=== PATIENT | male | born 1950 | race Caucasian/White ===

== ENCOUNTER 2018-02-21 05:51 | Inpatient (IN) | payer OTHER ==
[2018-02-21] MEDS ORDERED: ASPIRIN 81 MG CHEWABLE TABLET ONE (06:17)
[2018-02-21] MEDS ORDERED: DEXAMETHASONE 10 MG/ML VIAL ONE (06:18)
[2018-02-21] MEDS ORDERED: Magnesium Sulfate 2gm IVPB 2 G/50 ML BAG IV ONE (06:18)
[2018-02-21] MEDS ORDERED: LEVALBUTEROL 1.25 MG/3 ML NEB ONE (06:18)
[2018-02-21 06:53] LABS: Arterial Blood Carboxyhemoglob 0.7 % (0-1.5); Blood Gas Oxyhemoglobin 97.6 % (94-97)
[2018-02-21 07:36] LABS: Protime INR 1.02
[2018-02-21 07:38] LABS: Absolute Lymphocytes (CBC) 0.3 K/uL (0.7-4.9); Absolute Monocytes 0.3 K/uL (0.1-1.3); Absolute Neutrophil 3.8 K/uL (1.8-8.0); Basophils % 0.3 % (0-1.3); Hematocrit 47.7 % (39.6-49.0); Lymphocytes % 6.8 % (15.3-44.8); MCH 32.3 pg (27.0-35.0); MPV 7.6 fL (7.6-11.3); Monocytes % 6.6 % (3.3-12.3); RBC Red Blood Cell Count 4.97 M/uL (4.33-5.43)
[2018-02-21 07:49] LABS: Potassium 4.6 mEq/L (3.6-5.0)
[2018-02-21 07:55] LABS: Albumin 5.2 g/dL (3.2-5.5); Bilirubin Direct 0.1 mg/dL (0-0.2); Bilirubin Total 1.1 mg/dL (0.3-1.2); Magnesium 2.1 mg/dL (1.8-2.5); Protein, Total 8.6 g/dL (6.0-8.3)
--- NOTE | 2018-02-21 08:04 | ER ---
Nurse's Notes [facility] Department Name: Zane Dave Age: 67 yrs Sex: Male : 1950 Arrival Date: 02/21/2018 Time: 05:52 Bed 4 Private MD: Diagnosis: Chronic obstructive pulmonary disease with (acute) exacerbation Presentation: 02/21 05:53 Presenting complaint: EMS states: Shortness of breath x3 days; Hx of COPD; Albuterol lp1 nebs at home with no relief; On arrival of EMS, Patient 88% on RA; Wears home O2 when needed. Transition of care: patient was not received from another setting of care. Onset of symptoms was February 18, 2018. Care prior to arrival: Medication(s) given: Albuterol Neb x 2, Atrovent Neb x 2. 05:53 Method Of Arrival: EMS: [facility] lp1 05:53 Acuity: TABBY 2 lp1 Triage Assessment: 05:57 General: Appears distressed, Behavior is cooperative. Respiratory: Airway is patent lp1 Trachea midline Respiratory effort is labored, with retractions, using tripod position, Respiratory pattern is tachypnea Onset: The symptoms/episode began/occurred gradually, the patient has severe shortness of breath. Historical: - Allergies: 05:56 No Known Allergies; lp1 - Home Meds: 05:56 albuterol sulfate 2.5 mg /3 mL (0.083 %) Inhl nebu 3 mL 3 times per day [Active]; lp1 amlodipine 10 mg tab 1 tab once daily [Active]; prednisone 5 mg Oral tab once daily [Active]; ProAir HFA inhalation [Active]; - PMHx: 05:56 Asthma; COPD; Hypertension; lp1 - PSHx: 05:56 None; lp1 - Immunization history:: Adult Immunizations up to date. - Social history:: Smoking status: Patient/guardian denies using tobacco, the patient reports quitting approximately 20 years ago. Screenin:58 Abuse screen: Denies threats or abuse. Denies injuries from another. Nutritional lp1 screening: No deficits noted. Tuberculosis screening: No symptoms or risk factors identified. Fall Risk Total Santana Fall Scale indicates High Risk Score (45 or more points). Fall prevention measures have been instituted. Side Rails Up X 2 As available patient and family educated on Fall Prevention Program and Strategies. Assessment: 06:00 General: Appears distressed, uncomfortable, Behavior is cooperative, appropriate for bs1 age, anxious. Pain: Denies pain. Neuro: Level of Consciousness is awake, alert, obeys commands, Oriented to person, place, time, situation, Appropriate for age [employer] Reset are equal bilaterally Moves all extremities. Gait is steady, Speech is normal, Facial symmetry appears normal. Cardiovascular: Reports diaphoresis, shortness of breath, Denies chest pain, Heart tones S1 S2 present Capillary refill < 3 seconds Patient's skin is warm and dry. Rhythm is regular. Respiratory: Reports shortness of breath at rest on exertion cough that is productive, Airway is patent Trachea midline Respiratory effort is using tripod position, Respiratory pattern is tachypnea Breath sounds with wheezes bilaterally. GI: No deficits noted. No signs and/or symptoms were reported involving the gastrointestinal system. Abdomen is round Bowel sounds present X 4 quads. : No deficits noted. No signs and/or symptoms were reported regarding the genitourinary system. EENT: No deficits noted. No signs and/or symptoms were reported regarding the EENT system. Derm: No deficits noted. No signs and/or symptoms reported regarding the dermatologic system. Skin is intact, Skin is pink, warm \T\ dry. Skin temperature is warm. Musculoskeletal: No deficits noted. No signs and/or symptoms reported regarding the musculoskeletal system. Circulation, motion, and sensation intact. Capillary refill < 3 seconds, Range of motion: intact in all extremities. 06:10 Reassessment: BiPAP placed on patient at this time; 10/14, Rate 12, 30% O2. lp1 06:35 Reassessment: Patient and/or family updated on plan of care and expected duration. Pain bs1 level reassessed. Patient is alert, oriented x 3, equal unlabored respirations, skin warm/dry/pink. Symptoms improving. Patient on bipap. Respiratory at bedside drawing ABG. 07:30 Reassessment: Patient appears in no apparent distress at this time. Patient and/or sv family updated on plan of care and expected duration. Pain level reassessed. Patient is alert, oriented x 3, equal unlabored respirations, skin warm/dry/pink. Patient states feeling better. Patient states symptoms have improved. 09:17 Reassessment: Patient appears in no apparent distress at this time. Patient and/or sv family updated on plan of care and expected duration. Pain level reassessed. Patient is alert, oriented x 3, equal unlabored respirations, skin warm/dry/pink. Patient states feeling better. Patient states symptoms have improved. Vital Signs: 05:56 BP 150 / 111; Pulse 103; Resp 26; Temp 98.5(O); Pulse Ox 97% on Nebulizer Mask; Weight lp1 102.06 kg; Height 6 ft. 1 in. (185.42 cm); Pain 5/10; 06:09 BP 145 / 83; Pulse 88; Resp 16; Pulse Ox 99% on BiPAP; mt 07:30 BP 130 / 66; Pulse 70; Resp 16; Pulse Ox 97% on 30% BiPAP; sv 08:20 BP 125 / 63; Pulse 59; Resp 19; Pulse Ox 95% on 30% BiPAP; sv 09:17 BP 127 / 73; Pulse 59; Resp 12; Pulse Ox 96% on 30% BiPAP; sv 05:56 Body Mass Index 29.68 (102.06 kg, 185.42 cm) lp1 Andres Coma Score: 05:58 Eye Response: spontaneous(4). Verbal Response: oriented(5). Motor Response: obeys lp1 commands(6). Total: 15. ED Course: 05:52 Patient arrived in ED. lp1 05:52 Warren Greenberg MD is Attending Physician. nj 05:55 Triage completed. lp1 05:55 Arm band placed on right wrist. lp1 05:58 Inserted saline lock: 20 gauge in left antecubital area, using aseptic technique. Blood lp1 collected. By Bess Chavarria RN. 05:59 Patient has correct armband on for positive identification. Bed in low position. Call lp1 light in reach. gambling monitor on. Pulse ox on. NIBP on. 06:01 EKG done, by ED staff, reviewed by Warren Greenberg MD. mt 06:07 Levi Montgomery PA is PHCP. cp 06:30 Bess Chavarria, RN is Primary Nurse. bs1 07:01 Report given to GERARDO Jamil. bs1 08:03 Catina Isaac MD is Hospitalizing Provider. cp 09:14 Blood Culture Sent. sv 09:14 Influenza Screen (A Sent. sv 09:19 No provider procedures requiring assistance completed. Patient admitted, IV remains in sv place. intact. Administered Medications: 06:09 Drug: Aspirin Chewable Tablet 324 mg Route: PO; tl2 06:34 Follow up: Response: No adverse reaction bs1 06:09 Drug: Xopenex 1.25 mg Route: Inhalation; tl2 06:09 Drug: Decadron - Dexamethasone 10 mg Route: IVP; Site: left antecubital; tl2 06:34 Follow up: Response: No adverse reaction bs1 06:09 Drug: Magnesium Sulfate 2 grams Route: IVPB; Infused Over: 2 hrs; Site: left tl2 antecubital; 06:09 Drug: Xopenex (3) 1.25 mg Route: Inhalation; tl2 Outcome: 08:03 Decision to Hospitalize by Provider. cp 09:21 Admitted to Tele accompanied by tech, via stretcher, room 228, with oxygen, with chart, sv Report called to Araceli CARRILLO 09:21 Condition: stable 09:21 Instructed on the need for admit. 09:43 Patient left the ED. sv Signatures: Loulou Florez, RN RN sv Alvina Cardenas, RN RN lp1 Levi Montgomery PA PA cp Katarzyna Ureña, RN RN tl2 Aminata Feldman mt, William, MD MD wa Salazar, Brittany, RN RN bs1
--- NOTE | 2018-02-21 08:04 | EDPHYS ---
Physician Documentation [facility] Name: Zane Dave Age: 67 yrs Sex: Male : 1950 Arrival Date: 02/21/2018 Time: 05:52 Bed 4 Private MD: ED Physician Warren Gerenberg HPI: 02/21 06:09 This 67 yrs old Male presents to ER via EMS with complaints of Shortness Of cp Breath. 06:09 The patient has shortness of breath at rest. Onset: The symptoms/episode began/occurred cp 3 day(s) ago. Duration: The symptoms are continuous, and are steadily getting worse. Associated signs and symptoms: Pertinent negatives: chest pain, fever, hemoptysis. Historical: - Allergies: 05:56 No Known Allergies; lp1 - Home Meds: 05:56 albuterol sulfate 2.5 mg /3 mL (0.083 %) Inhl nebu 3 mL 3 times per day [Active]; lp1 amlodipine 10 mg tab 1 tab once daily [Active]; prednisone 5 mg Oral tab once daily [Active]; ProAir HFA inhalation [Active]; - PMHx: 05:56 Asthma; COPD; Hypertension; lp1 - PSHx: 05:56 None; lp1 - Immunization history:: Adult Immunizations up to date. - Social history:: Smoking status: Patient/guardian denies using tobacco, the patient reports quitting approximately 20 years ago. ROS: 06:10 Eyes: Negative for injury, pain, redness, and discharge. cp 06:10 Constitutional: Negative for body aches, chills, fever, poor PO intake. 06:10 ENT: Negative for drainage from ear(s), ear pain, sore throat, difficulty swallowing, difficulty handling secretions. 06:10 Cardiovascular: Negative for chest pain, edema, palpitations. 06:10 Respiratory: Positive for shortness of breath, at rest. wheezing. 06:10 Abdomen/GI: Negative for abdominal pain, nausea, vomiting, and diarrhea, black/tarry stool, rectal bleeding. 06:10 Neuro: Negative for altered mental status, dizziness, headache, weakness. 06:10 All other systems are negative. Exam: 06:07 ECG was reviewed by the Attending Physician. cp 06:12 Head/Face: Normocephalic, atraumatic. cp 06:12 Constitutional: The patient appears in no acute distress, alert, awake, non-diaphoretic, non-toxic, well developed, well nourished. 06:12 Eyes: Periorbital structures: appear normal, Pupils: equal, round, and reactive to light and accomodation, Extraocular movements: intact throughout, Conjunctiva: normal, no exudate, no injection, Sclera: no appreciated abnormality, Lids and lashes: appear normal, bilaterally. 06:12 ENT: External ear(s): are unremarkable, Nose: is normal, Mouth: is normal. 06:12 Neck: ROM/movement: is normal, is supple, without pain, no range of motions limitations, no meningismus, no nuchal rigidity. 06:12 Chest/axilla: Inspection: normal, Palpation: is normal, no crepitus, no tenderness. 06:12 Cardiovascular: Rate: normal, Rhythm: regular, Edema: is not appreciated, JVD: is not appreciated. 06:12 Respiratory: Respirations: labored breathing, Breath sounds: decreased breath sounds, that are moderate, throughout, stridor, is not appreciated, wheezing: that is mild, is heard diffusely. 06:12 Abdomen/GI: Inspection: abdomen appears normal, Bowel sounds: active, all quadrants, Palpation: abdomen is soft and non-tender, in all quadrants. 06:12 Skin: cellulitis, is not appreciated, no rash present. 06:12 Neuro: Orientation: to person, place \T\ time. Mentation: lucid, able to follow commands, Cerebellar function: is grossly normal, Motor: moves all fours, strength is normal. Vital Signs: 05:56 BP 150 / 111; Pulse 103; Resp 26; Temp 98.5(O); Pulse Ox 97% on Nebulizer Mask; Weight lp1 102.06 kg; Height 6 ft. 1 in. (185.42 cm); Pain 5/10; 06:09 BP 145 / 83; Pulse 88; Resp 16; Pulse Ox 99% on BiPAP; mt 07:30 BP 130 / 66; Pulse 70; Resp 16; Pulse Ox 97% on 30% BiPAP; sv 08:20 BP 125 / 63; Pulse 59; Resp 19; Pulse Ox 95% on 30% BiPAP; sv 09:17 BP 127 / 73; Pulse 59; Resp 12; Pulse Ox 96% on 30% BiPAP; sv 05:56 Body Mass Index 29.68 (102.06 kg, 185.42 cm) lp1 Andres Coma Score: 05:58 Eye Response: spontaneous(4). Verbal Response: oriented(5). Motor Response: obeys lp1 commands(6). Total: 15. MDM: 05:52 Patient medically screened. pa 06:15 Differential diagnosis: asthma, Bronchitis CHF exacerbation, Chronic Obstructive cp Pulmonary Disease Myocardial Infarction pneumonia, Pneumothorax reactive airway disease, Unstable Angina. 08:00 Data reviewed: vital signs, nurses notes, lab test result(s), EKG, radiologic studies, cp plain films. Test interpretation: by ED physician or midlevel provider: ECG, plain radiologic studies. 08:00 Counseling: I had a detailed discussion with the patient and/or guardian regarding: the cp historical points, exam findings, and any diagnostic results supporting the discharge/admit diagnosis, lab results, radiology results, the need for further work-up and treatment in the hospital. 08:00 Physician consultation: Catina Isaac MD was called at 08:00, was contacted at 08:00, regarding admission, to the telemetry unit. patient's condition. 02/21 05:54 Order name: Blood Culture Adult (2) 02/21 05:54 Order name: BMP 02/21 05:54 Order name: BNP 02/21 05:54 Order name: CBC with Diff 02/21 05:54 Order name: CPK 02/21 05:54 Order name: Hepatic Function 02/21 05:54 Order name: Magnesium 02/21 05:54 Order name: PT-INR 02/21 05:54 Order name: Troponin (emerg Dept Use Only) 02/21 05:56 Order name: Flu 02/21 05:58 Order name: ABG 02/21 06:54 Order name: ABG Arterial Blood Gas; Complete Time: 07:42 EDMS 02/21 07:05 Interpretation: Normal except: ABGPCO2 45.7; ABGPO2 149.0; ABGSO2 99.0; DGDF1OE 97.6. cp 02/21 07:41 Order name: CBC with Automated Diff; Complete Time: 07:42 EDMS 02/21 07:42 Interpretation: Normal except: EDITH% 86.3; LYM% 6.8; LYMA 0.3. 02/21 07:42 Order name: Protime (+INR); Complete Time: 07:52 EDMS 02/21 05:54 Order name: BIPAP pa 02/21 05:55 Order name: Chest Single View XRAY pa 02/21 07:48 Order name: Influenza Screen (A ; Complete Time: 07:52 EDMS 02/21 07:53 Interpretation: Reviewed. 02/21 07:49 Order name: Basic Metabolic Panel; Complete Time: 07:59 EDMS 02/21 07:59 Interpretation: Normal except: GLUC 185; GFR 76. 02/21 07:55 Order name: Liver (Hepatic) Function; Complete Time: 07:59 EDMS 02/21 08:00 Interpretation: Normal except: TP 8.6. 02/21 07:55 Order name: Creatine Phosphokinase; Complete Time: 07:59 EDMS 02/21 07:55 Order name: Magnesium; Complete Time: 07:59 EDMS 02/21 08:00 Interpretation: Reviewed. 02/21 07:56 Order name: Troponin (Emerg Dept Use Only); Complete Time: 07:59 EDMS 02/21 08:00 Interpretation: TROPED < 0.03; Reviewed. 02/21 07:59 Order name: BNP B-Type Natriuretic Peptide; Complete Time: 07:59 EDMS 02/21 08:00 Interpretation: Report reviewed. 02/21 08:35 Order name: RAD [facility] 02/21 08:37 Order name: CBC with Automated Diff [facility] 02/21 08:37 Order name: CBC Smear Scan [facility] 02/21 08:53 Order name: Influenza Screen (A [facility] 02/21 08:54 Order name: Blood Culture [facility] 02/21 05:54 Order name: EKG; Complete Time: 05:55 pa 02/21 05:54 Order name: Cardiac monitoring; Complete Time: 05:59 pa 02/21 05:54 Order name: EKG - Nurse/Tech; Complete Time: 06:00 pa 02/21 05:54 Order name: IV Saline Lock; Complete Time: 05:59 pa 02/21 05:54 Order name: Labs collected and sent; Complete Time: 06:00 pa 02/21 05:54 Order name: O2 Per Protocol; Complete Time: 05:59 pa 02/21 05:54 Order name: O2 Sat Monitoring; Complete Time: EC:07 Rate is 95 beats/min. Rhythm is regular. KS interval is normal. QRS interval is cp prolonged at 136 msec. QT interval is normal. No ST changes noted. Interpreted by me. Reviewed by me. Administered Medications: 06:09 Drug: Aspirin Chewable Tablet 324 mg Route: PO; tl2 06:34 Follow up: Response: No adverse reaction bs1 06:09 Drug: Xopenex 1.25 mg Route: Inhalation; tl2 06:09 Drug: Decadron - Dexamethasone 10 mg Route: IVP; Site: left antecubital; tl2 06:34 Follow up: Response: No adverse reaction bs1 06:09 Drug: Magnesium Sulfate 2 grams Route: IVPB; Infused Over: 2 hrs; Site: left tl2 antecubital; 06:09 Drug: Xopenex (3) 1.25 mg Route: Inhalation; tl2 Disposition: 02/21/18 08:03 Hospitalization ordered by Catina Isaac for Inpatient Admission. Preliminary diagnosis is Chronic obstructive pulmonary disease with (acute) exacerbation. - Bed requested for Telemetry/MedSurg (Inpatient). - Status is Inpatient Admission. sv - Condition is Stable. - Problem is an acute exacerbation. - Symptoms have improved. UTI on Admission? No Addendum: 02/23/2018 07:00 Co-signature as Attending Physician, Warren Greenberg MD I agree with the assessment and w a plan of care. Signatures: Dispatcher [employer] EDMS Aline Almanzar Stephanie, RN RN Alvina Cardenas RN RN lp1 Levi Montgomery PA PA cp Katarzyna Ureña RN RN tl2 Warren Greenberg MD MD wa Salazar, Brittany RN bs1 Corrections: (The following items were deleted from the chart) 02/21 07:42 07:42 Normal except: EDITH% 86.3; LYM% 6.8. cp cp 08:00 07:53 Normal except: GLUC 185. cp cp
--- NOTE | 2018-02-21 08:34 | RAD REPORT ---
EXAM DESCRIPTION: RAD - Chest Single View - 02/21/2018 8:10 am CLINICAL HISTORY: Shortness of breath COMPARISON: October 2017 TECHNIQUE: AP portable chest image was obtained 0601 hours . FINDINGS: No focal mass, consolidation or failure. Interstitial markings are prominent but not clear ly different. Slight eventration of the diaphragm noted. Trachea is midline. Heart and vasculature ar e normal. No measurable pleural effusion and no pneumothorax. No gross bony abnormality seen. No acut e aortic findings suspected. IMPRESSION: Mild chronic interstitial lung disease with no acute cardiopulmonary process. Chest findings are stable from October 2017.
[2018-02-21 08:36] LABS: Platelet Estimate ADEQ; Urine White Blood Cell Casts OK
[2018-02-21 08:37] LABS: Blood Morphology Comment NOT SEEN (NOT SEEN)
[2018-02-21] MEDS ORDERED: ONDANSETRON 4 MG/2 ML VIAL IV PRN (09:16)
--- NOTE | 2018-02-21 10:47 | EKG ---
Test Date: 2018-02-21 Test Time: 05:55:36 Grievance And Appeals Coordinator: WILLIAM MEASUREMENT RESULTS: Intervals: Rate: 95 UT: 152 QRSD: 136 QT: 376 QTc: 472 [place]: P: 77 UT: 152 QRS: 94 T: 74 INTERPRETIVE STATEMENTS: Normal sinus rhythm Right atrial enlargement Right bundle branch block Abnormal ECG Compared to ECG 10/29/2017 04:22:01 Atrial abnormality now present Electronically Signed On 02-21-18 10:47:04 CDT by Aryan Isidro
[2018-02-21] MEDS: ALBUTEROL 2.5 MG/3 ML NEB SOL NEB SCH ×4 (11:22→23:11)
[2018-02-21] MEDS: IPRATROPIUM BROM 0.5MG/2.5ML NEB SCH ×4 (11:23→23:11)
[2018-02-21] MEDS ORDERED: IPRATROPIUM BROM 0.5MG/2.5ML ONE (11:34)
[2018-02-21] MEDS ORDERED: ALBUTEROL 2.5 MG/3 ML NEB SOL ONE (11:34)
[2018-02-21] MEDS: predniSONE 20 MG TAB PO SCH ×2 (13:53→21:22)
[2018-02-21] MEDS ORDERED: IPRATROPIUM BROM 0.5MG/2.5ML NEB SCH (14:00)
[2018-02-21] MEDS ORDERED: ALBUTEROL 2.5 MG/3 ML NEB SOL NEB SCH (14:00)
--- NOTE | 2018-02-21 15:06 | P.HP ---
Certification for Inpatient Patient admitted to: Observation With expected LOS: >2 Midnights Patient will require the following post-hospital care: None Practitioner: I am a practitioner with admitting privileges, knowledge of patient current condition, hospital course, and medical plan of care. Services: Services provided to patient in accordance with Admission requirements found in Title 42 Section 412.3 of the Code of Federal Regulations Patient History Date of Service: 02/21/18 Primary Care Provider: Dr Lovelace Reason for admission: SOB History of Present Illness: This is a 67-year-old male with significant past medical history of COPD and high blood pressure presented to the ED complaining of having some shortness of breath. Pt states his difficulty breathing is going on for a week. He said he has been having cough and exertional dyspnea. He has not been improving. He came to the emergency room for further evaluation. Patient stated that he woke up this morning with a lot of sweating and his bed was wet. He had been having low-grade fevers at home as well. Patient stated that he has had similar episodes in the past and has probably used his albuterol and got better however this time around albuterol had not helped him and thus he decided to come to the ER. In the ER patient was placed on BiPAP initially and was weaned off to nasal cannula. Clinically patient is stable at this time does appear to be in mild distress due to dyspnea. Allergies No Known Drug Allergies Allergy (Verified 02/05/16 01:06) Unknown No Known Allergies Allergy (Uncoded 02/08/16 05:25) Unknown Home Medications: Albuterol Neb [Proventil 0.083% Neb Soln] 2.5 mg IH QID 02/04/12 Albuterol Inhaler [Ventolin Inhaler*] 90 mg IN BID PRN 05/19/15 Umeclidinium Brm/Vilanterol Tr [Anoro Ellipta 62.5-25 Mcg INH] 1 inh IH DAILY Ipratropium Neb [Atrovent Neb] 0.5 mg IH Q4HP PRN 04/16/16 Prednisone [Deltasone] 20 mg PO DAILY 04/16/16 Amlodipine Besylate [Amlodipine Besylate] 1 tab PO DAILY 02/21/18 Lisinopril [Prinivil] 10 mg PO DAILY 02/21/18 - Past Medical/Surgical History Diabetic: No -: copd -: Asthma -: HTN -: bilateral hand sx -: tonsilectomy - Family History Mother -: Heart disease, Hypertension, Lung disease, Diabetes Notes: hx dementia 92 years old Father -: Heart disease, Hypertension, Lung disease, Diabetes Notes: , passed 1994 80 years old COPD Brother -: Heart disease, Hypertension, Lung disease, Cancer Notes: brother , 71 years old lung ca brain ca Sister -: Heart disease, Cancer Notes: ca: leg, varicose veins, brain ca - Social History Alcohol use: Yes CD- Drugs: No Caffeine use: Yes Review of Systems General: As per HPI Physical Examination - Vital Signs Temperature: 97.7 F Blood Pressure: 198/93 Pulse: 77 Respirations: 20 Pulse Ox (%): 95 - Physical Exam General: Alert, Oriented x3, Mild distress HEENT: Atraumatic Neck: Supple Respiratory: Normal air movement, Crackles/rales, Expiratory wheezes, Inspiratory wheezes Cardiovascular: Regular rate/rhythm, Normal S1 S2 Gastrointestinal: Normal bowel sounds, No tenderness Musculoskeletal: No tenderness Integumentary: No rashes Neurological: Normal speech, Normal strength at 5/5 x4 extr, Normal tone, Normal affect Lymphatics: No axilla or inguinal lymphadenopathy - Studies Laboratory Data (last 24 hrs) 02/21/18 06:00: PT 12.0, INR 1.02 02/21/18 06:00: WBC 4.4, Hgb 16.0, Hct 47.7, Plt Count 235 02/21/18 06:00: B-Natriuretic Peptide 21 02/21/18 06:00: Sodium 141, Potassium 4.6, BUN 13, Creatinine 0.99, Glucose 185 H, Magnesium 2.1, Total Bilirubin 1.1, AST 26, ALT 20, Alkaline Phosphatase 73 02/21/18 05:54: PT Cancelled, INR Cancelled 02/21/18 05:54: WBC Cancelled, Hgb Cancelled, Hct Cancelled, Plt Count Cancelled 02/21/18 05:54: B-Natriuretic Peptide Cancelled 02/21/18 05:54: Sodium Cancelled, Potassium Cancelled, BUN Cancelled, Creatinine Cancelled, Glucose Cancelled, Magnesium Cancelled, Total Bilirubin Cancelled, AST Cancelled, ALT Cancelled, Alkaline Phosphatase Cancelled Microbiology Data (last 24 hrs): 02/21/18 06:00 Nasopharnyx Influenza Type A Antigen Screen - Final 02/21/18 06:00 Nasopharnyx Influenza Type B Antigen Screen - Final Assessment and Plan - Problems (Diagnosis) (1) COPD with acute exacerbation Onset Date: 04/16/16 Current Visit: No Status: Acute Plan: Most likely viral -Duonebs, Steriods and Oxygen -Does have home oxygen that he uses PRN -Pulmonology Consulted (2) Hypertension Onset Date: 04/16/16 Current Visit: No Status: Acute Plan: Will restart home medication Qualifiers: Hypertension type: essential hypertension Qualified Code(s): I10 - Essential (primary) hypertension Discharge Plan: Home Plan to discharge in: 48 Hours - Advance Directives Does patient have a Living Will: No Does patient have a Durable POA for Healthcare: No - Code Status/Comfort Care Code Status Assessed: Yes Critical Care: No
[2018-02-21 15:52] VITALS: BMI 29.7
[2018-02-21] MEDS ORDERED: INFLUENZA VACCINE (for 3y+) 0.5 ML DOSE IMVAC ONE (18:00)
[2018-02-21] MEDS ORDERED: PNEUMOCOCCAL VACCINE 0.5 ML IMVAC ONE (18:00)
[2018-02-21] MEDS: ACETAMINOPHEN 500 MG TAB PO PRN (21:26)
[2018-02-22] MEDS: IPRATROPIUM BROM 0.5MG/2.5ML NEB SCH ×4 (03:32→19:27)
[2018-02-22] MEDS: ALBUTEROL 2.5 MG/3 ML NEB SOL NEB SCH ×2 (03:32→07:42)
[2018-02-22] MEDS: ACETAMINOPHEN 500 MG TAB PO PRN (03:52)
[2018-02-22] MEDS ORDERED: AMLODIPINE 5 MG TAB PO ONE (04:03)
[2018-02-22 06:10] LABS: Absolute Lymphocytes (CBC) 0.5 K/uL (0.7-4.9); Absolute Monocytes 0.8 K/uL (0.1-1.3); Absolute Neutrophil 6.8 K/uL (1.8-8.0); Basophils % 0.2 % (0-1.3); Hematocrit 42.8 % (39.6-49.0); MCH 32.8 pg (27.0-35.0); MCV 94.2 fL (80-100); MPV 7.5 fL (7.6-11.3); Monocytes % 10.2 % (3.3-12.3); RBC Red Blood Cell Count 4.54 M/uL (4.33-5.43)
[2018-02-22 06:32] LABS: Albumin 4.3 g/dL (3.2-5.5); Bilirubin Total 1.1 mg/dL (0.3-1.2); Magnesium 2.2 mg/dL (1.8-2.5); Potassium 5.1 mEq/L (3.6-5.0); Protein, Total 6.9 g/dL (6.0-8.3)
--- NOTE | 2018-02-22 07:36 | RAD REPORT ---
EXAM DESCRIPTION: RAD - Chest Pa And Lat (2 Views) - 02/22/2018 6:50 am CLINICAL HISTORY: Shortness of breath COMPARISON: February 21, November 29, 2017 TECHNIQUE: PA and lateral views of the chest were obtained. FINDINGS: The lungs are clear of a focal mass, infiltrate or acute failure finding. Trachea is midli ne. There is slight flattening of the diaphragm. Retrosternal space is increased slightly. Heart siz e is normal and central vasculature is within normal limits. No pleural effusion or pneumothorax see n. No acute bony finding. Thoracic spine degenerative changes are present without an acute component . Focal nodularity lateral right midlung field has the appearance of a subacute or old rib injury. A this is difficult to confirm on the October comparison study. Correlation is needed with any history of anterior right rib injury. Pathologic rib process is unlikely. No aortic abnormality. IMPRESSION: Patient has an underlying fibrotic an obstructive lung pattern. No acute findings seen. Patient appears to have subacute to chronic anterior right rib fracture changes. These cannot be conf irmed on the October study. Correlation is needed with any history of anterior right rib injury.
--- NOTE | 2018-02-22 08:31 | P.CNS ---
Date of Consult: 02/22/18 Reason for Consult: Shortness of breath Primary Care Provider: Dr Lovelace Chief Complaint: SOB History of Present Illness: Patient is 67 years of age well known to me with a history of severe COPD recurrent exacerbation got worse for the past 4-5 days worsening dyspnea nocturnal sleep distal arm and cough congestion was admitted to the hospital patient takes prednisone 10 mg a day in addition to nebulizer albuterol and ipratropium he cannot afford any long-acting bronchodilators denies any fever chills no edema Allergies No Known Drug Allergies Allergy (Verified 02/05/16 01:06) Unknown No Known Allergies Allergy (Uncoded 02/08/16 05:25) Unknown Home Medications: Albuterol Neb [Proventil 0.083% Neb Soln] 2.5 mg IH QID 02/04/12 Albuterol Inhaler [Ventolin Inhaler*] 90 mg IN BID PRN 05/19/15 Umeclidinium Brm/Vilanterol Tr [Anoro Ellipta 62.5-25 Mcg INH] 1 inh IH DAILY Ipratropium Neb [Atrovent Neb] 0.5 mg IH Q4HP PRN 04/16/16 Prednisone [Deltasone] 20 mg PO DAILY 04/16/16 Amlodipine Besylate [Amlodipine Besylate] 1 tab PO DAILY 02/21/18 Lisinopril [Prinivil] 10 mg PO DAILY 02/21/18 - Past Medical/Surgical History Diabetic: No -: copd -: HTN -: bilateral hand sx -: tonsilectomy - Family History Mother Medical History: Heart disease, Hypertension, Lung disease, Diabetes Notes: hx dementia 92 years old Father Medical History: Heart disease, Hypertension, Lung disease, Diabetes Notes: , 1994 80 years old COPD Brother Medical History: Heart disease, Hypertension, Lung disease, Cancer Notes: brother , 71 years old lung ca brain ca Sister Medical History: Heart disease, Cancer Notes: ca: leg, varicose veins, brain ca - Social History Smoking Status: Former smoker Alcohol use: Yes CD- Drugs: No Caffeine use: Yes Review of Systems 10-point ROS is otherwise unremarkable General: Weakness Respiratory: Cough, Shortness of Breath Physical Examination Temp Pulse Resp BP Pulse Ox 97.6 F 76 20 184/88 H 96 02/22/18 04:00 02/22/18 04:52 02/22/18 04:00 02/22/18 04:52 02/22/18 04:00 General: Alert, Moderate distress Respiratory: Expiratory wheezes Cardiovascular: No edema, Regular rate/rhythm Gastrointestinal: Normal bowel sounds, Soft and benign Musculoskeletal: No clubbing, No swelling Integumentary: No rashes, No breakdown Laboratory Data (last 24 hrs) 02/21/18 05:54: PT Cancelled, INR Cancelled 02/21/18 05:54: WBC Cancelled, Hgb Cancelled, Hct Cancelled, Plt Count Cancelled 02/21/18 05:54: B-Natriuretic Peptide Cancelled 02/21/18 05:54: Sodium Cancelled, Potassium Cancelled, BUN Cancelled, Creatinine Cancelled, Glucose Cancelled, Magnesium Cancelled, Total Bilirubin Cancelled, AST Cancelled, ALT Cancelled, Alkaline Phosphatase Cancelled - Problems (1) COPD with acute exacerbation Onset Date: 04/16/16 Current Visit: No Status: Acute Plan: Patient is 67 years of age admitted 4-5 day history of increasing shortness of breath chest congestion he has an exacerbation of underlying COPD continue with bronchodilator steroid labs reviewed and a p.o. 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
[2018-02-22] MEDS ORDERED: FUROSEMIDE 20 MG/ 2ML VIAL IV ONE (08:32)
[2018-02-22] MEDS ORDERED: [UNRECOGNIZED DRUG - OTHER] IH SCH (09:00)
[2018-02-22] MEDS: predniSONE 20 MG TAB PO SCH ×2 (09:30→21:01)
[2018-02-22] MEDS: hydroCHLOROthiazide 12.5 MG CAP PO SCH (09:30)
[2018-02-22] MEDS: AMLODIPINE 10 MG TAB PO SCH (09:31)
[2018-02-22] MEDS: LISINOPRIL 10 MG TAB PO SCH (09:31)
[2018-02-22] MEDS: levoFLOXacin 500 MG TAB PO SCH (09:31)
[2018-02-22] MEDS: BENZONATATE 100 MG CAP PO PRN ×2 (10:43→21:03)
[2018-02-22] MEDS: ALBUTEROL 2.5 MG/3 ML NEB SOL NEB PRN ×2 (11:36→19:27)
[2018-02-22] MEDS: ARFORMOTEROL TARTRATE 15 MCG/2 ML VIAL.NEB NEB SCH ×2 (11:36→19:27)
--- NOTE | 2018-02-22 18:46 | PN ---
Date of Progress Note: 02/22/2018 The patient seen and examined. Chart reviewed and case discussed with RN. Subjective: The patient states that he is still having some shortness of breath, worse with exertion also reports some cough. Review of Systems: Negative except as above. Medications: Reviewed. Physical Examination: Vital Signs: Temperature 97.6, heart rate 79, blood pressure 158/76, respirations 16, O2 95% on 3 L via nasal cannula. General: Awake, alert, oriented x3, in some mild respiratory distress. Elderly male, ill appearing. CV: S1, S2. No murmurs. Regular rate and rhythm. Peripheral pulses present. Respiratory: Diminished breath sounds bilaterally. Some mild wheezing. Gastrointestinal: Abdomen is soft, nontender, nondistended. Positive bowel sounds. Extremities: No clubbing, cyanosis, or edema. Neurologic: Nonfocal. Laboratory Data: Sodium 138, potassium 5.1, chloride 102, CO2 27, BUN 21, creatinine 0.98, glucose 1 53, calcium 9.2. WBC 8.1, H and H 14.9, 42.8, platelets 219, neutrophils 83%. Chest x-ray, personal ly reviewed, shows underlying fibrotic and obstructive lung pattern. No acute finding. The patient appears to have a subacute to chronic anterior right rib fracture changes. This cannot be confirmed with the Pasha study. Assessment And Plan: A 67-year-old male with: 1.Acute chronic obstructive pulmonary disease exacerbation. We will continue with DuoNeb, supplemen swapnil oxygen. The patient does require oxygen at home. However, only as needed. Continue steroids an d taper. Appreciate Dr. Frank's input. 2.Essential hypertension. Resume home medications as appropriate. 3.Overweight, BMI 29.7. 4.Chronic respiratory failure. The patient is on home oxygen for chronic obstructive pulmonary dise ase. Has underlying fibrotic lung disease and severe chronic obstructive pulmonary disease. Plan: Continue current treatment. Appreciate Dr. Frank's input. SA/SHE Voice ID: [id number] Report ID: [id number]
[2018-02-23] MEDS: IPRATROPIUM BROM 0.5MG/2.5ML NEB SCH ×4 (01:23→19:49)
[2018-02-23] MEDS: ALBUTEROL 2.5 MG/3 ML NEB SOL NEB PRN ×3 (01:23→18:00)
[2018-02-23 06:04] LABS: Absolute Lymphocytes (CBC) 0.7 K/uL (0.7-4.9); Absolute Monocytes 1.3 K/uL (0.1-1.3); Absolute Neutrophil 10.1 K/uL (1.8-8.0); Basophils % 0.1 % (0-1.3); Hematocrit 45.3 % (39.6-49.0); Lymphocytes % 6.2 % (15.3-44.8); MCH 32.6 pg (27.0-35.0); MCV 94.1 fL (80-100); MPV 7.3 fL (7.6-11.3); Monocytes % 10.7 % (3.3-12.3); RBC Red Blood Cell Count 4.81 M/uL (4.33-5.43)
[2018-02-23 06:16] LABS: Albumin 4.6 g/dL (3.2-5.5); Bilirubin Total 1.2 mg/dL (0.3-1.2); Magnesium 2.3 mg/dL (1.8-2.5); Phosphorus 4.5 mg/dL (2.5-4.3); Protein, Total 7.2 g/dL (6.0-8.3)
[2018-02-23] MEDS: ARFORMOTEROL TARTRATE 15 MCG/2 ML VIAL.NEB NEB SCH ×2 (07:40→19:49)
[2018-02-23] MEDS: LISINOPRIL 10 MG TAB PO SCH (09:00)
[2018-02-23] MEDS: hydroCHLOROthiazide 12.5 MG CAP PO SCH (09:24)
[2018-02-23] MEDS: levoFLOXacin 500 MG TAB PO SCH (09:24)
[2018-02-23] MEDS: predniSONE 20 MG TAB PO SCH ×2 (09:24→21:01)
[2018-02-23] MEDS: AMLODIPINE 10 MG TAB PO SCH (09:24)
--- NOTE | 2018-02-23 16:54 | PN ---
Date of Progress Note: 02/23/2018 Subjective: The patient is seen and examined, chart reviewed, and case discussed with RN and Dr. Frank. The patient still complains of dyspnea upon exertion. States he is not feeling back to his usual self. Treatment plan explained. All questions answered. I explained to him in detail that he has pulmonary fibrosis and lung function. Will likely not return back to baseline. Review of Systems: Negative except as above. Medications: Reviewed. Physical Examination: Vital Signs: Temperature 97.8, heart rate 72, blood pressure 162/80, respirations 20, O2 96% on 3 L via nasal cannula. General: Awake, alert, oriented x3, elderly male, overweight, BMI 29.7, in some mild respiratory distress. CV: S1, S2. No murmurs. Peripheral pulses present. Respiratory: Diminished breath sounds. Some expiratory wheezes. The patient is tachypneic. No stridor. Gastrointestinal: Abdomen is soft, nontender, and nondistended. Positive bowel sounds. Extremities: No clubbing, cyanosis, or edema. Neurologic: Nonfocal. Laboratory Data: Sodium 136, potassium 5, chloride 98, CO2 28, BUN 34, creatinine 1.18, glucose 141, calcium 9.8, phosphorus 4.5, magnesium 2.3. WBC 12.1, H and H 15.7 and 45.3, platelets 225, neutrophils 83. Blood cultures, no growth to date. Assessment And Plan: A 67-year-old male with; 1. Acute chronic obstructive pulmonary disease exacerbation. Continue DuoNebs , steroids, supplemental O2. The patient has oxygen at home, uses it p.r.n. Dr. Frank on the case. 2. Essential hypertension, stable on home medications. 3. Overweight, BMI 29.7. 4. Chronic respiratory failure secondary to chronic obstructive pulmonary disease and fibrotic lung disease. Plan: Ambulate. Discharge planning. Likely discharge in the next 24-48 hours if continues to improve. /SHE Voice ID: [id number] Report ID: [id number] KINDRA
[2018-02-24] MEDS: IPRATROPIUM BROM 0.5MG/2.5ML NEB SCH ×4 (01:47→19:37)
[2018-02-24] MEDS: ALBUTEROL 2.5 MG/3 ML NEB SOL NEB PRN ×3 (01:47→19:37)
[2018-02-24 05:35] LABS: Absolute Lymphocytes (CBC) 1.1 K/uL (0.7-4.9); Absolute Monocytes 0.9 K/uL (0.1-1.3); Absolute Neutrophil 7.2 K/uL (1.8-8.0); Basophils % 0.1 % (0-1.3); Hematocrit 46.7 % (39.6-49.0); Lymphocytes % 11.9 % (15.3-44.8); MCV 94.1 fL (80-100); MPV 7.1 fL (7.6-11.3); RBC Red Blood Cell Count 4.96 M/uL (4.33-5.43)
[2018-02-24 05:53] LABS: Albumin 4.4 g/dL (3.2-5.5); Bilirubin Total 1.2 mg/dL (0.3-1.2); Magnesium 2.2 mg/dL (1.8-2.5); Phosphorus 4.4 mg/dL (2.5-4.3); Protein, Total 7.4 g/dL (6.0-8.3)
[2018-02-24] MEDS: ARFORMOTEROL TARTRATE 15 MCG/2 ML VIAL.NEB NEB SCH ×2 (07:46→19:37)
--- NOTE | 2018-02-24 08:46 | P.PN ---
Subjective Date of Service: 02/24/18 Primary Care Provider: Dr Lovelace Chief Complaint: COPD exacerbation No improvement still complains of shortness of breath on mild exertion dyspneic on talking unable to cough up any phlegm Review of Systems General: Weakness Respiratory: Cough, Shortness of Breath Physical Examination - Vital Signs Temperature: 97.4 F Blood Pressure: 142/84 Pulse: 76 Respirations: 20 Pulse Ox (%): 93 - Physical Exam General: Alert, Oriented x3, Moderate distress Respiratory: Diminished, Expiratory wheezes Cardiovascular: No edema, Normal S1 S2 Assessment & Plan - Problems (Diagnosis) (1) COPD with acute exacerbation Onset Date: 04/16/16 Current Visit: No Status: Acute Plan: Patient is 67 years of age with a history of seizures severe COPD admitted with an exacerbation he is not improved I have added dial arrest CT pulmonary angiogram 2D echocardiogram is on maximum bronchodilator therapy anti min trial of IV steroids
[2018-02-24] MEDS: AMLODIPINE 10 MG TAB PO SCH (09:45)
[2018-02-24] MEDS: ROFLUMILAST 500 MCG TABLET PO SCH (09:45)
[2018-02-24] MEDS: hydroCHLOROthiazide 12.5 MG CAP PO SCH (09:45)
[2018-02-24] MEDS: LISINOPRIL 10 MG TAB PO SCH (09:45)
[2018-02-24] MEDS: METHYLPREDNISOLONE 40 MG INJ IV SCH ×2 (09:45→16:42)
[2018-02-24] MEDS: levoFLOXacin 500 MG TAB PO SCH (09:45)
--- NOTE | 2018-02-24 10:27 | RAD REPORT ---
EXAM DESCRIPTION: CT - Chest For Pe Angio - 02/24/2018 10:03 am CLINICAL HISTORY: Shortness of breath COMPARISON: 2016 TECHNIQUE: Dynamically enhanced axial 3 mm thick images of the chest were obtained during administra tion of <100> mL Isovue 370 IV contrast. Coronal and oblique reconstruction images were generated and reviewed. Exam utilizes a protocol for optimal evaluation of pulmonary arterial tree. All CT scans are performed using dose optimization technique as appropriate and may include automated exposure control or mA/KV adjustment according to patient size. FINDINGS: A pulmonary embolus is not seen. A thoracic aortic aneurysm is not noted. A pleural effusion is not seen. A pericardial effusion is not seen. A lung consolidation is not present. A small hepatic cyst is present. IMPRESSION: Negative for a pulmonary embolism.
--- NOTE | 2018-02-24 15:21 | ECHO ---
HEIGHT: 6 ft 1 in WEIGHT: 225 lb 0 oz DATE OF STUDY: 02/24/[address]: Yonatan Frank MD 2-DIMENSIONAL: YES M.MODE: YES DOPPLER: YES COLOR FLOW: YES TDS: YES PORTABLE: NO DEFINITY: NO BUBBLE STUDY: NO DIAGNOSIS: SHORTNESS OF BREATH CARDIAC HISTORY: CATHERIZATION: NO SURGERY: NO PROSTHETIC VALVE: NO PACEMAKER: NO MEASUREMENTS (cm) DIASTOLIC (NORMALS) SYSTOLIC (NORMALS) IVSd 0.8 (0.6-1.2) LA Diam 2.6 (1.9-4.0) LVEF 75% LVIDd 4.9 (3.5-5.7) LVIDs 2.7 (2.0-3.5) %FS 44% LVPWd 0.9 (0.6-1.2) Ao Diam 2.9 (2.0-3.7) 2 DIMENSIONAL ASSESSMENT: RIGHT ATRIUM: NORMAL LEFT ATRIUM: NORMAL RIGHT VENTRICLE: NORMAL LEFT VENTRICLE: NORMAL TRICUSPID VALVE: NORMAL MITRAL VALVE: THICKENED ANNULUS PULMONIC VALVE: NORMAL AORTIC VALVE: NORMAL PERICARDIAL EFFUSION: NONE AORTIC ROOT: NORMAL LEFT VENTRICULAR WALL MOTION: NORMAL. DOPPLER/COLOR FLOW: NORMAL. COMMENTS: NORMAL LEFT VENTRICULAR EJECTION FRACTION. THICKENED MITRAL ANNULUS. NORMAL CARDIAD DOPPLER. TECHNOLOGIST: DAVIDSON ALLEN
[2018-02-24] MEDS: ENOXAPARIN 40 MG/0.4 ML SQ SCH (16:43)
--- NOTE | 2018-02-24 19:22 | PN ---
Date of Progress Note: 02/24/2018 Subjective: The patient is seen and examined, chart reviewed, and case discussed with RN. The patie nt has significant dyspnea on exertion with O2 saturation down in the 80s. Still complaining of some generalized weakness. Review of Systems: Negative except as above. Medications: Reviewed. Physical Examination: Vital Signs: Temperature 97.4, heart rate 76, blood pressure 142/84, respirations 20, O2 93% on 3 L via nasal cannula. General: Awake, alert, oriented, in some mild respiratory distress. CV: S1, S2. No murmurs. Peripheral pulses present bilaterally. Respiratory: Diminished breath sounds at the bases. Some wheezing. Gastrointestinal: Abdomen is soft, nontender, and nondistended. Positive bowel sounds. Extremities: No clubbing, cyanosis, or edema. Neurologic: Nonfocal. Laboratory Data: Sodium 137, potassium 5, chloride 95, CO2 of 31, BUN 38, creatinine 1.06, glucose 1 54, calcium 9.6, phosphorus 4.4, magnesium 2.2. WBC 9.3, H and H 15.9 and 46.7, platelets 234, neutr ophils 78%. Blood cultures, no growth to date. CT angio chest shows negative for PE. No lung conso lidation. Small hepatic cyst. No pleural effusion. No pericardial effusion. No thoracic aortic an eurysm. Assessment And Plan: A 67-year-old male with; 1.Acute chronic obstructive pulmonary disease exacerbation. We will continue DuoNebs. We will swit ch steroids to IV. Appreciate Dr. Frank's input. CT angio chest was negative for pulmonary embol ism. No consolidation or effusion. Continue to ambulate. 2.Essential hypertension, stable. 3.Overweight, BMI 29.7. 4.Chronic respiratory failure secondary to chronic obstructive pulmonary disease. 5.Fibrotic lung disease. The patient uses 3 L of oxygen at home. The patient counseled on the use of and compliance with long-acting bronchodilators. The patient can get samples from Dr. Frank's office. We will continue to monitor. Likely discharge in the next 24 hours if continues to improve. SA/MODL Voice ID: [id number] Report ID: [id number]
[2018-02-25] MEDS: METHYLPREDNISOLONE 40 MG INJ IV SCH ×3 (00:52→18:15)
[2018-02-25] MEDS: IPRATROPIUM BROM 0.5MG/2.5ML NEB SCH ×4 (01:30→19:58)
[2018-02-25] MEDS: ALBUTEROL 2.5 MG/3 ML NEB SOL NEB PRN ×3 (01:30→19:58)
[2018-02-25 05:40] LABS: Absolute Lymphocytes (CBC) 0.6 K/uL (0.7-4.9); Absolute Monocytes 0.3 K/uL (0.1-1.3); Absolute Neutrophil 9.1 K/uL (1.8-8.0); Basophils % 0.1 % (0-1.3); Hematocrit 45.6 % (39.6-49.0); MCH 32.1 pg (27.0-35.0); MCV 93.7 fL (80-100); MPV 7.3 fL (7.6-11.3); Monocytes % 2.5 % (3.3-12.3); RBC Red Blood Cell Count 4.87 M/uL (4.33-5.43)
[2018-02-25 05:52] LABS: Potassium 4.5 mEq/L (3.6-5.0)
[2018-02-25 06:59] LABS: Blood Morphology Comment NOT SEEN (NOT SEEN); Platelet Estimate ADEQ; Urine White Blood Cell Casts OK
[2018-02-25] MEDS: ARFORMOTEROL TARTRATE 15 MCG/2 ML VIAL.NEB NEB SCH ×2 (07:58→19:59)
[2018-02-25] MEDS: LISINOPRIL 10 MG TAB PO SCH ×2 (08:49→08:53)
[2018-02-25] MEDS: ROFLUMILAST 500 MCG TABLET PO SCH (08:49)
[2018-02-25] MEDS: levoFLOXacin 500 MG TAB PO SCH (08:49)
[2018-02-25] MEDS: AMLODIPINE 10 MG TAB PO SCH ×2 (08:50→08:52)
[2018-02-25] MEDS: hydroCHLOROthiazide 12.5 MG CAP PO SCH (08:50)
--- NOTE | 2018-02-25 12:58 | P.PN ---
Subjective Date of Service: 02/25/18 Primary Care Provider: Dr Lovelace Chief Complaint: COPD exacerbation Patient is slightly better today otherwise no other complaints still short of breath Review of Systems General: Weakness Respiratory: Cough, Shortness of Breath Physical Examination - Vital Signs Temperature: 97.8 F Blood Pressure: 181/81 Pulse: 90 Respirations: 20 Pulse Ox (%): 93 - Physical Exam General: Alert, Oriented x3, Mild distress Respiratory: Clear to auscultation bilaterally, Diminished Cardiovascular: No edema, Normal pulses Assessment & Plan - Problems (Diagnosis) (1) COPD with acute exacerbation Onset Date: 04/16/16 Current Visit: No Status: Acute Plan: Patient admitted with COPD exacerbation is now improving patient's room-air sat is 88% he will qualify for home O2 can be discharged home on Dulera prednisone 10 mg twice a day for 10 days to follow with me in 2 weeks continue with antibiotics for another 5 days due to severity of his exacerbation patient is normal echocardiogram no evidence of thromboembolism or pneumonia patient's blood pressure is elevated day he needs to go home O2 with a combination of l lisinopril and hydrochlorothiazide
[2018-02-25] MEDS: ENOXAPARIN 40 MG/0.4 ML SQ SCH (18:15)
--- NOTE | 2018-02-25 18:47 | PN ---
Date of Progress Note: 02/25/2018 The patient seen and examined. Chart reviewed and case discussed with RN and Dr. Frank. History: The patient states he is feeling better. He is able to ambulate, however, still gets very dyspneic. Review of Systems: Negative except as above. Medications: Reviewed. Physical Examination: Vital Signs: Temperature 97.8, heart rate 90, blood pressure 167/76, respirations 20, O2 93% on 3 L via nasal cannula. General: Awake, alert, oriented x3. Elderly male, in some mild distress. CV: S1, S2. No murmurs. Regular rate and rhythm. Peripheral pulses present. Respiratory: Diminished breath sounds. Some mild wheezing. No use of accessory muscles. Gastrointestinal: Abdomen is soft, nontender, nontender, nondistended. Positive bowel sounds. Extremities: No clubbing, cyanosis, or edema. Neurologic: Nonfocal. Laboratory Data: Sodium 135, potassium 4.5, chloride 97, CO2 28, BUN 43, creatinine 1.08, glucose 17 3, calcium 9.7. WBC 10, H and H 15.6 and 45.6, platelets 251, neutrophils 91%. Blood cultures no gr owth to date. Echocardiogram shows EF of 75%, thickened mitral annulus. Assessment And Plan: A 67-year-old male with: 1.Acute chronic obstructive pulmonary disease exacerbation. Continue DuoNebs and IV steroids. The patient is improving. Will continue to ambulate as tolerated. The patient is still having some dysp saima upon exertion. 2.Essential hypertension, stable. 3.Overweight, BMI 29.7. 4.Chronic respiratory failure secondary to chronic obstructive pulmonary disease and fibrotic lung d isease. 5.Fibrotic lung disease. 6.Gastrointestinal and deep venous thrombosis prophylaxis addressed. Plan: Discharge in a.m. /MODFranco Voice ID: [id number] Report ID: [id number]
[2018-02-25] MEDS ORDERED: ARFORMOTEROL TARTRATE 15 MCG/2 ML VIAL.NEB ONE (20:03)
[2018-02-25] MEDS: BENZONATATE 100 MG CAP PO PRN (20:44)
[2018-02-25] MEDS: DULERA 200/5 (MOMETASONE/FORMOTEROL) INHALER IH SCH (20:47)
[2018-02-26] MEDS: METHYLPREDNISOLONE 40 MG INJ IV SCH ×2 (01:00→10:15)
[2018-02-26] MEDS: IPRATROPIUM BROM 0.5MG/2.5ML NEB SCH ×3 (01:33→14:04)
[2018-02-26] MEDS: ALBUTEROL 2.5 MG/3 ML NEB SOL NEB PRN ×3 (01:33→14:04)
[2018-02-26 07:37] VITALS: O2SAT 95
[2018-02-26] MEDS: DULERA 200/5 (MOMETASONE/FORMOTEROL) INHALER IH SCH (09:00)
[2018-02-26] MEDS: AMLODIPINE 10 MG TAB PO SCH (10:13)
[2018-02-26] MEDS: LISINOPRIL 10 MG TAB PO SCH (10:14)
[2018-02-26] MEDS: levoFLOXacin 500 MG TAB PO SCH (10:15)
[2018-02-26] MEDS: ROFLUMILAST 500 MCG TABLET PO SCH (10:15)
[2018-02-26] MEDS: hydroCHLOROthiazide 12.5 MG CAP PO SCH (10:16)
[2018-02-26 10:21] VITALS: BP 167/89
[2018-02-26 10:41] VITALS: TEMP 97.6
--- NOTE | 2018-02-27 01:37 | DS ---
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 Admitting Diagnoses: 1.Chronic obstructive pulmonary disease with acute exacerbation. 2.Hypertension. Discharge Diagnoses: 1.Acute chronic obstructive pulmonary disease exacerbation. 2.Essential hypertension. 3.Overweight, body mass index 29.7. 4.Chronic respiratory failure secondary to chronic obstructive pulmonary disease. 5.Fibrotic lung disease. Hospital Course: The patient is a 67-year-old male with longstanding history of COPD, hypertension, does use oxygen at home as needed approximately 3 L. The patient comes in with shortness of breath. He was found to have acute COPD exacerbation. He was admitted to the hospital and was started on Du oNeb treatment and steroids. The patient's chest x-ray showed interstitial lung disease with no acut e cardiopulmonary process. Dr. Frank with Pulmonology was consulted due to the patient's longstan ding history of COPD, fibrotic lungs, and acute on chronic respiratory failure. The patient is requi ring oxygen throughout and was getting significantly dyspneic on exertion. Repeat chest x-ray was do ne that again did not show any acute findings, did show some fibrotic obstructive lung pattern. The patient does have some chronic rib fractures. However, the patient denied any significant pain. CT angio chest was done to rule out PE and was negative. The patient was started on IV steroids. His l asim-acting inhalers were also added to his regimen. The patient, of note, does not take any maintena nce long-acting inhalers due to financial reasons. Echocardiogram was also done, which showed normal EF 75%, thickened mitral annulus. The patient then improved. His blood cultures and influenza scre en remained negative. He was able to ambulate without significant dyspnea. His O2 saturations 100% on 3 L. The patient did use BiPAP as needed overnight. The patient was then cleared for discharge f rom Pulmonology standpoint. He was instructed to refrain from strenuous activity. Heart healthy t. Return to ER for worsening condition. Follow up with Dr. Frank in 1 to 2 weeks. Follow up [facility] primary care physician in 2 to 3 days. He was also to tow picker samples of Dulera from Dr. Frank 's office. Medications: As per medication reconciliation list. His blood pressure medication was adjusted and HCTZ was added to his lisinopril. He will finish off a short course of antibiotics. The patient is already on daily steroids and maintenance inhalers were also added to his regimen. Condition: Fair. Total time spent discharging the patient was 42 minutes. Physical Examination: General: Awake, alert, oriented, no acute distress. CV: S1, S2. No murmurs. Respiratory: Moving air well bilaterally. Abdomen: Soft, nontender, nondistended. Positive bowel sounds. Extremities: No clubbing, cyanosis, edema. Neuro: Nonfocal. SA/MODL Voice ID: [id number] Report ID: [id number]
== END 2018-02-26 16:04 | disposition home or self-care (01) | DRG 189 ==
LOC: ER 05:51 → ERHOLD 08:16 → 2ND 09:25
PROVIDERS: ADMIT Family Medicine; ATTEND Family Medicine
DX: J96.22 Acute and chronic respiratory failure with hypercapnia (principal); J44.1 Chronic obstructive pulmonary disease with (acute) exacerbation; I10 Essential (primary) hypertension; J84.10 Pulmonary fibrosis, unspecified
CPT/HCPCS: 36415; 71045; 71046; 71275; 80048; 80053; 80076; 81003; 82550; 82805; 83735; 83880; 84100; 84484; 85025; 85610; 87040; 87804; 90670; 93005; 93306; 94640; 94660; 94760; 96374; 96375; 97163; 99285; G0009; J1100; J1650; J1940; J2543; J2920; J2930; J3475; J7512; J7605; J7606; Q2035; Q9967

== ENCOUNTER 2018-02-27 06:30 | Inpatient (IN) | payer OTHER ==
[2018-02-27] MEDS ORDERED: predniSONE 20 MG TAB ONE (07:22)
[2018-02-27] MEDS ORDERED: IPRATROPIUM BROM 0.5MG/2.5ML ONE ×2 (07:22→14:00)
[2018-02-27] MEDS ORDERED: ALBUTEROL 2.5 MG/3 ML NEB SOL ONE ×2 (07:22→14:00)
[2018-02-27 07:32] LABS: Absolute Lymphocytes (CBC) 0.8 K/uL (0.7-4.9); Absolute Monocytes 1.5 K/uL (0.1-1.3); Absolute Neutrophil 13.4 K/uL (1.8-8.0); Basophils % 0.1 % (0-1.3); Hematocrit 47.3 % (39.6-49.0); Lymphocytes % 5.2 % (15.3-44.8); MCH 31.5 pg (27.0-35.0); MCV 93.4 fL (80-100); MPV 7.1 fL (7.6-11.3); Monocytes % 9.2 % (3.3-12.3); RBC Red Blood Cell Count 5.06 M/uL (4.33-5.43)
[2018-02-27 07:42] LABS: Magnesium 2.5 mg/dL (1.8-2.5); Potassium 4.2 mEq/L (3.6-5.0)
[2018-02-27 08:41] LABS: Arterial Blood Carboxyhemoglob 0.5 % (0-1.5); Blood Gas Oxyhemoglobin 97.4 % (94-97); Blood O2 Saturation 98.6 % (92-98.5)
--- NOTE | 2018-02-27 09:43 | ER ---
Nurse's Notes [facility] Name: Zane Dave Age: 67 yrs Sex: Male : 1950 Arrival Date: 02/27/2018 Time: 06:37 Bed 15 Private MD: Diagnosis: Acute and chronic respiratory failure;Lobar pneumonia, unspecified organism Presentation: 02/27 06:37 Presenting complaint: Patient states: he was discharged from the hospital yesterday aa1 with a COPD exacerbation and began having SOB again last night. EMS reports RA O2 sat of 94% and gave 1 A\T\A tx en route. Transition of care: patient was not received from another setting of care. Onset of symptoms was February 27, 2018. Care prior to arrival: Medication(s) given: Albuterol Neb x 1, Atrovent Neb x 1, Med neb given. 06:37 Method Of Arrival: EMS: [facility] aa1 06:37 Acuity: TABBY 3 aa1 Triage Assessment: 06:41 General: Appears in no apparent distress. comfortable, Behavior is calm, cooperative, aa1 appropriate for age. Pain: Denies pain. 07:09 Respiratory: Reports shortness of breath at rest on exertion labored breathing Onset: hj The symptoms/episode began/occurred the patient has mild shortness of breath. Historical: - Allergies: 06:41 No Known Allergies; aa1 - Home Meds: 06:41 albuterol sulfate 2.5 mg /3 mL (0.083 %) Inhl nebu 3 mL 3 times per day [Active]; aa1 prednisone 5 mg Oral tab once daily [Active]; Lisinopril Oral [Active]; 07:10 amlodipine 10 mg tab 1 tab once daily [Active]; ProAir HFA inhalation [Active]; hj - PMHx: 06:41 Asthma; COPD; Hypertension; aa1 - PSHx: 06:41 None; aa1 - Immunization history:: Flu vaccine is not up to date. - Social history:: Smoking status: Patient/guardian denies using tobacco. Screenin:09 Abuse screen: Denies threats or abuse. Denies injuries from another. Nutritional hj screening: No deficits noted. Tuberculosis screening: No symptoms or risk factors identified. Fall Risk None identified. Assessment: 07:08 General: Appears in no apparent distress. uncomfortable, Behavior is calm, cooperative, hj appropriate for age. Pain: Denies pain. Neuro: Level of Consciousness is awake, alert, obeys commands, Oriented to person, place, time, situation, Appropriate for age. Cardiovascular: Capillary refill < 3 seconds Patient's skin is warm and dry. Rhythm is regular. Respiratory: Airway is patent Respiratory effort is labored, Respiratory pattern is regular, tachypnea Breath sounds with wheezes bilaterally. GI: No signs and/or symptoms were reported involving the gastrointestinal system. : No signs and/or symptoms were reported regarding the genitourinary system. EENT: No signs and/or symptoms were reported regarding the EENT system. Derm: No signs and/or symptoms reported regarding the dermatologic system. Musculoskeletal: No signs and/or symptoms reported regarding the musculoskeletal system. 07:26 Reassessment: bipap; rate-12 at 40%;. hj 08:45 Reassessment: Patient and/or family updated on plan of care and expected duration. Pain hj level reassessed. Patient is alert, oriented x 3, equal unlabored respirations, skin warm/dry/pink. bipap setting- 12 at 30%;. 09:45 Reassessment: Patient and/or family updated on plan of care and expected duration. Pain hj level reassessed. Patient is alert, oriented x 3, equal unlabored respirations, skin warm/dry/pink. 10:52 Reassessment: Patient and/or family updated on plan of care and expected duration. Pain hj level reassessed. Patient is alert, oriented x 3, equal unlabored respirations, skin warm/dry/pink. Patient states symptoms have improved. Vital Signs: 06:41 BP 156 / 87; Pulse 89; Resp 22; Temp 98.2; Pulse Ox 95% on R/A; Weight 102.06 kg; aa1 Height 6 ft. 1 in. (185.42 cm); Pain 0/10; 07:25 BP 141 / 71; Pulse 86; Resp 18; Pulse Ox 100% on Nebulizer Mask; hj 08:45 BP 141 / 68; Pulse 77; Resp 18; Pulse Ox 100% on BiPAP; hj 10:52 BP 140 / 70; Pulse 71; Resp 18; Pulse Ox 98% on BiPAP; hj 06:41 Body Mass Index 29.68 (102.06 kg, 185.42 cm) aa1 ED Course: 06:37 Patient arrived in ED. aa1 06:39 Carlitos Hernandez MD is Attending Physician. gs 06:40 Triage completed. aa1 06:41 Arm band placed on right wrist. Patient placed in an exam room, on a stretcher. aa1 07:00 Milo Seals, RN is Primary Nurse. hj 07:04 XRAY Chest (1 view) In Process Unspecified. EDMS 07:10 Patient has correct armband on for positive identification. Placed in gown. Bed in low hj position. Call light in reach. Side rails up X 1. 07:12 Inserted saline lock: 20 gauge in left antecubital area, using aseptic technique. Blood hj collected. 07:12 Initial lab(s) drawn, sent to lab. First set of blood cultures drawn VIVIANE Olsen. hj 08:32 BIPAP Sent. hj 09:41 Papo Guerrero MD is Hospitalizing Provider. gs 11:48 No provider procedures requiring assistance completed. Patient admitted, IV remains in hj place. intact. Administered Medications: 07:00 Drug: predniSONE 40 mg Route: PO; hj 07:11 Follow up: Response: No adverse reaction hj 07:00 Drug: Albuterol - atroVENT (3:1) (2.5 mg - 0.5 mg) 3 ml Route: Nebulizer; hj 07:11 Follow up: Response: No adverse reaction; Wheezing diminished hj 10:30 Drug: Zosyn 3.375 grams Route: IVPB; Infused Over: 60 mins; Site: left antecubital; hj 10:30 Follow up: IV Status: Completed infusion hj Outcome: 09:43 Decision to Hospitalize by Provider. gs 11:48 Admitted to Tele accompanied by nurse, via stretcher, room 405, with oxygen, with hj chart, Report called to GERARDO Orr 11:48 Condition: stable 11:48 Instructed on the need for admit, Demonstrated understanding of instructions. 11:49 Patient left the ED. hj Signatures: Dispatcher [employer] Lisa Barnes RN RN aa1 Milo Seals RN RN Carlitos Hernandez MD MD gs
--- NOTE | 2018-02-27 09:43 | EDPHYS ---
Physician Documentation [facility] Name: Zane Dave Age: 67 yrs Sex: Male : 1950 Arrival Date: 02/27/2018 Time: 06:37 Bed 15 Private MD: ED Physician Carlitos Hernandez HPI: 02/27 09:12 This 67 yrs old Male presents to ER via EMS with complaints of Shortness Of gs Breath. 09:12 The patient has shortness of breath at rest. Onset: The symptoms/episode began/occurred gs 2 day(s) ago. Duration: The symptoms are continuous, and are unchanged since they started. The patient's shortness of breath is aggravated by coughing, exertion. Associated signs and symptoms: Pertinent negatives: fever. Severity of symptoms: At their worst the symptoms were severe in the emergency department the symptoms are unchanged. The patient has experienced similar episodes in the past, chronically. The patient has been recently been admitted at [facility], was discharged last week. Historical: - Allergies: 06:41 No Known Allergies; aa1 - Home Meds: 06:41 albuterol sulfate 2.5 mg /3 mL (0.083 %) Inhl nebu 3 mL 3 times per day [Active]; aa1 prednisone 5 mg Oral tab once daily [Active]; Lisinopril Oral [Active]; 07:10 amlodipine 10 mg tab 1 tab once daily [Active]; ProAir HFA inhalation [Active]; hj - PMHx: 06:41 Asthma; COPD; Hypertension; aa1 - PSHx: 06:41 None; aa1 - Immunization history:: Flu vaccine is not up to date. - Social history:: Smoking status: Patient/guardian denies using tobacco. ROS: 09:34 All other systems are negative. gs Exam: 09:34 Head/Face: Normocephalic, atraumatic. Eyes: Pupils equal round and reactive to light, gs extra-ocular motions intact. Lids and lashes normal. Conjunctiva and sclera are non-icteric and not injected. Cornea within normal limits. Periorbital areas with no swelling, redness, or edema. ENT: Nares patent. No nasal discharge, no septal abnormalities noted. Tympanic membranes are normal and external auditory canals are clear. Oropharynx with no redness, swelling, or masses, exudates, or evidence of obstruction, uvula midline. Mucous membranes moist. Neck: Trachea midline, no thyromegaly or masses palpated, and no cervical lymphadenopathy. Supple, full range of motion without nuchal rigidity, or vertebral point tenderness. No Meningismus. Chest/axilla: Normal chest wall appearance and motion. Nontender with no deformity. No lesions are appreciated. 09:34 Abdomen/GI: Soft, non-tender, with normal bowel sounds. No distension or tympany. No guarding or rebound. No evidence of tenderness throughout. Back: No spinal tenderness. No costovertebral tenderness. Full range of motion. Skin: Warm, dry with normal turgor. Normal color with no rashes, no lesions, and no evidence of cellulitis. MS/ Extremity: Pulses equal, no cyanosis. Neurovascular intact. Full, normal range of motion. Neuro: Awake and alert, GCS 15, oriented to person, place, time, and situation. Cranial nerves II-XII grossly intact. Motor strength 5/5 in all extremities. Sensory grossly intact. Cerebellar exam normal. Normal gait. 09:34 Constitutional: The patient appears alert, awake, in obvious distress, severely distressed. 09:34 Cardiovascular: Rate: normal, Rhythm: regular, Heart sounds: normal. 09:34 ECG was reviewed by the Attending Physician. 09:34 Respiratory: severe repiratory distress is noted, Respirations: labored breathing, accessory muscle usage, Breath sounds: rhonchi, that are severe, are heard diffusely. Vital Signs: 06:41 BP 156 / 87; Pulse 89; Resp 22; Temp 98.2; Pulse Ox 95% on R/A; Weight 102.06 kg; aa1 Height 6 ft. 1 in. (185.42 cm); Pain 0/10; 07:25 BP 141 / 71; Pulse 86; Resp 18; Pulse Ox 100% on Nebulizer Mask; hj 08:45 BP 141 / 68; Pulse 77; Resp 18; Pulse Ox 100% on BiPAP; hj 10:52 BP 140 / 70; Pulse 71; Resp 18; Pulse Ox 98% on BiPAP; hj 06:41 Body Mass Index 29.68 (102.06 kg, 185.42 cm) aa1 MDM: 06:45 Patient medically screened. 09:34 Differential diagnosis: Bronchitis CHF exacerbation, Chronic Obstructive Pulmonary gs Disease Myocardial Infarction pneumonia. Data reviewed: vital signs, nurses notes. 02/27 06:46 Order name: Basic Metabolic Panel; Complete Time: 08:26 02/27 06:46 Order name: BNP; Complete Time: 08:26 02/27 06:46 Order name: CBC with Diff; Complete Time: 11:22 02/27 06:46 Order name: Magnesium; Complete Time: 08:26 02/27 06:46 Order name: Troponin (emerg Dept Use Only); Complete Time: 08:26 02/27 07:35 Order name: CBC Smear Scan; Complete Time: 11:22 EDMS 02/27 06:46 Order name: XRAY Chest (1 view); Complete Time: 11:22 02/27 06:46 Order name: EKG; Complete Time: 06:47 02/27 06:46 Order name: BIPAP 02/27 08:26 Order name: ABG; Complete Time: 09:28 02/27 09:43 Order name: Blood Culture* 02/27 06:46 Order name: Cardiac monitoring; Complete Time: 07:00 02/27 06:46 Order name: EKG - Nurse/Tech; Complete Time: 06:58 02/27 06:46 Order name: IV Saline Lock; Complete Time: 07:12 02/27 06:46 Order name: Labs collected and sent; Complete Time: 07:12 02/27 06:46 Order name: O2 Per Protocol; Complete Time: 07:01 02/27 06:46 Order name: O2 Sat Monitoring; Complete Time: 07:01 02/27 10:58 Order name: Diet Regular; Complete Time: 10:59 EC:34 Rate is 85 beats/min. Rhythm is regular. SC interval is normal. QRS interval is gs prolonged. No Q waves. Clinical impression: Abnormal EKG without significant change. Interpreted by me. Administered Medications: 07:00 Drug: predniSONE 40 mg Route: PO; hj 07:11 Follow up: Response: No adverse reaction 07:00 Drug: Albuterol - atroVENT (3:1) (2.5 mg - 0.5 mg) 3 ml Route: Nebulizer; hj 07:11 Follow up: Response: No adverse reaction; Wheezing diminished hj 10:30 Drug: Zosyn 3.375 grams Route: IVPB; Infused Over: 60 mins; Site: left antecubital; 10:30 Follow up: IV Status: Completed infusion Disposition: :34 Critical Care:. gs Disposition: 02/27/18 09:43 Hospitalization ordered by Papo Guerrero for Inpatient Admission. Preliminary diagnosis are Acute and chronic respiratory failure, Lobar pneumonia, unspecified organism. - Bed requested for Telemetry/MedSurg (Inpatient). - Status is Inpatient Admission. - Condition is Stable. - Problem is new. - Symptoms have improved. UTI on Admission? No Critical care time excluding procedures: Critical care time: Bedside Care: 10 minutes, Consultation: 10 minutes, Family gs Intervention: 10 minutes. Total time: 30 minutes Signatures: Dispatcher [employer] Lisa Barnes, GERARDO RN Sulema Dunlap ms, Henry, RN RN Carlitos Hernandez MD MD
[2018-02-27 10:21] LABS: Blood Morphology Comment NOT SEEN (NOT SEEN); Platelet Estimate ADEQ; Urine White Blood Cell Casts OK
[2018-02-27] MEDS ORDERED: PIPER/TAZO/NS 3.375gm 3.375 GM/100 ML BAG ONE (10:43)
--- NOTE | 2018-02-27 11:04 | RAD REPORT ---
EXAM DESCRIPTION: RAD - Chest Single View - 02/27/2018 7:04 am CLINICAL HISTORY: Shortness of breath, COPD. COMPARISON: 02/22/2018, 02/21/2018 FINDINGS: Portable technique limits examination quality. The lungs are mildly emphysematous but grossly clear. Pleural thickening is suspected both costophren ic angles. The heart is normal in size. No displaced fractures. IMPRESSION: Mild COPD.
[2018-02-27 14:04] VITALS: BMI 29.7
[2018-02-27] MEDS ORDERED: BENZONATATE 100 MG CAP PO PRN (15:15)
[2018-02-27] MEDS: ALBUTEROL 2.5 MG/3 ML NEB SOL IH SCH ×2 (15:30→19:38)
[2018-02-27] MEDS ORDERED: ZOLPIDEM TARTRATE 5 MG TABLET PO PRN (15:33)
[2018-02-27] MEDS ORDERED: ACETAMINOPHEN 500 MG TAB PO PRN (15:33)
[2018-02-27] MEDS ORDERED: ONDANSETRON 4 MG/2 ML VIAL IV PRN (15:33)
[2018-02-27] MEDS: levoFLOXacin 500 MG TAB PO SCH (17:39)
[2018-02-27] MEDS: METHYLPREDNISOLONE 125 MG INJ IV SCH ×2 (17:39→23:45)
[2018-02-27] MEDS: ENOXAPARIN 40 MG/0.4 ML SQ SCH (17:39)
[2018-02-27] MEDS ORDERED: INFLUENZA VACCINE (for 3y+) 0.5 ML DOSE IMVAC ONE (18:00)
[2018-02-27] MEDS ORDERED: PNEUMOCOCCAL VACCINE 0.5 ML IMVAC ONE (18:00)
[2018-02-27] MEDS: IPRATROPIUM BROM 0.5MG/2.5ML IH PRN (18:15)
[2018-02-27] MEDS: DULERA 200/5 (MOMETASONE/FORMOTEROL) INHALER IH SCH (21:00)
--- NOTE | 2018-02-28 02:16 | HP ---
Date of Admission: 02/27/2018 Reason For Admission: Severe shortness of breath. History Of Present Illness: This is a 67-year-old gentleman with history of COPD, hypertension, who presented initially to the emergency room last week on the 21 of February with progressive shortness o f breath and found to have COPD exacerbation, was started on steroid and antibiotic. Dr. Zac arroyo consulted. The patient was discharged home on the on home O2 and antibiotic and low dose of p rednisone, but he came back early this morning stating that he is unable to catch his breath even on 4 L of oxygen, was placed on BiPAP in the emergency room. X-ray done showed mild COPD, but no new si gns of pneumonia. The patient was admitted for further treatment. Currently, he is lying in bed. H e looks comfortable, but he is on 4 L of oxygen. He denies any chest pain. No nausea. No vomiting. Review of Systems: Otherwise as below. Past Medical History: Significant for COPD, asthma, hypertension. Past Surgical History: Significant for bilateral hand surgery and tonsillectomy. Allergies: NONE. Social History: The patient is . His is disabled. He has history of tobacco abuse and alcohol abuse. No drugs. Family History: Significant for mother who had dementia and at age 92. Father passed when he w as 8-year-old from COPD. Brother at age 71-year-old from lung cancer and brain cancer. Sister also with history of brain cancer. Review of Systems: Denies any fever, chills, night sweats, dizziness, lightheaded, headache, blurred vision. He has a c ough. He has shortness of breath. There is also clear sputum. No chest pain, but there is orthopne a and dyspnea on exertion. He has no lower extremity edema. No nausea. No vomiting. No abdominal pain, change in bowel movement, diarrhea, constipation, dysuria, frequency, urgency, or hematuria. T here is no history of depression, anxiety, seizure, or stroke. Physical Examination: Vital Signs: Blood pressure 148/65, respiratory rate 20, pulse 91, temperature 97.1. He is on 4 L. His O2 saturation is 93%. General: He is alert and oriented x3. Does not look in any distress. NECK: Supple. No JVD. No carotid bruits. HEENT: Atraumatic, normocephalic. PERRLA. Oral mucosa is moist. Chest: With expiratory wheezing. Heart: Regular rate and rhythm. S1, S2 normal. No gallop or murmur. Abdomen: Soft, nontender. No masses. No hepatosplenomegaly. Positive bowel sounds. Extremities: No clubbing, cyanosis, or edema. No calf tenderness. Neurologic: Grossly intact. Cranial nerve exam 2 through 12 are intact. Normal sensation. Normal reflexes. Normal muscle strength. Laboratory Data: Labs done in the emergency room today showed CBC was normal, except white blood dionicio ls of 15.7, platelet of 326. ABG showed pH of 7.4, pO2 of 128, pCO2 of 49. BMP was normal, except f or BUN of 45, creatinine 1.29, GFR 46, glucose of 146. Assessment And Plan: A 67-year-old gentleman with the history of tobacco abuse, chronic obstructive pulmonary disease, who presented after discharge 1 day from the hospital with again progressive short ness of breath. 1.Acute on chronic chronic obstructive pulmonary disease. We will admit to the hospital. Continue oxygen. Started on IV Solu-Medrol and continue antibiotic with Levaquin. We will obtain pulmonary c onsult as the patient have severe COPD and his medication needs to be optimized. I will resume all h is home inhalers. 2.Leukocytosis secondary to steroid. 3.Tobacco abuse. Advised to quit. 4.Hypertension. Resume his home medications. 5.DVT prophylaxis with Lovenox. SORIN Voice ID: [id number]
[2018-02-28] MEDS: IPRATROPIUM BROM 0.5MG/2.5ML IH PRN ×2 (05:12→11:53)
[2018-02-28] MEDS: METHYLPREDNISOLONE 125 MG INJ IV SCH ×3 (05:59→17:32)
[2018-02-28 06:23] LABS: Absolute Lymphocytes (CBC) 0.6 K/uL (0.7-4.9); Absolute Monocytes 0.4 K/uL (0.1-1.3); Absolute Neutrophil 10.7 K/uL (1.8-8.0); Basophils % 0.3 % (0-1.3); Hematocrit 45.4 % (39.6-49.0); Lymphocytes % 4.8 % (15.3-44.8); MCH 31.9 pg (27.0-35.0); MCV 93.1 fL (80-100); MPV 7.3 fL (7.6-11.3); RBC Red Blood Cell Count 4.88 M/uL (4.33-5.43)
[2018-02-28 06:36] LABS: Albumin 4.1 g/dL (3.2-5.5); Bilirubin Total 0.8 mg/dL (0.3-1.2); Potassium 4.8 mEq/L (3.6-5.0); Protein, Total 6.8 g/dL (6.0-8.3)
[2018-02-28 07:38] LABS: Urine Appearance CLEAR; Urine Bilirubin NEGATIVE (NEG); Urine Blood NEGATIVE (NEG); Urine Color YELLOW; Urine Glucose TRACE (NEG); Urine Protein NEGATIVE (NEG); Urine Urobilinogen 0.2 mg/dL (0.2-1.0)
[2018-02-28 07:52] LABS: Urine Microscopic Reflex NO UMIC
[2018-02-28] MEDS: ALBUTEROL 2.5 MG/3 ML NEB SOL IH SCH ×2 (07:52→11:53)
[2018-02-28] MEDS: DULERA 200/5 (MOMETASONE/FORMOTEROL) INHALER IH SCH ×2 (09:00→21:00)
[2018-02-28] MEDS ORDERED: LISINOPRIL 10 MG TAB PO SCH (09:00)
[2018-02-28] MEDS ORDERED: hydroCHLOROthiazide 12.5 MG CAP PO SCH (09:00)
[2018-02-28] MEDS ORDERED: HOME MED 1 EA UNK (Lisinopril/Hydrochlorothiazide [Lisinopril-Hctz 10-12.5 Mg Tab] 1 EACH) PO SCH (09:00)
[2018-02-28] MEDS: ROFLUMILAST 500 MCG TABLET PO SCH (10:10)
[2018-02-28] MEDS: AMLODIPINE 10 MG TAB PO SCH (10:11)
[2018-02-28] MEDS: ALBUTEROL 2.5 MG/3 ML NEB SOL NEB SCH ×4 (12:00→23:25)
[2018-02-28] MEDS: IPRATROPIUM BROM 0.5MG/2.5ML NEB SCH ×4 (12:00→23:25)
[2018-02-28] MEDS ORDERED: HYDRALAZINE HCL 20 MG/ML VIAL IV PRN (12:14)
--- NOTE | 2018-02-28 12:49 | EKG ---
Test Date: 2018-02-27 Test Time: 06:56:03 Certified Welding Inspector: FARHAN MEASUREMENT RESULTS: Intervals: Rate: 85 MO: 152 QRSD: 146 QT: 406 QTc: 483 [place]: P: 0 MO: 152 QRS: -23 T: 9 INTERPRETIVE STATEMENTS: Normal sinus rhythm Right bundle branch block Abnormal ECG Compared to ECG 02/21/2018 05:55:36 no significant change from previous ECG Electronically Signed On 02-28-18 12:49:21 CDT by Aryan Isidro
[2018-02-28] MEDS: levoFLOXacin 500 MG TAB PO SCH (17:32)
[2018-02-28] MEDS: ENOXAPARIN 40 MG/0.4 ML SQ SCH (17:32)
[2018-02-28] MEDS: LISINOPRIL 10 MG TAB PO SCH (21:39)
[2018-03-01] MEDS: METHYLPREDNISOLONE 125 MG INJ IV SCH ×4 (01:00→21:30)
[2018-03-01] MEDS: IPRATROPIUM BROM 0.5MG/2.5ML NEB SCH ×5 (01:10→12:10)
[2018-03-01] MEDS: ALBUTEROL 2.5 MG/3 ML NEB SOL NEB SCH ×5 (01:10→12:10)
--- NOTE | 2018-03-01 08:30 | P.PN ---
Subjective Date of Service: 03/01/18 Chief Complaint: COPD exacerbation Patient was recently admitted discharged came back the following day he has started complaining of worsening dyspnea still is very short of breath on mild exertion there was no evidence of pulmonary embolism he had a normal echocardiogram Review of Systems Respiratory: Cough, Shortness of Breath Physical Examination - Vital Signs Temperature: 97.8 F Blood Pressure: 146/64 Pulse: 72 Respirations: 19 Pulse Ox (%): 98 - Physical Exam General: Alert, Moderate distress Neck: Supple Respiratory: Expiratory wheezes Cardiovascular: No edema, Regular rate/rhythm Assessment & Plan - Problems (Diagnosis) (1) COPD with acute exacerbation Onset Date: 04/16/16 Current Visit: No Status: Acute Plan: Patient is 67 years of age 3 hospitalization for COPD exacerbation no evidence of thromboemboli normal left ventricular function continue with bronchodilators steroids he is on maximal therapy patient is on levofloxacin sputum cultures had a trial of Bactrim
[2018-03-01] MEDS: SPIRONOLACTONE 25 MG TABLET PO SCH ×2 (09:05→21:29)
[2018-03-01] MEDS: hydroCHLOROthiazide 25 MG TAB PO SCH (09:05)
[2018-03-01] MEDS: AMLODIPINE 10 MG TAB PO SCH (09:06)
[2018-03-01] MEDS: ROFLUMILAST 500 MCG TABLET PO SCH (09:06)
[2018-03-01] MEDS: LISINOPRIL 10 MG TAB PO SCH ×2 (09:06→21:30)
[2018-03-01] MEDS: SMZ./TMP. 800/160 MG TABLET PO SCH ×2 (09:06→21:29)
--- NOTE | 2018-03-01 10:33 | PN ---
Subjective: Currently, the patient is sitting at the bedside. He did look comfortable, but he state d that he is desaturating with minimal exertion. He continued to have cough. No chest pain or abdom inal pain. No nausea or vomiting. He is getting ready to have a breathing treatment. Objective: Vital Signs: Currently, blood pressure 158/74, respiratory rate 22, pulse 83, and temper ature 97. He is saturating 93 on 4 L at rest, but he desaturates with an exertion. General: He is alert and oriented x3. Does not look in any distress. HEENT: Atraumatic and normocephalic. PERRLA. Oral mucosa is moist. Neck: Supple. No JVP. Chest: Clear to auscultation with expiratory wheezing. Heart: Regular rate and rhythm. S1 and S2 normal. No gallop. Abdomen: Soft, nontender. No masses. Obese. Positive bowel sounds. Extremities: No clubbing, cyanosis, or edema. No calf tenderness. Neurologic: Deferred. Laboratory Data: Today showed CBC within normal, except for white blood cells 11.7, down from 15.7. Chemistry within normal, except for BUN of 33, down from 45 and glucose 163. Assessment And Plan: 1.Severe [id number] chronic obstructive pulmonary disease exacerbation. We will continue the patient on high dose steroid, nebulizer and antibiotic. Pulmonary consult requested, pending Dr. Bouchra andres further recommendations. The patient stated that he does not want to go home unless he is sure he will be able to be functional as his O2 saturation requirement is very high with any exertion. 2.Leukocytosis, improving secondary to steroid. 3.Tobacco abuse. Advised to quit. 4.Hypertension, not well controlled. He is on hydrochlorothiazide and amlodipine. I will add hydra lazine 10 mg every 6 hours. Increase hydrochlorothiazide to 25 instead of 12.5. 5.Deep venous thrombosis prophylaxis. On Lovenox. WILLIAM/SHE Voice ID: [id number] Report ID: [id number]
--- NOTE | 2018-03-01 14:10 | P.PN ---
Subjective Date of Service: 03/01/18 Primary Care Provider: Dr. Blackman; Pulmonary-Dr. Frank Chief Complaint: COPD exacerbation Subjective: Improving Physical Examination - Vital Signs Temperature: 97.8 F Blood Pressure: 146/64 Pulse: 72 Respirations: 19 Pulse Ox (%): 98 - Physical Exam General: Alert, In no apparent distress, Oriented x3, Cooperative HEENT: Atraumatic Neck: Supple Respiratory: Expiratory wheezes (Bilateral) Cardiovascular: Normal pulses, Regular rate/rhythm Gastrointestinal: Normal bowel sounds, Soft and benign, Non-distended, No tenderness, No masses, No rebound, No guarding Musculoskeletal: No erythema, No tenderness, No warmth Integumentary: No tenderness/swelling, No erythema, No warmth, No cyanosis Neurological: Normal speech, Normal strength at 5/5 x4 extr, Normal tone, Normal affect Lymphatics: No axilla or inguinal lymphadenopathy - Studies Medications List Reviewed: Yes Assessment & Plan - Problems (Diagnosis) (1) COPD (chronic obstructive pulmonary disease) Current Visit: Yes Status: Acute Plan: Patient with COPD exacerbation. Will continue with COPD treatment. Will discuss with pulmonology. Patient with home oxygen and chronic steroids. Anticipate discharge within the next 1-2 days. Qualifiers: COPD type: COPD with acute exacerbation Qualified Code(s): J44.1 - Chronic obstructive pulmonary disease with (acute) exacerbation (2) On home oxygen therapy Current Visit: Yes Status: Chronic Plan: Continue as above (3) Chronic use of steroids Current Visit: Yes Status: Chronic Plan: Continue with COPD treatment. (4) GERD (gastroesophageal reflux disease) Current Visit: Yes Status: Chronic Plan: Continue with PPI Qualifiers: Esophagitis presence: esophagitis presence not specified Qualified Code(s) : K21.9 - Gastro-esophageal reflux disease without esophagitis (5) Tobacco abuse Onset Date: 03/01/18 Current Visit: Yes Status: Chronic Plan: Cessation addressed. (6) Hypertension Onset Date: 04/16/16 Current Visit: No Status: Chronic Plan: Continue with medication. Qualifiers: Hypertension type: essential hypertension Qualified Code(s): I10 - Essential (primary) hypertension Discharge Plan: Home Time Spent Managing Pts Care (In Minutes): 55
[2018-03-01] MEDS: ALBUTEROL 2.5 MG/3 ML NEB SOL NEB PRN (15:35)
[2018-03-01] MEDS: IPRATROPIUM BROM 0.5MG/2.5ML NEB PRN (15:35)
[2018-03-01 16:41] LABS: Arterial Blood Carboxyhemoglob 1.2 % (0-1.5); Blood Gas Oxyhemoglobin 90.7 % (94-97); Blood O2 Saturation 93.4 % (92-98.5)
[2018-03-01] MEDS: levoFLOXacin 500 MG TAB PO SCH (18:34)
[2018-03-01] MEDS: ENOXAPARIN 40 MG/0.4 ML SQ SCH (18:34)
[2018-03-01] MEDS: ARFORMOTEROL TARTRATE 15 MCG/2 ML VIAL.NEB NEB SCH (20:15)
[2018-03-02 04:59] LABS: Absolute Lymphocytes (CBC) 0.7 K/uL (0.7-4.9); Absolute Monocytes 0.6 K/uL (0.1-1.3); Absolute Neutrophil 14.9 K/uL (1.8-8.0); Basophils % 0.3 % (0-1.3); Hematocrit 46.1 % (39.6-49.0); MCH 31.5 pg (27.0-35.0); MCV 92.4 fL (80-100); MPV 7.7 fL (7.6-11.3); Magnesium 2.2 mg/dL (1.8-2.5); Monocytes % 3.9 % (3.3-12.3); Potassium 3.9 mEq/L (3.6-5.0); RBC Red Blood Cell Count 4.99 M/uL (4.33-5.43)
[2018-03-02] MEDS ORDERED: POTASSIUM CL SA 10 MEQ TAB PO ONE (05:17)
[2018-03-02 05:22] LABS: Blood Morphology Comment NOT SEEN (NOT SEEN); Platelet Estimate ADEQ; Urine White Blood Cell Casts OK
[2018-03-02] MEDS: ARFORMOTEROL TARTRATE 15 MCG/2 ML VIAL.NEB NEB SCH (09:08)
[2018-03-02] MEDS: IPRATROPIUM BROM 0.5MG/2.5ML NEB PRN (09:08)
[2018-03-02] MEDS: ALBUTEROL 2.5 MG/3 ML NEB SOL NEB PRN (09:08)
--- NOTE | 2018-03-02 09:24 | RAD REPORT ---
EXAM DESCRIPTION: Lola Akhtar And Ella (2 Views)03/02/2018 7:32 am CLINICAL HISTORY: Cough COMPARISON: January 2018 FINDINGS: The lungs are hyperaerated. The lungs appear clear of acute infiltrate. The heart is normal size IMPRESSION: No acute abnormalities displayed
[2018-03-02] MEDS: ROFLUMILAST 500 MCG TABLET PO SCH (10:06)
[2018-03-02] MEDS: hydroCHLOROthiazide 25 MG TAB PO SCH (10:06)
[2018-03-02] MEDS: LISINOPRIL 10 MG TAB PO SCH (10:07)
[2018-03-02] MEDS: AMLODIPINE 10 MG TAB PO SCH (10:07)
[2018-03-02] MEDS: METHYLPREDNISOLONE 125 MG INJ IV SCH ×2 (10:08→13:58)
[2018-03-02 13:06] VITALS: O2SAT 94
[2018-03-02 14:10] VITALS: BP 143/88; TEMP 97.6
--- NOTE | 2018-03-02 17:12 | P.DS ---
Admission Date: 02/27/18 Discharge Date: 03/02/18 Primary Care Provider: Dr. Blackman; Pulmonary-Dr. Frank Disposition: ROUTINE DISCHARGE Discharge Condition: GOOD Reason for Admission: COPD exacerbation - Problems (1) COPD (chronic obstructive pulmonary disease) Status: Acute Qualifiers: COPD type: COPD with acute exacerbation Qualified Code(s): J44.1 - Chronic obstructive pulmonary disease with (acute) exacerbation (2) On home oxygen therapy Status: Chronic (3) Chronic use of steroids Status: Chronic (4) GERD (gastroesophageal reflux disease) Status: Chronic Qualifiers: Esophagitis presence: esophagitis presence not specified Qualified Code(s) : K21.9 - Gastro-esophageal reflux disease without esophagitis (5) Tobacco abuse Onset Date: 03/01/18 Status: Chronic (6) Hypertension Onset Date: 04/16/16 Status: Chronic Qualifiers: Hypertension type: essential hypertension Qualified Code(s): I10 - Essential (primary) hypertension Brief History of Present Illness: 67-year-old male presented emergency room with shortness of breath. Patient with COPD exacerbation. Patient was admitted for further evaluation and treatment. Hospital Course: Patient presented with shortness of breath secondary to COPD exacerbation. Patient was evaluated by pulmonology. Patient has history of COPD requiring home oxygen and chronic steroids. Patient is not been compliant with his regimen. Compliance was addressed in detail. At discharge he will continue with prednisone 20 mg 1 pill twice daily for 5 days then 1 pill once daily for 5 days. Then the patient may go back to his regimen of prednisone 10 mg daily. Patient will maintain oxygen saturations above 90%. Patient will need to limit his activities at home. Compliance with his medications for COPD with will need to be enforced. Patient will continue with Breo 1 puff daily, albuterol nebulized treatments 1 unit dose 3 times a day as needed for shortness of breath. New medication Daliresp 1 pill daily will be added. Patient will also go home on antibiotic therapy-Levaquin 500 mg daily for 7 days. Recommendation is for the patient to follow up with pulmonology in 1 week to follow up this hospitalization. Patient has hypertension. Medications were adjusted during his stay. Patient will continue with Norvasc 10 mg daily. Lisinopril has been increased to 10 mg 1 pill twice daily. Hydrochlorothiazide 25 mg 1 pill daily has been added. Recommendation is to maintain blood pressures less 150/80. Further adjustment can be done by his PCP. Tobacco cessation education will be provided. Patient may have underlying GERD. Patient will continue with Protonix 40 mg 1 pill once daily. Recommendation is to recheck lab-BMP and repeat chest x-ray in 4 weeks to monitor his progress. Vital Signs/Physical Exam: Temp Pulse Resp BP Pulse Ox 97.6 F 88 20 143/88 H 94 03/02/18 12:00 03/02/18 12:00 03/02/18 12:00 03/02/18 12:00 03/02/18 12:00 General: Alert, In no apparent distress, Oriented x3, Cooperative HEENT: Atraumatic Neck: Supple Respiratory: Clear to auscultation bilaterally, Normal air movement Cardiovascular: Normal pulses, Regular rate/rhythm Gastrointestinal: Normal bowel sounds, Soft and benign, Non-distended Musculoskeletal: No erythema, No tenderness, No warmth Integumentary: No tenderness/swelling, No erythema, No warmth, No cyanosis Neurological: Normal speech, Normal strength at 5/5 x4 extr, Normal tone, Normal affect Lymphatics: No axilla or inguinal lymphadenopathy Laboratory Data at Discharge: WBC 16.2 K/uL (4.3-10.9) H D 03/02/18 03:45 Hgb 15.7 g/dL (13.6-17.9) 03/02/18 03:45 Hct 46.1 % (39.6-49.0) 03/02/18 03:45 Plt Count 292 K/uL (152-406) 03/02/18 03:45 Sodium 133 mEq/L (135-145) L 03/02/18 03:45 Potassium 3.9 mEq/L (3.6-5.0) 03/02/18 03:45 BUN 37 mg/dL (6-20) H 03/02/18 03:45 Creatinine 1.26 mg/dL (0.61-1.24) H 03/02/18 03:45 Glucose 174 mg/dL (65-120) H 03/02/18 03:45 Magnesium 2.2 mg/dL (1.8-2.5) 03/02/18 03:45 Total Bilirubin 0.8 mg/dL (0.3-1.2) 02/28/18 05:38 AST 29 IU/L (10-42) 02/28/18 05:38 ALT 39 IU/L (10-60) 02/28/18 05:38 Alkaline Phosphatase 62 IU/L (42-121) 02/28/18 05:38 B-Natriuretic Peptide 28 pg/ml (<=100) 02/27/18 07:10 Home Medications: Albuterol Neb [Proventil 0.083% Neb Soln] 2.5 mg IH Q4H PRN 02/27/18 Amlodipine Besylate 10 mg PO DAILY 02/27/18 Prednisone 20 mg PO DAILY 02/27/18 Fluticasone/Vilanterol [Breo Ellipta 200-25 Mcg INH] 1 each IH DAILY #1 blst.w.dev 03/02/18 Hydrochlorothiazide [Hydrodiuril*] 25 mg PO DAILY #30 tab 03/02/18 Levofloxacin [Levaquin*] 500 mg PO DAILY 5 PM #7 tab 03/02/18 Lisinopril [Prinivil*] 10 mg PO BID #60 tab 03/02/18 Pantoprazole [Protonix Tab] 40 mg PO DAILY #30 tab 03/02/18 Prednisone [Deltasone] 20 mg PO SEECOM #15 tab 03/02/18 Roflumilast [Daliresp*] 500 mcg PO DAILY #30 tablet 03/02/18 New Medications: Fluticasone/Vilanterol [Breo Ellipta 200-25 Mcg INH] 1 each IH DAILY #1 blst.w.dev Hydrochlorothiazide [Hydrodiuril*] 25 mg PO DAILY #30 tab Levofloxacin [Levaquin*] 500 mg PO DAILY 5 PM #7 tab Lisinopril [Prinivil*] 10 mg PO BID #60 tab Pantoprazole [Protonix Tab] 40 mg PO DAILY #30 tab Prednisone [Deltasone] 20 mg PO SEECOM #15 tab Roflumilast [Daliresp*] 500 mcg PO DAILY #30 tablet Patient Discharge Instructions: 1. Patient will need a follow up with his PCP in 1 week to follow up this hospitalization. 2. Patient presented with shortness of breath secondary to COPD exacerbation. Patient evaluated by pulmonology. Patient has moderate to severe COPD requiring home oxygen. He is on chronic steroids as well. At discharge he will continue with prednisone 20 mg 1 pill twice daily for 5 days then 1 pill once daily for 5 days. Then the patient may go back to his regimen of prednisone 10 mg daily. Patient will maintain oxygen saturations above 90%. Patient will need to limit his activities at home. Compliance with his medications for COPD with will need to be enforced. Patient will continue with Breo 1 puff daily, albuterol nebulized treatments 1 unit dose 3 times a day as needed for shortness of breath. New medication Daliresp 1 pill daily will be added. Patient will also go home on antibiotic therapy-Levaquin 500 mg daily for 7 days. Recommendation is for the patient to follow up with pulmonology in 1 week to follow up this hospitalization. 3. Patient has hypertension. Medications have been adjusted. Patient will continue with Norvasc 10 mg daily. Lisinopril has been increased to 10 mg 1 pill twice daily. Hydrochlorothiazide 25 mg 1 pill daily has been added. Recommendation is to maintain blood pressures less 150/80. Further adjustment can be done by his PCP. 4. Tobacco cessation education will be provided. 5. Patient may have underlying GERD. Patient will continue with Protonix 40 mg 1 pill once daily. 6. Recommendation is to recheck lab- BMP and repeat chest x-ray in 4 weeks to monitor his progress. Diet: AHA Activity: Ad simran Followup: Yonatan Frank MD [ACTIVE - CAN ADMIT] - 1 Week (call to schedule appoinment ) Time spent managing pt's care (in minutes): 55
== END 2018-03-02 14:20 | disposition home or self-care (01) | DRG 192 ==
LOC: ER 06:30 → ERHOLD 09:46 → 4TH 11:32
PROVIDERS: ADMIT Internal Medicine; ATTEND Family Medicine
PROC: 5A09457 Assistance with Respiratory Ventilation, 24-96 Consecutive Hours, Continuous Positive Airway Pressure (ICD-10-PCS; principal; 2018-02-27)
DX: J44.1 Chronic obstructive pulmonary disease with (acute) exacerbation (principal); I10 Essential (primary) hypertension; K21.9 Gastro-esophageal reflux disease without esophagitis; D72.829 Elevated white blood cell count, unspecified; Z99.81 Dependence on supplemental oxygen; Z79.52 Long term (current) use of systemic steroids; Z72.0 Tobacco use; Z23 Encounter for immunization
CPT/HCPCS: 36415; 71045; 71046; 80048; 80053; 81003; 82805; 83735; 83880; 84484; 85025; 87040; 90670; 93005; 94640; 94660; 94760; 96374; 97163; 99285; G0009; J1650; J2543; J2930; J7512; J7605; Q2035

== ENCOUNTER 2019-01-06 12:40 | Emergency (ER) | payer OTHER ==
--- NOTE | 2019-01-06 14:06 | RAD REPORT ---
EXAM DESCRIPTION: RAD - Chest Pa And Lat (2 Views) - 01/06/2019 1:56 pm CLINICAL HISTORY: Cough, dyspnea, shortness of breath, COPD COMPARISON: February 2018 TECHNIQUE: PA and lateral views of the chest were obtained. FINDINGS: The lungs are fibrotic with flattened diaphragm and a mild increase in retrosternal space. Fibrotic pattern is not clearly different from comparison. A superimposed infiltrate, mass or failur e finding not seen. Heart size is normal and central vasculature is within normal limits. No pleur al effusion or pneumothorax seen. No acute bony finding noted. No aortic abnormality. IMPRESSION: Fibrotic and obstructive lung changes matching prior imaging. No acute findings seen.
[2019-01-06] MEDS ORDERED: ASPIRIN 81 MG CHEWABLE TABLET ONE (14:38)
[2019-01-06] MEDS ORDERED: IPRATROPIUM BROM 0.5MG/2.5ML ONE (14:38)
[2019-01-06] MEDS ORDERED: ALBUTEROL 2.5 MG/3 ML NEB SOL ONE (14:38)
[2019-01-06] MEDS ORDERED: METHYLPREDNISOLONE 125 MG INJ ONE (14:38)
[2019-01-06 14:59] LABS: Absolute Lymphocytes (CBC) 0.5 K/uL (0.7-4.9); Absolute Monocytes 0.2 K/uL (0.1-1.3); Absolute Neutrophil 6.8 K/uL (1.8-8.0); Basophils % 0.5 % (0-1.3); Eosinophils % 0.2 % (0-4.4); Hematocrit 45.4 % (39.6-49.0); Lymphocytes % 6.5 % (15.3-44.8); MPV 6.8 fL (7.6-11.3); Monocytes % 2.5 % (3.3-12.3); RBC Red Blood Cell Count 4.83 M/uL (4.33-5.43)
[2019-01-06 15:00] LABS: Protime INR 1.02
[2019-01-06 15:16] LABS: ALT/SGPT 25 U/L (12-78); AST/SGOT 16 U/L (15-37); Albumin 4.2 g/dL (3.4-5.0); Alkaline Phosphatase 85 U/L (45-117); BUN Blood Urea Nitrogen 11 mg/dL (7-18); Bicarbonate 27 mmol/L (21-32); Bilirubin Direct 0.1 mg/dL (0-0.2); Bilirubin Total 0.5 mg/dL (0.2-1.0); Glucose Level 132 mg/dL (74-106); Magnesium 2.3 mg/dL (1.8-2.4); NT PRO-BNP 21 pg/mL (<125); Potassium 4.2 mmol/L (3.5-5.1); Protein, Total 7.7 g/dL (6.4-8.2); Sodium Level 140 mmol/L (136-145); Troponin (Emerg Dept Use Only) < 0.02 ng/mL (0.0-0.045)
--- NOTE | 2019-01-06 16:03 | ER ---
Nurse's Notes [facility] Name: Zane Dave Age: 68 yrs Sex: Male : 1950 Arrival Date: 01/06/2019 Time: 12:42 Bed 19 Private MD: Warren Blackman E Diagnosis: Chronic obstructive pulmonary disease with (acute) exacerbation Presentation: 01/06 12:44 Presenting complaint: Patient states: hx of COPD, this episode of SOB started a week hj ago, been taking albuterol and prednisone this AM; not helping; denies fever and chills; reports chest tightness;. Transition of care: patient was not received from another setting of care. Onset of symptoms was January 06, 2019. Risk Assessment: Do you want to hurt yourself or someone else? Patient reports no desire to harm self or others. Initial Sepsis Screen: Does the patient meet any 2 criteria? No. Patient's initial sepsis screen is negative. Does the patient have a suspected source of infection? No. Patient's initial sepsis screen is negative. Care prior to arrival: None. 12:44 Method Of Arrival: Ambulatory 12:44 Acuity: TABBY 3 hj Triage Assessment: 12:46 General: Appears in no apparent distress. uncomfortable, Behavior is calm, cooperative, hj appropriate for age. Pain: Complains of pain in chest. Respiratory: Reports shortness of breath Onset: The symptoms/episode began/occurred suddenly, the patient has mild shortness of breath. Historical: - Allergies: 12:46 No Known Drug Allergies; hj - Home Meds: 12:46 prednisone 5 mg Oral tab once daily [Active]; amlodipine 10 mg tab 1 tab once daily [Active]; lisinopril Oral [Active]; albuterol sulfate 2.5 mg /3 mL (0.083 %) Inhl nebu 3 mL 3 times per day [Active]; - PMHx: 12:46 Asthma; COPD; Hypertension; hj - PSHx: 12:46 None; hj - Immunization history:: Adult Immunizations up to date. - Social history:: Smoking status: Patient/guardian denies using tobacco, Patient/guardian denies using alcohol. - Ebola Screening: : Patient negative for fever greater than or equal to 101.5 degrees Fahrenheit, and additional compatible Ebola Virus Disease symptoms Patient denies exposure to infectious person Patient denies travel to an Ebola-affected area in the 21 days before illness onset. Screenin:47 Abuse screen: Denies threats or abuse. Denies injuries from another. Nutritional hj screening: No deficits noted. Tuberculosis screening: No symptoms or risk factors identified. Fall Risk None identified. Assessment: 12:47 Cardiovascular: Rhythm is. Respiratory: Airway is patent Respiratory effort is labored, hj Respiratory pattern is regular, symmetrical, 14:05 General: Appears in no apparent distress. comfortable, Behavior is calm, cooperative, bp appropriate for age. Pain: Denies pain. Neuro: Level of Consciousness is awake, alert, obeys commands, Oriented to person, place, time, situation, Appropriate for age. Cardiovascular: No deficits noted. Respiratory: Airway is patent Respiratory effort is even, labored, Respiratory pattern is regular, symmetrical, Breath sounds with wheezes. GI: No signs and/or symptoms were reported involving the gastrointestinal system. : No signs and/or symptoms were reported regarding the genitourinary system. EENT: No deficits noted. Derm: No deficits noted. Musculoskeletal: Circulation, motion, and sensation intact. Range of motion: intact in all extremities. 16:18 Reassessment: PT D/C HOME AMBULATORY, DX WITH COPD EXACERBATION. bp Vital Signs: 12:47 BP 134 / 79; Pulse 84; Resp 20; Temp 97.8(TE); Pulse Ox 97% on R/A; Weight 108.86 kg; hj Height 6 ft. 1 in. (185.42 cm); Pain 5/10; 14:13 BP 138 / 72; Pulse 75; Resp 18; Temp 97.2(O); Pulse Ox 97% on R/A; mh5 15:07 BP 142 / 68; Pulse 73; Resp 20; Temp 98.0(O); Pulse Ox 96% on R/A; mh5 15:51 BP 144 / 62; Pulse 67; Resp 14; Pulse Ox 95% ; bp 12:47 Body Mass Index 31.66 (108.86 kg, 185.42 cm) ED Course: 12:42 Patient arrived in ED. mr 12:43 Warren Blackman MD is Private Physician. mr 12:45 Triage completed. 12:47 Arm band placed on left wrist. 12:47 Patient has correct armband on for positive identification. Placed in gown. Bed in low hj position. Call light in reach. Side rails up X 1. 13:27 EKG done, by mathematical engineering technician. reviewed by Warren Greenberg MD. 3 13:48 Chest Pa And Lat (2 Views) XRAY In Process Unspecified. EDMA 14:03 Levi Montgomery PA is PHCP. cp 14:03 Warren Greenberg MD is Attending Physician. cp 14:03 Sander Puente, RN is Primary Nurse. bp 14:50 Inserted saline lock: 22 gauge in left hand, using aseptic technique. Blood collected. bp 16:18 No provider procedures requiring assistance completed. IV discontinued, intact, bp bleeding controlled, No redness/swelling at site. Pressure dressing applied. Administered Medications: 14:40 Drug: Aspirin Chewable Tablet 324 mg Route: PO; bp 14:45 Drug: SOLU-Medrol 125 mg Route: IVP; Site: left hand; bp 14:50 Drug: Albuterol - atroVENT (3:1) (2.5 mg - 0.5 mg) 3 ml Route: Nebulizer; bp Outcome: 16:02 Discharge ordered by MD. cp 16:18 Discharged to home ambulatory. bp 16:18 Condition: stable 16:18 Discharge instructions given to patient, Instructed on discharge instructions, follow up and referral plans. medication usage, Demonstrated understanding of instructions, follow-up care, medications, Prescriptions given X 2. 16:19 Patient left the ED. bp Signatures: Dispatcher [employer] EDMA Hiral JeffreyMilo RN RN hj Page, Corey, PA PA Sulema Mcqueen [facility] Sander Puente, GERARDO RN bp Ayana Thompson 3 Corrections: (The following items were deleted from the chart) 12:49 12:44 Presenting complaint: Patient states: hx of COPD, this episode of SOB started a hj week ago, been taking albuterol and prednisone this AM; not helping; denies fever and chills; hj 12:49 12:47 Pulse 84bpm; Resp 20bpm; Pulse Ox 97% RA; Temp 97.8F Temporal; 108.86 kg; Height hj 6 ft. 1 in.; BMI: 31.6; Pain 5/10; hj
--- NOTE | 2019-01-06 16:04 | EDPHYS ---
Physician Documentation [facility] Name: Zane Dave Age: 68 yrs Sex: Male : 1950 Arrival Date: 01/06/2019 Time: 12:42 Bed 19 Private MD: Warren Blackman E ED Physician Warren Greenberg HPI: 01/06 14:29 This 68 yrs old Male presents to ER via Ambulatory with complaints of cp Breathing Difficulty. 14:29 The patient has shortness of breath with light activity. Onset: The symptoms/episode cp began/occurred 1 week(s) ago. Duration: The symptoms are continuous, and are steadily getting worse. Associated signs and symptoms: Pertinent positives: chest pain, Pertinent negatives: productive cough, diaphoresis, dizziness, fever, vomiting. Severity of symptoms: in the emergency department the symptoms are unchanged despite home interventions. Historical: - Allergies: 12:46 No Known Drug Allergies; hj - Home Meds: 12:46 prednisone 5 mg Oral tab once daily [Active]; amlodipine 10 mg tab 1 tab once daily hj [Active]; lisinopril Oral [Active]; albuterol sulfate 2.5 mg /3 mL (0.083 %) Inhl nebu 3 mL 3 times per day [Active]; - PMHx: 12:46 Asthma; COPD; Hypertension; hj - PSHx: 12:46 None; hj - Immunization history:: Adult Immunizations up to date. - Social history:: Smoking status: Patient/guardian denies using tobacco, Patient/guardian denies using alcohol. - Ebola Screening: : Patient negative for fever greater than or equal to 101.5 degrees Fahrenheit, and additional compatible Ebola Virus Disease symptoms Patient denies exposure to infectious person Patient denies travel to an Ebola-affected area in the 21 days before illness onset. ROS: 14:35 Constitutional: Negative for body aches, chills, fever, poor PO intake. cp 14:35 Eyes: Negative for injury, pain, redness, and discharge. cp 14:35 ENT: Negative for drainage from ear(s), ear pain, sore throat, difficulty swallowing, difficulty handling secretions. 14:35 Cardiovascular: Positive for chest pain, with cough, Negative for edema, palpitations. 14:35 Respiratory: Positive for cough, with no reported sputum, shortness of breath, wheezing. 14:35 Abdomen/GI: Negative for abdominal pain, nausea, vomiting, and diarrhea, constipation, black/tarry stool, rectal bleeding. 14:35 Back: Negative for pain at rest, pain with movement, radiated pain. 14:35 : Negative for urinary symptoms. 14:35 Skin: Negative for cellulitis, rash. 14:35 Neuro: Negative for altered mental status, headache, syncope, near syncope, weakness. 14:35 All other systems are negative. Exam: 14:24 ECG was reviewed by the Attending Physician. cp 14:40 Constitutional: The patient appears in no acute distress, alert, non-diaphoretic, cp non-toxic, well developed, well nourished. 14:40 Head/Face: Normocephalic, atraumatic. Eyes: Pupils equal round and reactive to light, cp extra-ocular motions intact. Lids and lashes normal. Conjunctiva and sclera are non-icteric and not injected. Cornea within normal limits. Periorbital areas with no swelling, redness, or edema. ENT: Nares patent. No nasal discharge, no septal abnormalities noted. Tympanic membranes are normal and external auditory canals are clear. Oropharynx with no redness, swelling, or masses, exudates, or evidence of obstruction, uvula midline. Mucous membranes moist. Neck: Trachea midline, no thyromegaly or masses palpated, and no cervical lymphadenopathy. Supple, full range of motion without nuchal rigidity, or vertebral point tenderness. No Meningismus. Chest/axilla: Normal chest wall appearance and motion. Nontender with no deformity. No lesions are appreciated. 14:40 Cardiovascular: Rate: normal, Rhythm: regular, Edema: is not appreciated, JVD: is not appreciated. 14:40 Respiratory: the patient does not display signs of respiratory distress, Respirations: normal, no use of accessory muscles, no retractions, no splinting, no tachypnea, labored breathing, that is mild, Breath sounds: bronchial sounds, are not appreciated, decreased breath sounds, that are mild, diffuse, stridor, is not appreciated, wheezing: that is mild, is heard diffusely. 14:40 Abdomen/GI: Inspection: abdomen appears normal, Bowel sounds: active, all quadrants, Palpation: abdomen is soft and non-tender, in all quadrants, rebound tenderness, is not appreciated, voluntary guarding, is not appreciated, involuntary guarding, is not appreciated. 14:40 Back: pain, is absent, ROM is normal. 14:40 Skin: cellulitis, is not appreciated, no rash present. 14:40 Neuro: Orientation: to person, place \T\ time. Mentation: is normal, Cerebellar function: is grossly normal, Motor: moves all fours, strength is normal, Sensation: is normal. Vital Signs: 12:47 BP 134 / 79; Pulse 84; Resp 20; Temp 97.8(TE); Pulse Ox 97% on R/A; Weight 108.86 kg; hj Height 6 ft. 1 in. (185.42 cm); Pain 5/10; 14:13 BP 138 / 72; Pulse 75; Resp 18; Temp 97.2(O); Pulse Ox 97% on R/A; mh5 15:07 BP 142 / 68; Pulse 73; Resp 20; Temp 98.0(O); Pulse Ox 96% on R/A; mh5 15:51 BP 144 / 62; Pulse 67; Resp 14; Pulse Ox 95% ; bp 12:47 Body Mass Index 31.66 (108.86 kg, 185.42 cm) hj MDM: 14:05 Patient medically screened. cp 14:30 Differential diagnosis: asthma, Bronchitis CHF exacerbation, Chronic Obstructive cp Pulmonary Disease Myocardial Infarction pneumonia, Pneumothorax Pulmonary Embolism reactive airway disease, Unstable Angina. 16:00 Data reviewed: vital signs, nurses notes, lab test result(s), EKG, radiologic studies, cp plain films. 16:00 Test interpretation: by ED physician or midlevel provider: ECG, plain radiologic cp studies. Counseling: I had a detailed discussion with the patient and/or guardian regarding: the historical points, exam findings, and any diagnostic results supporting the discharge/admit diagnosis, lab results, radiology results, the need for outpatient follow up, a family practitioner, to return to the emergency department if symptoms worsen or persist or if there are any questions or concerns that arise at home. Response to treatment: the patient's symptoms have markedly improved after treatment, VSS. Wheezing resolved and patient reports shortness of breath improved. Will discharge to home for continued monitoring. 01/06 14:21 Order name: Basic Metabolic Panel; Complete Time: 15:28 cp 01/06 14:21 Order name: CBC with Diff cp 01/06 14:21 Order name: LFT's; Complete Time: 15:28 cp 01/06 14:21 Order name: Magnesium; Complete Time: 15:28 cp 01/06 14:21 Order name: NT PRO-BNP; Complete Time: 15:28 cp 01/06 14:21 Order name: PT-INR; Complete Time: 15:28 cp 01/06 12:48 Order name: EKG; Complete Time: 12:49 hj 01/06 13:14 Order name: Chest Pa And Lat (2 Views) XRAY; Complete Time: 14:21 snw 01/06 14:21 Interpretation: Report reviewed. cp 01/06 14:05 Order name: EKG - Nurse/Tech; Complete Time: 14:05 bp 01/06 14:21 Order name: Troponin (emerg Dept Use Only); Complete Time: 15:28 cp 01/06 14:21 Order name: Cardiac monitoring; Complete Time: 14:23 cp 01/06 14:21 Order name: IV Saline Lock; Complete Time: 14:52 cp 01/06 14:21 Order name: Labs collected and sent; Complete Time: 14:53 cp 01/06 14:21 Order name: O2 Per Protocol; Complete Time: 14:23 cp 01/06 14:21 Order name: O2 Sat Monitoring; Complete Time: 14:23 cp EC:24 Rate is 76 beats/min. Rhythm is regular. ID interval is normal. QRS interval is cp prolonged at 142 msec. QT interval is normal. T waves are Inverted in leads aVL, V2, V3. Interpreted by me. Reviewed by me. Administered Medications: 14:40 Drug: Aspirin Chewable Tablet 324 mg Route: PO; bp 14:45 Drug: SOLU-Medrol 125 mg Route: IVP; Site: left hand; bp 14:50 Drug: Albuterol - atroVENT (3:1) (2.5 mg - 0.5 mg) 3 ml Route: Nebulizer; bp Disposition: 01/07 12:55 Co-signature as Attending Physician, Warren Greenberg MD I agree with the assessment and wa plan of care. Disposition: 01/06/19 16:02 Discharged to Home. Impression: Chronic obstructive pulmonary disease with (acute) exacerbation. - Condition is Stable. - Discharge Instructions: Asthma, Adult, Chronic Obstructive Pulmonary Disease Exacerbation. - Prescriptions for prednisone 50 mg Oral tablet - take 1 tablet by ORAL route once daily for 5 days start morning of 01-07-2019; 5 tablet. Albuterol Sulfate 2.5 mg /3 mL (0.083 %) Inhalation Solution for Nebulization - inhale 1 unit by NEBULIZATION route every 8 hours As needed; 1 box. - Medication Reconciliation Form, Thank You Letter, Antibiotic Education, Prescription Opioid Use form. - Follow up: Private Physician; When: 2 - 3 days; Reason: Recheck today's complaints. - Problem is an acute exacerbation. - Symptoms have improved. Signatures: Dispatcher [employer] EDMS Milo Seals RN RN Levi Springer PA PA cp Warren Greenberg MD MD wa Peltier, Brian RN RN bp Corrections: (The following items were deleted from the chart) 01/06 16:19 16:02 01/06/2019 16:02 Discharged to Home. Impression: Chronic obstructive pulmonary bp disease with (acute) exacerbation. Condition is Stable. Forms are Medication Reconciliation Form, Thank You Letter, Antibiotic Education, Prescription Opioid Use. Follow up: Private Physician; When: 2 - 3 days; Reason: Recheck today's complaints. Problem is an acute exacerbation. Symptoms have improved. cp
[2019-01-06 16:33] VITALS: TEMP 98
[2019-01-06 16:34] VITALS: BP 144/62; O2SAT 95
--- NOTE | 2019-01-06 17:04 | EKG ---
Test Date: 2019-01-06 Test Time: 13:19:44 Personnel Supervisor: SARKIS MEASUREMENT RESULTS: Intervals: Rate: 76 IL: 156 QRSD: 142 QT: 404 QTc: 454 Norco: P: 70 IL: 156 QRS: 89 T: 77 INTERPRETIVE STATEMENTS: Normal sinus rhythm Right bundle branch block Abnormal ECG Compared to ECG 02/27/2018 06:56:03 No significant changes Electronically Signed On 01-06-19 17:03:36 [employer] by Aryan Isidro
[2019-01-06 17:36] LABS: Blood Morphology Comment NOT SEEN (NOT SEEN); Platelet Estimate ADEQ; Urine White Blood Cell Casts OK
== END 2019-01-06 16:19 | disposition home or self-care (01) ==
LOC: ER 12:40
DX: J44.1 Chronic obstructive pulmonary disease with (acute) exacerbation (principal); I10 Essential (primary) hypertension; J45.909 Unspecified asthma, uncomplicated
CPT/HCPCS: 36415; 71046; 80048; 80076; 83735; 83880; 84484; 85025; 85610; 93005; 94640; 96374; 99284; J2930

== ENCOUNTER 2019-02-03 11:07 | Emergency (ER) | payer OTHER ==
[2019-02-03] MEDS ORDERED: HYDROCODONE/APAP 10/325 TAB ONE (11:52)
--- NOTE | 2019-02-03 13:43 | RAD REPORT ---
EXAM DESCRIPTION: RAD - Hand Left 3 View - 02/03/2019 1:21 pm CLINICAL HISTORY: Laceration distal fourth digit COMPARISON: None. FINDINGS: No fracture, dislocation or periosteal reaction noted. No metallic foreign body seen. Band aging surrounds the distal fourth digit creating artifact. IMPRESSION: No acute bone findings seen. No retained foreign body.
--- NOTE | 2019-02-03 13:57 | EDPHYS ---
Physician Documentation [facility] Name: Zane Dave Age: 68 yrs Sex: Male : 1950 Arrival Date: 02/03/2019 Time: 11:08 Bed 9 Private MD: Warren Blackman E ED Physician Sanchez Rosen HPI: 02/03 11:20 This 68 yrs old Male presents to ER via Ambulatory with complaints of kav Laceration To Hand. 11:27 The patient has a laceration related to: working, Skill Saw, occurred at home, and The kav injury was accidental. The laceration(s) is(are) located on the dorsal aspect of middle phalanx of left ring finger and palmar aspect of middle phalanx of left ring finger. Onset: The symptoms/episode began/occurred acutely, just prior to arrival. 11:27 Associated signs and symptoms: The patient has no apparent associated signs or kav symptoms. The patient has not experienced similar symptoms in the past. 11:41 of patient reports that "...he received a tetanus shot approximately 4 years ago". kav Patient rates pain at 10/10. Historical: - Allergies: 11:14 No Known Allergies; hb - Home Meds: 11:14 albuterol sulfate 2.5 mg /3 mL (0.083 %) Inhl nebu 3 mL 3 times per day [Active]; hb amlodipine 10 mg tab 1 tab once daily [Active]; lisinopril Oral [Active]; prednisone 5 mg Oral tab once daily [Active]; - PMHx: 11:14 Asthma; COPD; Hypertension; hb - PSHx: 11:14 None; hb - Immunization history:: Adult Immunizations. - Social history:: Smoking status: Patient/guardian denies using tobacco. - Ebola Screening: : No symptoms or risks identified at this time. - Family history:: not pertinent. - Hospitalizations: : No recent hospitalization is reported. ROS: 11:27 Constitutional: Negative for fever, chills, and weight loss, Eyes: Negative for injury, kav pain, redness, and discharge, ENT: Negative for injury, pain, and discharge, Neck: Negative for injury, pain, and swelling, Cardiovascular: Negative for chest pain, palpitations, and edema, Respiratory: Negative for shortness of breath, cough, wheezing, and pleuritic chest pain, Abdomen/GI: Negative for abdominal pain, nausea, vomiting, diarrhea, and constipation, Back: Negative for injury and pain, : Negative for injury, bleeding, discharge, and swelling, MS/Extremity: Negative for injury and deformity, Neuro: Negative for headache, weakness, numbness, tingling, and seizure, Psych: Negative for depression, anxiety, suicide ideation, homicidal ideation, and hallucinations, Allergy/Immunology: Negative for hives, rash, and allergies, Endocrine: Negative for neck swelling, polydipsia, polyuria, polyphagia, and marked weight changes, Hematologic/Lymphatic: Negative for swollen nodes, abnormal bleeding, and unusual bruising. 11:27 Skin: Positive for laceration(s), of the palmar aspect of middle phalanx of left ring finger and dorsal aspect of middle phalanx of left ring finger. Exam: 11:27 Constitutional: This is a well developed, well nourished patient who is awake, alert, kav and in no acute distress. Head/Face: Normocephalic, atraumatic. Eyes: Pupils equal round and reactive to light, extra-ocular motions intact. Lids and lashes normal. Conjunctiva and sclera are non-icteric and not injected. Cornea within normal limits. Periorbital areas with no swelling, redness, or edema. ENT: Nares patent. No nasal discharge, no septal abnormalities noted. Tympanic membranes are normal and external auditory canals are clear. Oropharynx with no redness, swelling, or masses, exudates, or evidence of obstruction, uvula midline. Mucous membranes moist. Neck: Trachea midline, no thyromegaly or masses palpated, and no cervical lymphadenopathy. Supple, full range of motion without nuchal rigidity, or vertebral point tenderness. No Meningismus. Chest/axilla: Normal chest wall appearance and motion. Nontender with no deformity. No lesions are appreciated. Cardiovascular: Regular rate and rhythm with a normal S1 and S2. No gallops, murmurs, or rubs. Normal PMI, no JVD. No pulse deficits. Respiratory: Lungs have equal breath sounds bilaterally, clear to auscultation and percussion. No rales, rhonchi or wheezes noted. No increased work of breathing, no retractions or nasal flaring. Abdomen/GI: Soft, non-tender, with normal bowel sounds. No distension or tympany. No guarding or rebound. No evidence of tenderness throughout. Back: No spinal tenderness. No costovertebral tenderness. Full range of motion. Male : Normal genitalia with no discharge or lesions. MS/ Extremity: Pulses equal, no cyanosis. Neurovascular intact. Full, normal range of motion. Neuro: Awake and alert, GCS 15, oriented to person, place, time, and situation. Cranial nerves II-XII grossly intact. Motor strength 5/5 in all extremities. Sensory grossly intact. Cerebellar exam normal. Normal gait. Psych: Awake, alert, with orientation to person, place and time. Behavior, mood, and affect are within normal limits. 11:27 Skin: injury, laceration(s), the wound is approximately 3 cm(s), with a depth of 1 cm(s), of the palmar aspect of middle phalanx of left ring finger. Vital Signs: 11:14 BP 178 / 76; Pulse 78; Resp 16; Temp 98.3; Pulse Ox 98% ; Pain 7/10; hb MDM: 11:18 Medical screening is not applicable. kav 13:54 Differential diagnosis: superficial laceration, tendon injury, vascular injury. Data kav reviewed: vital signs, nurses notes, radiologic studies, plain films. 13:54 Counseling: I had a detailed discussion with the patient and/or guardian regarding: the kav historical points, exam findings, and any diagnostic results supporting the discharge/admit diagnosis, radiology results, the need for outpatient follow up. 02/03 11:27 Order name: Hand Left 3 View XRAY; Complete Time: 13:45 kav 02/03 13:45 Interpretation: No acute disease. kav Administered Medications: 11:42 Drug: HYDROcodone-acetaminophen 10 mg-325 mg 1 tabs Route: PO; iw Disposition: 14:59 Co-signature as Attending Physician, Sanchez Rosen MD I agree with the assessment and kdr plan of care. Disposition: 02/03/19 13:56 Discharged to Home. Impression: superficial laceration left hand lateral aspect 4th digit, Essential (primary) hypertension. - Condition is Stable. - Discharge Instructions: Nonsutured Laceration Care, Hypertension, [id number], Laceration Care, Adult, [id number], How to Take Your Blood Pressure, [id number], DASH Eating Plan, Managing Your Hypertension. - Prescriptions for Clindamycin HCl 300 mg Oral Capsule - take 1 capsule by ORAL route every 6 hours for 10 days; 40 capsule. Tramadol 50 mg Oral Tablet - take 1 tablet by ORAL route every 8 hours as needed; 12 tablet. - Thank You Letter, Antibiotic Education, Prescription Opioid Use form. - Follow up: Warren Blackman MD; When: 2 - 3 days; Reason: Recheck today's complaints, Continuance of care, Re-evaluation by your physician. - Problem is new. - Symptoms have improved. - Notes: keep wound clean and dry follow-up with pcp in 2-3 days for post-ED evaluation and treatment return to ED if uncontrolled bleeding or fever \\T\\gt; 101.5 orally Signatures: Dispatcher [employer] EDMS Sanchez Rosen MD MD kdr Vern, Katherine, CVIR TECH CVIR TECH Carly Jeronimo RN RN iw Kerline Hassan RN RN Corrections: (The following items were deleted from the chart) 14:06 13:56 02/03/2019 13:56 Discharged to Home. Impression: superficial laceration left hand iw lateral aspect 4th digit; Essential (primary) hypertension. Condition is Stable. Forms are Medication Reconciliation Form, Thank You Letter, Antibiotic Education, Prescription Opioid Use. Follow up: Warren Blackman; When: 2 - 3 days; Reason: Recheck today's complaints, Continuance of care, Re-evaluation by your physician. Problem is new. Symptoms have improved. sonam
--- NOTE | 2019-02-03 13:57 | ER ---
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 Transition of care: patient was not received from another setting of care. Complicating Factors: There are no complicating factors for this patient. Onset of symptoms was February 03, 2019. Risk Assessment: Do you want to hurt yourself or someone else? Patient reports no desire to harm self or others. Care prior to arrival: None. 11:13 Method Of Arrival: Ambulatory hb 11:13 Acuity: TABBY 4 hb 11:15 Initial Sepsis Screen: Does the patient meet any 2 criteria? No. Patient's initial iw sepsis screen is negative. Does the patient have a suspected source of infection? No. Patient's initial sepsis screen is negative. Triage Assessment: 13:00 General: Appears in no apparent distress. Behavior is calm. Injury Description: iw Laceration sustained to dorsal aspect of middle phalanx of left ring finger and palmar aspect of middle phalanx of left ring finger is jagged, was sustained 30-60 minutes ago. is bleeding a small amount. Historical: - Allergies: 11:14 No Known Allergies; hb - Home Meds: 11:14 albuterol sulfate 2.5 mg /3 mL (0.083 %) Inhl nebu 3 mL 3 times per day [Active]; hb amlodipine 10 mg tab 1 tab once daily [Active]; lisinopril Oral [Active]; prednisone 5 mg Oral tab once daily [Active]; - PMHx: 11:14 Asthma; COPD; Hypertension; hb - PSHx: 11:14 None; hb - Immunization history:: Adult Immunizations. - Social history:: Smoking status: Patient/guardian denies using tobacco. - Ebola Screening: : No symptoms or risks identified at this time. - Family history:: not pertinent. - Hospitalizations: : No recent hospitalization is reported. Screenin:00 Abuse screen: Denies threats or abuse. Denies injuries from another. Nutritional iw screening: No deficits noted. Tuberculosis screening: No symptoms or risk factors identified. Fall Risk None identified. Assessment: 12:00 General: Appears in no apparent distress. Behavior is calm, cooperative. Pain: iw Complains of pain in palmar aspect of middle phalanx of left ring finger and dorsal aspect of middle phalanx of left ring finger. Neuro: Level of Consciousness is awake, alert, obeys commands, Moves all extremities. Cardiovascular: Patient's skin is warm and dry. Musculoskeletal: Range of motion: intact in all extremities. Injury Description: Laceration is jagged, superficial, 0.5 to 2.5 cm long. Vital Signs: 11:14 BP 178 / 76; Pulse 78; Resp 16; Temp 98.3; Pulse Ox 98% ; Pain 7/10; hb ED Course: 11:08 Patient arrived in ED. rg4 11:08 Warren Blackman MD is Private Physician. rg4 11:14 Triage completed. hb 11:14 Arm band placed on. hb 11:15 Patient has correct armband on for positive identification. iw 11:17 Richa Grimaldo FNP is PHCP. kav 11:18 Sanchez Rosen MD is Attending Physician. kav 11:23 Carly Asencio RN is Primary Nurse. iw 13:22 Hand Left 3 View XRAY In Process Unspecified. EDMS 13:54 Warren Blackman MD is Referral Physician. kav 14:00 No provider procedures requiring assistance completed. Patient did not have IV access iw during this emergency room visit. Administered Medications: 11:42 Drug: HYDROcodone-acetaminophen 10 mg-325 mg 1 tabs Route: PO; iw Outcome: 13:56 Discharge ordered by . kav 14:05 Discharged to home ambulatory, with family. iw 14:05 Condition: good 14:05 Discharge instructions given to patient, Instructed on discharge instructions, follow up and referral plans. medication usage, Demonstrated understanding of instructions, follow-up care, medications, Prescriptions given X 2. 14:06 Patient left the ED. iw Signatures: Dispatcher [employer] EDMS Richa Grimaldo FNP FNP kaCarly López RN RN Kerline Hassan RN RN Jessa Elliott rg4 Corrections: (The following items were deleted from the chart) 17:56 12:00 Injury Description: Laceration sustained to palmar aspect of middle phalanx of iw left ring finger and dorsal aspect of middle phalanx of left ring finger is jagged, 0.5 to 2.5 cm long, iw
[2019-02-03 14:10] VITALS: BP 178/76; TEMP 98.3; O2SAT 98
== END 2019-02-03 14:06 | disposition home or self-care (01) ==
LOC: ER 11:07
DX: S61.215A Laceration without foreign body of left ring finger without damage to nail, initial encounter (principal); W29.8XXA Contact with other powered hand tools and household machinery, initial encounter; Y93.9 Activity, unspecified; Y92.009 Unspecified place in unspecified non-institutional (private) residence as the place of occurrence of the external cause; I10 Essential (primary) hypertension; J44.9 Chronic obstructive pulmonary disease, unspecified
CPT/HCPCS: 99283

== ENCOUNTER 2019-06-08 16:23 | Emergency (ER) | payer OTHER ==
[2019-06-08] MEDS ORDERED: LIDOCAINE 1% MPF 30 ML VIAL ONE (17:36)
[2019-06-08] MEDS ORDERED: TETANUS & DIPHTHERIA TOX,ADULT 0.5 ML VIAL ONE (17:38)
--- NOTE | 2019-06-08 18:16 | RAD REPORT ---
EXAM DESCRIPTION: RAD - Tib Fib Right - 06/08/2019 6:06 pm CLINICAL HISTORY: Right leg pain status post injury FINDINGS: No fracture is seen
--- NOTE | 2019-06-08 19:29 | EDPHYS ---
Physician Documentation [facility] Name: Zane Dave Age: 68 yrs Sex: Male : 1950 Arrival Date: 06/08/2019 Time: 16:25 Bed 19 Private MD: Warren Blackman E ED Physician Sanchez Rosen HPI: 06/08 19:28 This 68 yrs old Male presents to ER via Ambulatory with complaints of Fall kb Injury, Laceration To Leg. 20:16 Details of fall: The patient fell from an upright position, while walking. Onset: The kb symptoms/episode began/occurred just prior to arrival. Associated injuries: The patient sustained right dempsey, laceration, 6 cm(s). Severity of symptoms: At their worst the symptoms were moderate, in the emergency department the symptoms are unchanged. The patient has not experienced similar symptoms in the past. The patient has not recently seen a physician. 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 Historical: - Allergies: 16:27 No Known Drug Allergies; hj - PMHx: 16:27 Asthma; COPD; Hypertension; hj - PSHx: 16:27 None; hj - Immunization history:: Adult Immunizations. - Ebola Screening: : No symptoms or risks identified at this time. - Social history:: Smoking status: Patient uses tobacco products. ROS: 20:16 Constitutional: Negative for fever, chills, and weight loss, Neck: Negative for injury, kb pain, and swelling, Cardiovascular: Negative for chest pain, palpitations, and edema, Respiratory: Negative for shortness of breath, cough, wheezing, and pleuritic chest pain, Abdomen/GI: Negative for abdominal pain, nausea, vomiting, diarrhea, and constipation, MS/Extremity: Negative for injury and deformity, Neuro: Negative for headache, weakness, numbness, tingling, and seizure. 20:16 Skin: Positive for laceration(s), of the right dempsey. Exam: 20:16 Constitutional: This is a well developed, well nourished patient who is awake, alert, kb and in no acute distress. Head/Face: Normocephalic, atraumatic. Chest/axilla: Normal chest wall appearance and motion. Nontender with no deformity. No lesions are appreciated. Cardiovascular: Regular rate and rhythm with a normal S1 and S2. No gallops, murmurs, or rubs. Normal PMI, no JVD. No pulse deficits. Respiratory: Lungs have equal breath sounds bilaterally, clear to auscultation and percussion. No rales, rhonchi or wheezes noted. No increased work of breathing, no retractions or nasal flaring. Abdomen/GI: Soft, non-tender, with normal bowel sounds. No distension or tympany. No guarding or rebound. No evidence of tenderness throughout. MS/ Extremity: Pulses equal, no cyanosis. Neurovascular intact. Full, normal range of motion. Neuro: Awake and alert, GCS 15, oriented to person, place, time, and situation. Cranial nerves II-XII grossly intact. Motor strength 5/5 in all extremities. Sensory grossly intact. Cerebellar exam normal. Normal gait. 20:16 Skin: injury, laceration(s), the wound is approximately 6 cm(s), of the right dempsey, that can be described as clean, no foreign body, irregular, without bleeding. Vital Signs: 16:27 BP 173 / 72; Pulse 79; Resp 18; Temp 98.1(TE); Pulse Ox 97% on R/A; Weight 104.33 kg; hj Height 6 ft. 1 in. (185.42 cm); Pain 8/10; 19:47 BP 152 / 102; Pulse 64; Resp 18; Temp 98.1(O); Pulse Ox 97% on R/A; tl2 16:27 Body Mass Index 30.35 (104.33 kg, 185.42 cm) hj Laceration: 19:29 Wound Repair of 6cm ( 2.4in ) subcutaneous laceration to right dempsey. Irregularly kb shaped.. Skin/tissue flap noted.. Distal neuro/vascular/tendon intact. Anesthesia: Wound infiltrated with 8 mls of 1% lidocaine. Wound prep: Extensive cleansing with hibiclenz by me, Wound irrigation with saline by me. Skin closed with 11 5-0 Prolene using interrupted sutures and sterile technique. Dressed with Neosporin, non-adherent dressing. Patient tolerated well. MDM: 17:12 Patient medically screened. kb 19:29 Data reviewed: vital signs, nurses notes. Data interpreted: Pulse oximetry: on room air kb is 97 %. Interpretation: normal. Counseling: I had a detailed discussion with the patient and/or guardian regarding: the historical points, exam findings, and any diagnostic results supporting the discharge/admit diagnosis, radiology results, the need for outpatient follow up, a family practitioner, to return to the emergency department if symptoms worsen or persist or if there are any questions or concerns that arise at home. 06/08 17:17 Order name: Tib Fib Right XRAY; Complete Time: 18:23 kb 06/08 17:18 Order name: Prolene, Sutures; Complete Time: 17:25 kb 06/08 17:18 Order name: Dressing - Wound; Complete Time: 19:36 kb 06/08 17:18 Order name: Gloves, Sterile; Complete Time: 17:25 kb 06/08 17:18 Order name: Setup Suture Tray; Complete Time: 17:25 kb Administered Medications: 17:25 Drug: Tetanus-Diphtheria Toxoid Adult 0.5 ml {Chief Librarian Circulation Department: [employer]. Exp: aa5 02/19/2021. Lot #: [id number]. } Route: IM; Site: right deltoid; 17:45 Follow up: Response: No adverse reaction aa5 18:56 Drug: Lidocaine (1 %) 1 vials {Note: administered by NONDESTRUCTIVE TESTER for laceration repair .} aa5 Volume: 20 ml; Route: Infiltration; 19:43 Drug: [place] 10 mg-325 mg 1 tabs Route: PO; tl2 19:48 Follow up: Response: No adverse reaction; Medication administered at discharge. tl2 Disposition: 06/09 07:32 Co-signature as Attending Physician, Sanchez Rosen MD I agree with the assessment and kdr plan of care. Disposition: 06/08/19 19:29 Discharged to Home. Impression: Laceration without foreign body of lower leg - right. - Condition is Stable. - Discharge Instructions: Laceration Care, Adult, [id number], Skin Tear Care, [id number]. - Prescriptions for Keflex 500 mg Oral Capsule - take 1 capsule by ORAL route every 12 hours for 7 days; 14 capsule. - Medication Reconciliation Form, Thank You Letter, Antibiotic Education, Prescription Opioid Use form. - Follow up: Emergency Department; When: As needed; Reason: Worsening of condition. Follow up: Warren Blackman MD; When: 2 - 3 days; Reason: Recheck today's complaints, Continuance of care, Re-evaluation by your physician. Signatures: Dispatcher [employer] EDMS Reina Meyers, CAFETERIA CLERK-C CAFETERIA CLERK-Ckb Sanchez Rosen MD MD [facility] Hanane Eddy RN RN aa5 Milo Seals RN RN Katarzyna Ureña, GERARDO RN tl2 Corrections: (The following items were deleted from the chart) 06/08 19:49 19:29 06/08/2019 19:29 Discharged to Home. Impression: Laceration without foreign body tl2 of lower leg - right. Condition is Stable. Forms are Medication Reconciliation Form, Thank You Letter, Antibiotic Education, Prescription Opioid Use. Follow up: Emergency Department; When: As needed; Reason: Worsening of condition. Follow up: Warren Blackman; When: 2 - 3 days; Reason: Recheck today's complaints, Continuance of care, Re-evaluation by your physician. kb
--- NOTE | 2019-06-08 19:29 | ER ---
Nurse's Notes 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 Transition of care: patient was not received from another setting of care. Onset of symptoms was June 08, 2019. Risk Assessment: Do you want to hurt yourself or someone else? Patient reports no desire to harm self or others. Initial Sepsis Screen: Does the patient meet any 2 criteria? No. Patient's initial sepsis screen is negative. Does the patient have a suspected source of infection? No. Patient's initial sepsis screen is negative. Care prior to arrival: None. 16:26 Method Of Arrival: Ambulatory 16:26 Acuity: TABBY 4 hj Historical: - Allergies: 16:27 No Known Drug Allergies; hj - PMHx: 16:27 Asthma; COPD; Hypertension; hj - PSHx: 16:27 None; hj - Immunization history:: Adult Immunizations. - Ebola Screening: : No symptoms or risks identified at this time. - Social history:: Smoking status: Patient uses tobacco products. Screenin:15 Abuse screen: Denies threats or abuse. Nutritional screening: No deficits noted. aa5 Tuberculosis screening: No symptoms or risk factors identified. Fall Risk None identified. Assessment: 17:15 General: Appears comfortable, Behavior is calm, cooperative. Pain: Complains of pain in aa5 right dempsey Pain currently is 8 out of 10 on a pain scale. Neuro: Level of Consciousness is awake, alert, obeys commands, Oriented to person, place, time, situation. Cardiovascular: Patient's skin is warm and dry. Respiratory: Airway is patent Respiratory effort is even, unlabored, Respiratory pattern is regular, symmetrical. GI: No signs and/or symptoms were reported involving the gastrointestinal system. : No signs and/or symptoms were reported regarding the genitourinary system. EENT: No signs and/or symptoms were reported regarding the EENT system. Derm: Skin is pink, warm \T\ dry. Partial skin avulsion noted to right dempsey approximately 3-4in long, no active bleeding noted. Musculoskeletal: Range of motion: intact in all extremities. 18:43 Reassessment: Patient is alert, oriented x 3, equal unlabored respirations, skin aa5 warm/dry/pink. Awaiting laceration repair, pt notified of wait time . 19:49 Reassessment: Patient appears in no apparent distress at this time. Patient and/or tl2 family updated on plan of care and expected duration. Pain level reassessed. Patient is alert, oriented x 3, equal unlabored respirations, skin warm/dry/pink. pt verbalized understanding of discharge instructions, need for follow up and prescription usage and wound care. Vital Signs: 16:27 BP 173 / 72; Pulse 79; Resp 18; Temp 98.1(TE); Pulse Ox 97% on R/A; Weight 104.33 kg; hj Height 6 ft. 1 in. (185.42 cm); Pain 8/10; 19:47 BP 152 / 102; Pulse 64; Resp 18; Temp 98.1(O); Pulse Ox 97% on R/A; tl2 16:27 Body Mass Index 30.35 (104.33 kg, 185.42 cm) ED Course: 16:25 Patient arrived in ED. mr 16:25 Warren Blackman MD is Private Physician. mr 16:26 Triage completed. hj 16:27 Arm band placed on left wrist. hj 17:02 Reina Meyers FNP-Luigi [facility] kb 17:02 Sanchez Rosen MD is Attending Physician. kb 17:15 Patient has correct armband on for positive identification. Bed in low position. Call aa5 light in reach. Side rails up X 1. 17:17 Hanane Eddy, GERARDO is Primary Nurse. aa5 18:06 Tib Fib Right XRAY In Process Unspecified. EDMS 19:11 Report given to GERARDO Colón. aa5 19:29 Warren Blackman MD is Referral Physician. kb 19:46 Patient did not have IV access during this emergency room visit. Dressings: Kerlix tl2 non-adherent dressing Steri strips. 19:46 No provider procedures requiring assistance completed. 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 Exp: aa5 02/19/2021. Lot #: [id number]. } Route: IM; Site: right deltoid; 17:45 Follow up: Response: No adverse reaction aa5 18:56 Drug: Lidocaine (1 %) 1 vials {Note: administered by SEALING MACHINE OPERATOR for laceration repair .} aa5 Volume: 20 ml; Route: Infiltration; 19:43 Drug: [place] 10 mg-325 mg 1 tabs Route: PO; tl2 19:48 Follow up: Response: No adverse reaction; Medication administered at discharge. tl2 Outcome: 19:29 Discharge ordered by . kb 19:47 Discharged to home ambulatory, with family. tl2 19:47 Condition: stable 19:47 Discharge instructions given to patient, family, Instructed on discharge instructions, follow up and referral plans. medication usage, Demonstrated understanding of instructions, follow-up care, medications, Prescriptions given X 1. 19:49 Patient left the ED. tl2 Signatures: Dispatcher [employer] EDMS Reina Meyers, TONY-Luigi JIMENEZ-Hiral Blanco Audri, RN RN aa5 Milo Seals, Katarzyna Garcia RN, GERARDO RN tl2
[2019-06-08] MEDS ORDERED: HYDROCODONE/APAP 10/325 TAB ONE (19:54)
[2019-06-08 20:08] VITALS: TEMP 98.1; O2SAT 97
[2019-06-08 20:09] VITALS: BP 152/102
== END 2019-06-08 19:49 | disposition home or self-care (01) ==
LOC: ER 16:23
PROC: 0JQN0ZZ Repair Right Lower Leg Subcutaneous Tissue and Fascia, Open Approach (ICD-10-PCS; principal; 2019-06-08)
DX: S81.811A Laceration without foreign body, right lower leg, initial encounter (principal); W19.XXXA Unspecified fall, initial encounter; Y93.01 Activity, walking, marching and hiking; Y92.89 Other specified places as the place of occurrence of the external cause; Z23 Encounter for immunization; Z72.0 Tobacco use; I10 Essential (primary) hypertension
CPT/HCPCS: 90471; 90714; 99283

== ENCOUNTER 2019-09-07 09:21 | Observation (INO) | payer OTHER ==
[2019-09-07] MEDS ORDERED: ALBUTEROL 2.5 MG/3 ML NEB SOL ONE ×2 (09:41→12:41)
[2019-09-07] MEDS ORDERED: METHYLPREDNISOLONE 125 MG INJ ONE (09:41)
[2019-09-07] MEDS ORDERED: IPRATROPIUM BROM 0.5MG/2.5ML ONE (09:41)
[2019-09-07] MEDS ORDERED: Levofloxacin500mg IV 500 MG/100 ML BAG IV ONE (09:42)
[2019-09-07] MEDS ORDERED: NA CHLORIDE 0.9% 1,000 ML ONE (09:42)
[2019-09-07 10:02] LABS: Basophils % 0.7 % (0-1.3); Lymphocytes % 15.7 % (15.3-44.8); MPV 6.8 fL (7.6-11.3); RBC Red Blood Cell Count 4.78 M/uL (4.33-5.43)
[2019-09-07 10:03] LABS: Protime INR 1.07
[2019-09-07] MEDS ORDERED: predniSONE 20 MG TAB ONE (10:10)
[2019-09-07 10:38] LABS: ALT/SGPT 34 U/L (12-78); AST/SGOT 25 U/L (15-37); Albumin 4.4 g/dL (3.4-5.0); Alkaline Phosphatase 70 U/L (45-117); BUN Blood Urea Nitrogen 12 mg/dL (7-18); Bicarbonate 28 mmol/L (21-32); Bilirubin Direct 0.2 mg/dL (0-0.2); Bilirubin Total 0.7 mg/dL (0.2-1.0); Glucose Level 122 mg/dL (74-106); Magnesium 2.4 mg/dL (1.8-2.4); NT PRO-BNP 16 pg/mL (<125); Potassium 4.1 mmol/L (3.5-5.1); Protein, Total 7.7 g/dL (6.4-8.2); Sodium Level 143 mmol/L (136-145); Troponin (Emerg Dept Use Only) < 0.02 ng/mL (0.0-0.045)
--- NOTE | 2019-09-07 10:52 | EDPHYS ---
Physician Documentation [facility] Name: Zane Dave Age: 68 yrs Sex: Male : 1950 Arrival Date: 09/07/2019 Time: 09:22 Bed 5 Private MD: Warren Blackman E ED Physician Levi Galindo HPI: 09/07 10:13 This 68 yrs old Male presents to ER via Ambulatory with complaints of COPD rica Exacerbation. 10:13 The patient has shortness of breath at rest, with light activity. Onset: The rica symptoms/episode began/occurred 3 day(s) ago. Duration: The symptoms are continuous, and are steadily getting worse. The patient's shortness of breath has no apparent modifying factors. The patient or guardian reports airway noise, cough, difficulty breathing. Associated signs and symptoms: The patient has no apparent associated signs or symptoms. Severity of symptoms: At their worst the symptoms were mild moderate in the emergency department the symptoms are unchanged. Historical: - Allergies: 09:25 No Known Drug Allergies; tw2 - Home Meds: 09:25 prednisone 5 mg Oral tab once daily [Active]; amlodipine 10 mg tab 1 tab once daily tw2 [Active]; albuterol sulfate 2.5 mg /3 mL (0.083 %) Inhl nebu 3 mL 3 times per day [Active]; lisinopril Oral [Active]; - PMHx: 09:25 Asthma; COPD; Hypertension; tw2 - PSHx: 09:25 None; tw2 - Immunization history:: Adult Immunizations. - Social history:: Smoking status: . - Ebola Screening: : Patient denies travel to an Ebola-affected area in the 21 days before illness onset. - Family history:: not pertinent. ROS: 10:13 Constitutional: Negative for fever, chills, and weight loss, Eyes: Negative for injury, rica pain, redness, and discharge, ENT: Negative for injury, pain, and discharge, Neck: Negative for injury, pain, and swelling, Cardiovascular: Negative for chest pain, palpitations, and edema, Abdomen/GI: Negative for abdominal pain, nausea, vomiting, diarrhea, and constipation, Back: Negative for injury and pain, : Negative for injury, bleeding, discharge, and swelling, MS/Extremity: Negative for injury and deformity, Skin: Negative for injury, rash, and discoloration, Neuro: Negative for headache, weakness, numbness, tingling, and seizure, Psych: Negative for depression, anxiety, suicide ideation, homicidal ideation, and hallucinations, Allergy/Immunology: Negative for hives, rash, and allergies, Endocrine: Negative for neck swelling, polydipsia, polyuria, polyphagia, and marked weight changes, Hematologic/Lymphatic: Negative for swollen nodes, abnormal bleeding, and unusual bruising. 10:13 Respiratory: Positive for cough, shortness of breath, wheezing, inspiratory, expiratory. Exam: 10:13 Constitutional: This is a well developed, well nourished patient who is awake, alert, rica and in no acute distress. Head/Face: Normocephalic, atraumatic. Eyes: Pupils equal round and reactive to light, extra-ocular motions intact. Lids and lashes normal. Conjunctiva and sclera are non-icteric and not injected. Cornea within normal limits. Periorbital areas with no swelling, redness, or edema. ENT: Nares patent. No nasal discharge, no septal abnormalities noted. Tympanic membranes are normal and external auditory canals are clear. Oropharynx with no redness, swelling, or masses, exudates, or evidence of obstruction, uvula midline. Mucous membranes moist. Neck: Trachea midline, no thyromegaly or masses palpated, and no cervical lymphadenopathy. Supple, full range of motion without nuchal rigidity, or vertebral point tenderness. No Meningismus. Chest/axilla: Normal chest wall appearance and motion. Nontender with no deformity. No lesions are appreciated. Cardiovascular: Regular rate and rhythm with a normal S1 and S2. No gallops, murmurs, or rubs. Normal PMI, no JVD. No pulse deficits. Abdomen/GI: Soft, non-tender, with normal bowel sounds. No distension or tympany. No guarding or rebound. No evidence of tenderness throughout. Back: No spinal tenderness. No costovertebral tenderness. Full range of motion. Male : Normal genitalia with no discharge or lesions. Skin: Warm, dry with normal turgor. Normal color with no rashes, no lesions, and no evidence of cellulitis. MS/ Extremity: Pulses equal, no cyanosis. Neurovascular intact. Full, normal range of motion. Neuro: Awake and alert, GCS 15, oriented to person, place, time, and situation. Cranial nerves II-XII grossly intact. Motor strength 5/5 in all extremities. Sensory grossly intact. Cerebellar exam normal. Normal gait. Psych: Awake, alert, with orientation to person, place and time. Behavior, mood, and affect are within normal limits. 10:13 Respiratory: mild respiratory distress is noted, moderate respiratory distress is noted, Respirations: normal, Breath sounds: bronchial sounds, decreased breath sounds, rhonchi, wheezing: inspiratory expiratory 10:46 Musculoskeletal/extremity: DVT Exam: No signs of deep vein thrombosis. no pain, no rica swelling, no tenderness, negative Homans' sign noted on exam, no appreciated bluish discoloration, no erythema, no increased warmth. Vital Signs: 09:29 BP 170 / 90; Pulse 87; Resp 24; Temp 97.7(TE); Pulse Ox 95% on R/A; Weight 102.06 kg; ss Height 6 ft. 1 in. (185.42 cm); Pain 0/10; 10:30 BP 157 / 68; Pulse 73; Resp 20; Pulse Ox 95% on R/A; tw2 11:31 BP 154 / 65; Pulse 71; Resp 17; Pulse Ox 95% on R/A; tw2 12:53 BP 157 / 71; Pulse 72; Resp 18; Pulse Ox 100% on Nebulizer Mask; tw2 13:32 BP 138 / 59; Pulse 75; Resp 24; Pulse Ox 95% on R/A; tw2 14:07 BP 124 / 72; Pulse 71; Resp 19; Pulse Ox 100% on R/A; tw2 09:29 Body Mass Index 29.68 (102.06 kg, 185.42 cm) MDM: 09:32 Patient medically screened. [facility] 10:16 Data reviewed: vital signs, nurses notes, lab test result(s), EKG, radiologic studies, [facility] plain films. 09/07 09:35 Order name: Basic Metabolic Panel; Complete Time: 10:46 [facility] 09/07 09:35 Order name: CBC with Diff; Complete Time: 10:46 [facility] 09/07 09:35 Order name: LFT's; Complete Time: 10:46 [facility] 09/07 09:35 Order name: Magnesium; Complete Time: 10:46 [facility] 09/07 09:35 Order name: NT PRO-BNP; Complete Time: 10:46 [facility] 09/07 09:35 Order name: PT-INR; Complete Time: 10:46 [facility] 09/07 09:35 Order name: Troponin (emerg Dept Use Only); Complete Time: 10:46 [facility] 09/07 09:35 Order name: XRAY Chest (1 view) [facility] 09/07 09:35 Order name: Blood Culture Adult (2) [facility] 09/07 09:35 Order name: EKG; Complete Time: 09:36 [facility] 09/07 09:35 Order name: Cardiac monitoring; Complete Time: 09:40 [facility] 09/07 09:35 Order name: EKG - Nurse/Tech; Complete Time: 09:40 [facility] 09/07 09:35 Order name: IV Saline Lock; Complete Time: 10:01 [facility] 09/07 09:35 Order name: Labs collected and sent; Complete Time: 10: [facility] 09/07 09:35 Order name: O2 Per Protocol; Complete Time: 09:40 [facility] 09/07 09:35 Order name: O2 Sat Monitoring; Complete Time: 10:01 [facility] Administered Medications: 10:00 Drug: levofloxacin 500 mg Volume: 100 ml; Route: IVPB; Infused Over: 60 mins; Site: left antecubital; 11:00 Follow up: Response: No adverse reaction; IV Status: Completed infusion tw2 10:00 Drug: Albuterol - atroVENT (3:1) (2.5 mg - 0.5 mg) 3 ml Route: Nebulizer; 10:07 Follow up: Response: No adverse reaction; Marked relief of symptoms ch 10:00 Drug: NS 0.9% 1000 ml Route: IV; Rate: 75 ml/hr; Site: left antecubital; 14:07 Follow up: IV Status: Infusion continued upon admission tw2 10:01 Drug: SOLU-Medrol 125 mg Route: IVP; Site: left antecubital; 10:07 Follow up: Response: No adverse reaction 10:34 Drug: predniSONE 40 mg Route: PO; aj1 11:31 Follow up: Response: No adverse reaction tw2 12:44 Drug: Albuterol 5 mg Route: Inhalation; tw2 Disposition: 09/07/19 10:50 Hospitalization ordered by Shailesh Boland for Inpatient Admission. Preliminary diagnosis is Chronic obstructive pulmonary disease with (acute) exacerbation. - Bed requested for Telemetry/MedSurg (Inpatient). - Status is Inpatient Admission. tw2 - Condition is Fair. - Problem is new. - Symptoms have improved. UTI on Admission? No Signatures: Dispatcher [employer] EDMS Marybel Sanchez, RN RN Nani Arteaga RN RN aj1 Levi Galindo MD MD cha Wise, Tara RN RN tw2 Smith Quesada RN RN ja1 Corrections: (The following items were deleted from the chart) 13:06 10:50 Hospitalization Ordered by Shailesh Boland MD for Inpatient Admission. Preliminary ja1 diagnosis is Chronic obstructive pulmonary disease with (acute) exacerbation. Bed requested for Telemetry/MedSurg (Inpatient). Status is Inpatient Admission. Condition is Fair. Problem is new. Symptoms have improved. UTI on Admission? No. rica 14:16 13:06 09/07/2019 10:50 Hospitalization Ordered by Shailesh Boland MD for Inpatient tw2 Admission. Preliminary diagnosis is Chronic obstructive pulmonary disease with (acute) exacerbation. Bed requested for Telemetry/MedSurg (Inpatient). Status is Inpatient Admission. Condition is Fair. Problem is new. Symptoms have improved. UTI on Admission? No. ja1
--- NOTE | 2019-09-07 10:57 | RAD REPORT ---
EXAM DESCRIPTION: RAD - Chest Single View - 09/07/2019 10:24 am CLINICAL HISTORY: COPD;Cough Chest pain. COMPARISON: Chest Pa And Lat (2 Views) dated 01/06/2019; Chest Pa And Lat (2 Views) dated 03/02/2018; Ch est Single View dated 02/27/2018; Chest Pa And Lat (2 Views) dated 02/22/2018 FINDINGS: Portable technique limits examination quality. The lungs are emphysematous but grossly clear. The heart is normal in size. No displaced fractures. IMPRESSION: No acute intrathoracic process suspected.
--- NOTE | 2019-09-07 12:11 | EKG ---
Test Date: 2019-09-07 Test Time: 09:32:10 Capacity Management Specialist: OREN MEASUREMENT RESULTS: Intervals: Rate: 77 IN: 158 QRSD: 148 QT: 406 QTc: 459 [place]: P: 56 IN: 158 QRS: 86 T: 53 INTERPRETIVE STATEMENTS: Normal sinus rhythm Right bundle branch block Abnormal ECG Compared to ECG 01/06/2019 13:19:44 No significant changes Electronically Signed On 09-07-19 12:10:33 CDT by Aryan Isidro
[2019-09-07] MEDS ORDERED: ONDANSETRON 4 MG/2 ML VIAL IV PRN (14:16)
[2019-09-07] MEDS: IPRATROPIUM BROM 0.5MG/2.5ML NEB SCH ×4 (14:16→23:25)
[2019-09-07] MEDS: ALBUTEROL 2.5 MG/3 ML NEB SOL NEB SCH ×4 (14:16→23:25)
--- NOTE | 2019-09-07 14:17 | ER ---
Nurse's Notes [facility] Name: Zane Dave Age: 68 yrs Sex: Male : 1950 Arrival Date: 09/07/2019 Time: 09:22 Bed 5 Private MD: Warren Blackman E Diagnosis: Chronic obstructive pulmonary disease with (acute) exacerbation Presentation: 09/07 09:25 Care prior to arrival: None. tw2 09:26 Risk Assessment: Do you want to hurt yourself or someone else? Patient reports no tw2 desire to harm self or others. 09:29 Presenting complaint: Patient states: shortness of breath x 3-4 days that is worse with ss exertion. Transition of care: patient was not received from another setting of care. Onset of symptoms was September 03, 2019. Initial Sepsis Screen: Does the patient meet any 2 criteria? RR > 20 per min. Does the patient have a suspected source of infection? No. Patient's initial sepsis screen is negative. 09:29 Acuity: TABBY 2 ss 09:29 Method Of Arrival: Ambulatory ss Historical: - Allergies: 09:25 No Known Drug Allergies; tw2 - Home Meds: 09:25 prednisone 5 mg Oral tab once daily [Active]; amlodipine 10 mg tab 1 tab once daily tw2 [Active]; albuterol sulfate 2.5 mg /3 mL (0.083 %) Inhl nebu 3 mL 3 times per day [Active]; lisinopril Oral [Active]; - PMHx: 09:25 Asthma; COPD; Hypertension; tw2 - PSHx: 09:25 None; tw2 - Immunization history:: Adult Immunizations. - Social history:: Smoking status: . - Ebola Screening: : Patient denies travel to an Ebola-affected area in the 21 days before illness onset. - Family history:: not pertinent. Screenin:23 Abuse screen: Denies threats or abuse. Nutritional screening: No deficits noted. tw2 Tuberculosis screening: No symptoms or risk factors identified. Fall Risk None identified. Assessment: 09:36 General: Appears in no apparent distress. uncomfortable, Behavior is cooperative, ch appropriate for age. Pain: Denies pain. Neuro: No deficits noted. Cardiovascular: Heart tones S1 S2 present Capillary refill < 3 seconds in bilateral fingers Clubbing of nail beds is absent Patient's skin is warm and dry. pt has red blotches and some skin tears scabbed over to edis lower legs. . Respiratory: Reports shortness of breath cough that is air hunger labored breathing Airway is patent Trachea midline Respiratory effort is even, labored, gasping, Breath sounds with rales bilaterally. GI: No signs and/or symptoms were reported involving the gastrointestinal system. Derm: Skin is pink, warm \T\ dry. Musculoskeletal: No signs and/or symptoms reported regarding the musculoskeletal system. 10:30 Reassessment: Patient appears in no apparent distress at this time. Patient and/or tw2 family updated on plan of care and expected duration. Pain level reassessed. Patient is alert, oriented x 3, equal unlabored respirations, skin warm/dry/pink. 11:31 Reassessment: Patient appears in no apparent distress at this time. Patient and/or tw2 family updated on plan of care and expected duration. Pain level reassessed. Patient is alert, oriented x 3, equal unlabored respirations, skin warm/dry/pink. Patient states feeling better. 12:28 Reassessment: Patient appears in no apparent distress at this time. Patient and/or tw2 family updated on plan of care and expected duration. Pain level reassessed. Patient states feeling better. Patient states symptoms have improved. 12:53 Reassessment: Patient appears in no apparent distress at this time. Patient and/or tw2 family updated on plan of care and expected duration. Pain level reassessed. Patient is alert, oriented x 3, equal unlabored respirations, skin warm/dry/pink. Dr. Boland hospitalist at bedside at this time. 13:33 Reassessment: Patient appears in no apparent distress at this time. Patient and/or tw2 family updated on plan of care and expected duration. Pain level reassessed. Patient is alert, oriented x 3, equal unlabored respirations, skin warm/dry/pink. 14:08 Reassessment: Patient appears in no apparent distress at this time. tw2 Vital Signs: 09:29 BP 170 / 90; Pulse 87; Resp 24; Temp 97.7(TE); Pulse Ox 95% on R/A; Weight 102.06 kg; ss Height 6 ft. 1 in. (185.42 cm); Pain 0/10; 10:30 BP 157 / 68; Pulse 73; Resp 20; Pulse Ox 95% on R/A; tw2 11:31 BP 154 / 65; Pulse 71; Resp 17; Pulse Ox 95% on R/A; tw2 12:53 BP 157 / 71; Pulse 72; Resp 18; Pulse Ox 100% on Nebulizer Mask; tw2 13:32 BP 138 / 59; Pulse 75; Resp 24; Pulse Ox 95% on R/A; tw2 14:07 BP 124 / 72; Pulse 71; Resp 19; Pulse Ox 100% on R/A; tw2 09:29 Body Mass Index 29.68 (102.06 kg, 185.42 cm) ED Course: 09:22 Patient arrived in ED. as 09:22 Warren Blackman MD is Private Physician. as 09:23 Arm band placed on. tw2 09:25 Placed in gown. Bed in low position. Adult w/ patient. airline customer service agent on. Pulse ox on. tw2 NIBP on. 09:28 Marybel Sanchez RN is Primary Nurse. ch 09:30 Triage completed. ss 09:32 Levi Galindo MD is Attending Physician. rica 09:36 Door closed. Noise minimized. Lights dimmed. Warm blanket given. ch 09:36 No provider procedures requiring assistance completed. ch 09:37 EKG done, by low voltage technician. reviewed by Levi Galindo MD. at1 09:40 Inserted saline lock: 20 gauge in left antecubital area, using aseptic technique. tw2 ,using aseptic technique. per GERARDO Bee Blood collected. 10:01 XRAY Chest (1 view) Sent. ch 10:02 X-ray completed. Portable x-ray completed in exam room. Patient tolerated procedure jb2 well. 10:04 XRAY Chest (1 view) In Process Unspecified. EDMS 10:50 Shailesh Boland MD is Hospitalizing Provider. rica 13:36 Awaiting: report to floor nurse at this time. unsuccessful attempt to call report at tw2 this time, GERARDO Gama unavailable. 14:08 Patient admitted, IV remains in place. tw2 Administered Medications: 10:00 Drug: levofloxacin 500 mg Volume: 100 ml; Route: IVPB; Infused Over: 60 mins; Site: left antecubital; 11:00 Follow up: Response: No adverse reaction; IV Status: Completed infusion tw2 10:00 Drug: Albuterol - atroVENT (3:1) (2.5 mg - 0.5 mg) 3 ml Route: Nebulizer; 10:07 Follow up: Response: No adverse reaction; Marked relief of symptoms 10:00 Drug: NS 0.9% 1000 ml Route: IV; Rate: 75 ml/hr; Site: left antecubital; 14:07 Follow up: IV Status: Infusion continued upon admission tw2 10:01 Drug: SOLU-Medrol 125 mg Route: IVP; Site: left antecubital; 10:07 Follow up: Response: No adverse reaction 10:34 Drug: predniSONE 40 mg Route: PO; aj1 11:31 Follow up: Response: No adverse reaction tw2 12:44 Drug: Albuterol 5 mg Route: Inhalation; tw2 Outcome: 10:50 Decision to Hospitalize by Provider. [facility] 14:07 Admitted to Med/surg accompanied by tech, via wheelchair, room 408, with chart, Report tw2 called to Lanette<RN 14:07 Condition: stable 14:07 Instructed on the need for admit. 14:16 Patient left the ED. tw2 Signatures: Dispatcher [employer] EDMS Marybel Sanchez RN RN ch Johnson, Angela, RN RN aj1 Levi Galindo MD MD cha Buechter, Jesse jb2 Karla Mcqueen Shelby, RN RN ss Irish Huizar, acoustical engineer EKG Tat1 Marilee Almanza RN RN tw2 Corrections: (The following items were deleted from the chart) : 09:29 Presenting complaint: Patient states: shortness of breath x 3-4 days that is ss worse with exertion ss 09: 09:29 Initial Sepsis Screen: Does the patient meet any 2 criteria? RR > 20 per min. HR ss > 90 bpm. Does the patient have a suspected source of infection? No. Patient's initial sepsis screen is negative. ss
[2019-09-07 14:50] VITALS: BMI 29.7
[2019-09-07 15:58] LABS: Urine Appearance CLEAR; Urine Bilirubin NEGATIVE (NEG); Urine Blood NEGATIVE (NEG); Urine Color YELLOW; Urine Glucose NEGATIVE (NEG); Urine Protein NEGATIVE (NEG)
[2019-09-07] MEDS: ENOXAPARIN 40 MG/0.4 ML SQ SCH (15:58)
[2019-09-07] MEDS: METHYLPREDNISOLONE 40 MG INJ IV SCH (15:59)
[2019-09-07 16:56] LABS: Urine Bacteria <20 /HPF (NONE SEEN); Urine Culture Reflex Order NOT NEEDED; Urine RBC <5 /HPF (NONE SEEN)
--- NOTE | 2019-09-07 17:16 | P.HP ---
Certification for Inpatient Patient admitted to: Observation With expected LOS: <2 Midnights Practitioner: I am a practitioner with admitting privileges, knowledge of patient current condition, hospital course, and medical plan of care. Services: Services provided to patient in accordance with Admission requirements found in Title 42 Section 412.3 of the Code of Federal Regulations Patient History Date of Service: 09/07/19 Reason for admission: Shortness of breath History of Present Illness: This is a 68-year-old male with past medical history of COPD and hypertension who presents to the emergency room with shortness of breath. Per patient, he has been having progressively worsening shortness of breath for the past 5 days. This is associated with mild cough and chest tightness. But he denies any other fevers, chills, headache, vision changes, speech changes, GI or complaints. All he does not use any oxygen at home. He is a former smoker, quit 20 years ago. He does use albuterol nebulizers at home, did not help his symptoms this time. Therefore he came to the emergency room. In the ER, blood pressure was 170/90, heart rate was 87, respirations of 24, afebrile at 97.9 and satting 95% on room air. His labs were fairly unremarkable. Chest x-ray was negative for any acute abnormalities. He is provided nebulizer treatments, Levaquin IV fluids and Solu-Medrol in the ER. At the time of my exam, he was alert oriented x3, in no acute distress and hemodynamically stable. She was receiving his breathing treatments in the ER. Allergies No Known Drug Allergies Allergy (Verified 02/05/16 01:06) Unknown No Known Allergies Allergy (Uncoded 02/08/16 05:25) Unknown Home medications list reviewed: Yes Home Medications: Albuterol Sulfate [Albuterol Sulfate 0.083% Neb Soln] 1 aer IH Q2HP PRN Temazepam 1 cap PO BEDTIME 09/07/19 predniSONE [Deltasone*] 10 mg PO BID 09/07/19 - Past Medical/Surgical History Has patient received pneumonia vaccine in the past: Yes Diabetic: No -: COPD -: Asthma -: Hypertension -: Bilateral hand sx -: Tonsilectomy - Family History Mother -: Heart disease, Hypertension, Lung disease, Diabetes Notes: - hx dementia 92 years old Father -: Heart disease, Hypertension, Lung disease, Diabetes Notes: , passed 1994 80 years old COPD Brother -: Heart disease, Hypertension, Lung disease, Cancer Notes: brother , 71 years old lung ca brain ca Sister -: Heart disease, Cancer Notes: ca: leg, varicose veins, brain ca - Social History Smoking Status: Former smoker Alcohol use: Yes CD- Drugs: No Caffeine use: Yes Place of Residence: Home Review of Systems 10-point ROS is otherwise unremarkable Physical Examination - Vital Signs Temperature: 97.7 F Blood Pressure: 124/72 Pulse: 71 Respirations: 19 - Physical Exam General: Alert, In no apparent distress, Oriented x3 HEENT: Atraumatic, PERRLA, Mucous membr. moist/pink, EOMI, Sclerae nonicteric Neck: Supple, 2+ carotid pulse no bruit, No LAD, Without JVD or thyroid abnormality Respiratory: Diminished, Dull, Expiratory wheezes Cardiovascular: Regular rate/rhythm, Normal S1 S2 Gastrointestinal: Normal bowel sounds, No tenderness Musculoskeletal: No tenderness Integumentary: No rashes Neurological: Normal gait, Normal speech, Normal strength at 5/5 x4 extr, Normal tone, Normal affect Lymphatics: No axilla or inguinal lymphadenopathy - Studies Laboratory Data (last 24 hrs) 09/07/19 09:40: PT 12.6 H, INR 1.07 09/07/19 09:40: WBC 6.1, Hgb 15.6, Hct 45.0, Plt Count 226 09/07/19 09:40: Sodium 143, Potassium 4.1, BUN 12, Creatinine 1.22, Glucose 122 H, Magnesium 2.4, Total Bilirubin 0.7, AST 25, ALT 34, Alkaline Phosphatase 70 Assessment and Plan - Problems (Diagnosis) (1) COPD with acute exacerbation Onset Date: 04/16/16 Current Visit: No Status: Acute Plan: -IV steroids, nebulizer treatments -supportive care with oxygen as needed. Will continue to wean as tolerated -no antibiotics needed at this time. Will continue to monitor (2) Chronic use of steroids Current Visit: No Status: Chronic (3) GERD (gastroesophageal reflux disease) Current Visit: No Status: Chronic Plan: Will continue home medications Qualifiers: Esophagitis presence: esophagitis presence not specified Qualified Code(s) : K21.9 - Gastro-esophageal reflux disease without esophagitis (4) Hypertension Onset Date: 04/16/16 Current Visit: No Status: Chronic Plan: Stable, continue home medications Qualifiers: Hypertension type: essential hypertension - Plan DVT prophylaxis: Lovenox GI prophylaxis: Protonix, home medication Diet: Heart healthy Disposition: Admit to floor with tele, pending symptomatic improvement. Anticipate discharge in the next 24-48 hr, once clinically improved - Advance Directives Does patient have a Living Will: No Does patient have a Durable POA for Healthcare: No Time Spent Managing Pts Care (In Minutes): 55
[2019-09-07] MEDS ORDERED: PNEUMOCOCCAL VACCINE 0.5 ML IMVAC ONE (18:00)
[2019-09-07] MEDS ORDERED: INFLUENZA VACCINE (for 3y+) 0.5 ML DOSE IMVAC ONE (18:00)
[2019-09-07] MEDS ORDERED: TEMAZEPAM 15 MG CAP PO PRN (18:30)
[2019-09-07] MEDS ORDERED: TEMAZEPAM PO SCH (21:00)
[2019-09-08] MEDS: METHYLPREDNISOLONE 40 MG INJ IV SCH ×4 (00:20→23:56)
[2019-09-08] MEDS: IPRATROPIUM BROM 0.5MG/2.5ML NEB SCH ×5 (03:25→20:00)
[2019-09-08] MEDS: ALBUTEROL 2.5 MG/3 ML NEB SOL NEB SCH ×5 (03:25→20:00)
[2019-09-08 04:47] LABS: Absolute Lymphocytes (CBC) 0.5 K/uL (0.7-4.9); Basophils % 0.2 % (0-1.3); Hematocrit 42.1 % (39.6-49.0); Lymphocytes % 7.2 % (15.3-44.8); RBC Red Blood Cell Count 4.46 M/uL (4.33-5.43)
[2019-09-08 05:07] LABS: Blood Morphology Comment NOT SEEN (NOT SEEN); Platelet Estimate ADEQ; Urine White Blood Cell Casts OK
[2019-09-08 05:11] LABS: Albumin 3.9 g/dL (3.4-5.0); Bilirubin Total 0.4 mg/dL (0.2-1.0); Potassium 3.9 mmol/L (3.5-5.1)
[2019-09-08] MEDS ORDERED: POTASSIUM CL SA 10 MEQ TAB PO ONE (08:00)
[2019-09-08] MEDS: ENOXAPARIN 40 MG/0.4 ML SQ SCH (08:37)
[2019-09-08] MEDS: POTASS/SODIUM PHOSPHATE 1 PKT POWD.PACK PO SCH ×3 (08:38→12:04)
--- NOTE | 2019-09-08 10:55 | P.PN ---
Subjective Date of Service: 09/08/19 Chief Complaint: Shortness of breath Subjective: Improving Patient seen and examined at bedside. Chart reviewed and case discussed with nursing staff. Patient reports feeling better but not back to baseline breathing kuo. Still complains of getting winded, especially with minial exertion. Review of Systems 10-point ROS is otherwise unremarkable Physical Examination - Vital Signs Temperature: 98.6 F Blood Pressure: 151/72 Pulse: 73 Respirations: 18 Pulse Ox (%): 95 - Physical Exam General: Alert, In no apparent distress, Oriented x3 HEENT: Atraumatic, PERRLA, EOMI Neck: Supple, JVD not distended Respiratory: Expiratory wheezes Cardiovascular: Regular rate/rhythm, Normal S1 S2 Gastrointestinal: Normal bowel sounds, No tenderness Musculoskeletal: No tenderness Integumentary: No rashes Neurological: Normal speech, Normal tone, Normal affect Lymphatics: No axilla or inguinal lymphadenopathy Assessment And Plan - Current Problems (Diagnosis) (1) COPD with acute exacerbation Onset Date: 04/16/16 Current Visit: No Status: Acute Plan: -IV steroids, nebulizer treatments -supportive care with oxygen as needed. Will continue to wean as tolerated -no antibiotics needed at this time. Will continue to monitor (2) Chronic use of steroids Current Visit: No Status: Chronic (3) GERD (gastroesophageal reflux disease) Current Visit: No Status: Chronic Plan: Will continue home medications Qualifiers: Esophagitis presence: esophagitis presence not specified (4) Hypertension Onset Date: 04/16/16 Current Visit: No Status: Chronic Plan: Stable, continue home medications Qualifiers: Hypertension type: essential hypertension - Plan DVT prophylaxis: Lovenox GI prophylaxis: Protonix, home medication Diet: Heart healthy Disposition: pending symptomatic improvement. Anticipate discharge in the next 24hr, once clinically improved
[2019-09-08] MEDS ORDERED: INFLUENZA VACCINE (for 3y+) 0.5 ML DOSE IMVAC ONE (16:00)
[2019-09-09] MEDS: ALBUTEROL 2.5 MG/3 ML NEB SOL NEB SCH ×4 (04:00→11:30)
[2019-09-09] MEDS: IPRATROPIUM BROM 0.5MG/2.5ML NEB SCH ×4 (04:00→11:30)
[2019-09-09] MEDS: METHYLPREDNISOLONE 40 MG INJ IV SCH (09:20)
[2019-09-09] MEDS: ENOXAPARIN 40 MG/0.4 ML SQ SCH (09:20)
[2019-09-09 09:25] VITALS: BP 161/75; TEMP 97
[2019-09-09 11:48] VITALS: O2SAT 94
--- NOTE | 2019-09-09 12:13 | P.SSS ---
Patient History Date of Service: 09/09/19 Reason for admission: Shortness of breath History of Present Illness: This is a 68-year-old male with past medical history of COPD and hypertension who presents to the emergency room with shortness of breath. Per patient, he has been having progressively worsening shortness of breath for the past 5 days. This is associated with mild cough and chest tightness. But he denies any other fevers, chills, headache, vision changes, speech changes, GI or complaints. All he does not use any oxygen at home. He is a former smoker, quit 20 years ago. He does use albuterol nebulizers at home, did not help his symptoms this time. Therefore he came to the emergency room. In the ER, blood pressure was 170/90, heart rate was 87, respirations of 24, afebrile at 97.9 and satting 95% on room air. His labs were fairly unremarkable. Chest x-ray was negative for any acute abnormalities. He is provided nebulizer treatments, Levaquin IV fluids and Solu-Medrol in the ER. At the time of my exam, he was alert oriented x3, in no acute distress and hemodynamically stable. She was receiving his breathing treatments in the ER. Allergies No Known Drug Allergies Allergy (Verified 02/05/16 01:06) Unknown No Known Allergies Allergy (Uncoded 02/08/16 05:25) Unknown Home medications list reviewed: Yes Home Medications: Albuterol Sulfate [Albuterol Sulfate 0.083% Neb Soln] 1 aer IH Q2HP PRN Temazepam 1 cap PO BEDTIME 09/07/19 predniSONE [Deltasone*] 10 mg PO BID 09/07/19 Albuterol Neb [Proventil 0.083% Neb Soln] 2.5 mg NEB [id number] #1 amp 09/09/19 Ipratropium Neb [Atrovent*] 0.5 mg NEB [id number] #1 amp 09/09/19 - Past Medical/Surgical History Has patient received pneumonia vaccine in the past: Yes Diabetic: No -: COPD -: Asthma -: Hypertension -: Bilateral hand sx -: Tonsilectomy - Family History Mother -: Heart disease, Hypertension, Lung disease, Diabetes Notes: - hx dementia 92 years old Father -: Heart disease, Hypertension, Lung disease, Diabetes Notes: , 1994 80 years old COPD Brother -: Heart disease, Hypertension, Lung disease, Cancer Notes: brother , 71 years old lung ca brain ca Sister -: Heart disease, Cancer Notes: ca: leg, varicose veins, brain ca - Social History Smoking Status: Former smoker Alcohol use: Yes CD- Drugs: No Caffeine use: Yes Place of Residence: Home Review of Systems 10-point ROS is otherwise unremarkable Physical Examination - Vital Signs Temperature: 97.0 F Blood Pressure: 161/75 Pulse: 71 Respirations: 18 Pulse Ox (%): 91 - Physical Exam General: Alert, In no apparent distress HEENT: Atraumatic, PERRLA, Mucous membr. moist/pink, EOMI, Sclerae nonicteric Neck: Supple, 2+ carotid pulse no bruit, No LAD, Without JVD or thyroid abnormality Respiratory: Clear to auscultation bilaterally, Normal air movement Cardiovascular: Regular rate/rhythm, Normal S1 S2 Gastrointestinal: Normal bowel sounds, No tenderness Musculoskeletal: No tenderness Integumentary: No rashes Neurological: Normal gait, Normal speech, Normal strength at 5/5 x4 extr, Normal tone, Normal affect Lymphatics: No axilla or inguinal lymphadenopathy - Diagnosis (Problem(s)) (1) COPD with acute exacerbation Onset Date: 04/16/16 Current Visit: No Status: Acute (2) Chronic use of steroids Current Visit: No Status: Chronic (3) GERD (gastroesophageal reflux disease) Current Visit: No Status: Chronic Qualifiers: Esophagitis presence: esophagitis presence not specified (4) Hypertension Onset Date: 04/16/16 Current Visit: No Status: Chronic Qualifiers: Hypertension type: essential hypertension Treatment Summary: Patient is admitted with COPD exacerbation. He was provided with IV steroids, nebulizer treatments supportive care with oxygen as needed. He was weaned off of oxygen. He otherwise did well throughout the stay. He remained hemodynamically stable. Prior to discharge, he was off of oxygen, symptoms had resolved and patient was back to baseline respiratory status kuo. He was instructed to follow up with pulmonology as an outpatient. His diagnoses and treatment plan was explained to him, all questions were answered and he verbalized understanding. He was then discharged home in a safe and stable manner. - Disposition Discharge Date: 09/09/19 Disposition: ROUTINE DISCHARGE Condition: GOOD Diet: AHA Activity: Ad simran Time Spent Managing Pts Care (In Minutes): 55
== END 2019-09-09 12:23 | disposition home or self-care (01) ==
LOC: ER 09:21 → ERHOLD 11:38 → 4TH 14:08
PROVIDERS: ADMIT Family Medicine; ATTEND Family Medicine
DX: J44.1 Chronic obstructive pulmonary disease with (acute) exacerbation (principal); I10 Essential (primary) hypertension; K21.9 Gastro-esophageal reflux disease without esophagitis; Z87.891 Personal history of nicotine dependence; Z79.52 Long term (current) use of systemic steroids
CPT/HCPCS: 96365; 96361; 93005; 87040 ×2; 85025 ×2; 81001; 80048; 36415; 83735; 84100; 85610; 80076; 84484; 80053; 83880; 71045; 94640 ×2; 94760 ×4; 96375; 99285; J1650 ×3; J7030; J2930; J2920 ×6; G0378 ×4; J7512

== ENCOUNTER 2020-01-09 12:25 | Emergency (ER) | payer OTHER ==
[2020-01-09] MEDS ORDERED: METHYLPREDNISOLONE 125 MG INJ ONE (13:04)
[2020-01-09] MEDS ORDERED: ALBUTEROL 2.5 MG/3 ML NEB SOL ONE ×2 (13:04→14:59)
[2020-01-09] MEDS ORDERED: IPRATROPIUM BROM 0.5MG/2.5ML ONE ×2 (13:04→14:59)
[2020-01-09 13:17] LABS: Absolute Lymphocytes (CBC) 1.4 K/uL (0.7-4.9); Hematocrit 44.1 % (39.6-49.0); Lymphocytes % 27.3 % (15.3-44.8); MPV 6.7 fL (7.6-11.3); RBC Red Blood Cell Count 4.73 M/uL (4.33-5.43)
[2020-01-09 13:39] LABS: ALT/SGPT 24 U/L (12-78); AST/SGOT 17 U/L (15-37); Albumin 3.9 g/dL (3.4-5.0); Alkaline Phosphatase 84 U/L (45-117); BUN Blood Urea Nitrogen 10 mg/dL (7-18); Bicarbonate 26 mmol/L (21-32); Bilirubin Direct 0.2 mg/dL (0-0.2); Bilirubin Total 0.6 mg/dL (0.2-1.0); Glucose Level 114 mg/dL (74-106); Magnesium 2.1 mg/dL (1.8-2.4); NT PRO-BNP 20 pg/mL (<125); Potassium 3.7 mmol/L (3.5-5.1); Protein, Total 7.3 g/dL (6.4-8.2); Sodium Level 141 mmol/L (136-145); Troponin (Emerg Dept Use Only) < 0.02 ng/mL (0.0-0.045)
--- NOTE | 2020-01-09 13:59 | RAD REPORT ---
EXAM DESCRIPTION: Lola Single View01/09/2020 1:52 pm CLINICAL HISTORY: Chest pain COMPARISON: August 2019 FINDINGS: The lungs are moderately hyperaerated The lungs appear clear of acute infiltrate. The heart is normal size IMPRESSION: COPD without visualization acute abnormality
[2020-01-09 14:17] LABS: Protime INR 1.11
--- NOTE | 2020-01-09 15:16 | ER ---
Nurse's Notes [facility] Name: Zane Dave Age: 69 yrs Sex: Male : 1950 Arrival Date: 01/09/2020 Time: 12:27 Bed 7 Private MD: Diagnosis: Chronic obstructive pulmonary disease with (acute) exacerbation Presentation: 01/09 12:38 Presenting complaint: Patient states: SOB at rest, worst on exertion for about 3-4 ca1 weeks. Pt reports history of COPD. "My chest gets tight when I can't breathe". Transition of care: patient was not received from another setting of care. Onset of symptoms. Risk Assessment: Do you want to hurt yourself or someone else? Patient reports no desire to harm self or others. Initial Sepsis Screen: Does the patient meet any 2 criteria? No. Patient's initial sepsis screen is negative. Does the patient have a suspected source of infection? No. Patient's initial sepsis screen is negative. Care prior to arrival: Med neb given. Albuterol. 12:38 Method Of Arrival: Ambulatory ca1 12:38 Acuity: TABBY 3 ca1 Historical: - Allergies: 12:49 No Known Allergies; ca1 - Home Meds: 12:49 albuterol sulfate 2.5 mg /3 mL (0.083 %) Inhl nebu 3 mL 3 times per day [Active]; ca1 prednisone 5 mg Oral tab once daily [Active]; losartan oral oral [Active]; Restoril Oral [Active]; - PMHx: 12:49 Asthma; COPD; Hypertension; ca1 - PSHx: 12:49 None; ca1 - Immunization history:: Adult Immunizations up to date. - Coronavirus screen:: The patient has NOT traveled to [place], [place], or [place] in the past 14 days. The patient has NOT had contact with known/suspected case of Coronavirus?. - Social history:: Smoking status: Patient/guardian denies using tobacco, the patient reports quitting approximately 20 years ago. - Ebola Screening: : Patient negative for fever greater than or equal to 101.5 degrees Fahrenheit, and additional compatible Ebola Virus Disease symptoms Patient denies exposure to infectious person Patient denies travel to an Ebola-affected area in the 21 days before illness onset No symptoms or risks identified at this time. Screenin:15 Abuse screen: Denies threats or abuse. Denies injuries from another. Nutritional jl7 screening: No deficits noted. Tuberculosis screening: No symptoms or risk factors identified. Fall Risk IV access (20 points). Assessment: 13:00 General: Appears in no apparent distress. uncomfortable, Behavior is calm, cooperative, jl7 appropriate for age. Pain: Denies pain. Pain does not radiate. Pain began gradually. Neuro: Level of Consciousness is awake, alert, obeys commands, Oriented to person, place, time, situation. Cardiovascular: Heart tones present Patient's skin is warm and dry. Respiratory: Airway is patent Respiratory effort is even, unlabored, Respiratory pattern is regular, symmetrical, Breath sounds with wheezes bilaterally. Derm: Skin is pink, warm \\T\\ dry. 14:00 Reassessment: Patient appears in no apparent distress at this time. Patient and/or jl7 family updated on plan of care and expected duration. Pain level reassessed. Patient is alert, oriented x 3, equal unlabored respirations, skin warm/dry/pink. Patient states feeling better. Patient states symptoms have improved. 14:55 Reassessment: Patient appears in no apparent distress at this time. No changes from jl7 previously documented assessment. Patient and/or family updated on plan of care and expected duration. Pain level reassessed. Patient is alert, oriented x 3, equal unlabored respirations, skin warm/dry/pink. Vital Signs: 12:49 BP 133 / 85; Pulse 77; Resp 10; Temp 97.9(O); Pulse Ox 96% on R/A; Weight 108.86 kg ca1 (R); Height 6 ft. 1 in. (185.42 cm) (R); Pain 1/10; 13:15 BP 144 / 66; Pulse 67; Resp 21 S; Pulse Ox 98% on R/A; jl7 14:02 BP 128 / 55; Pulse 68; Resp 21; Pulse Ox 96% ; jl7 15:01 BP 141 / 70; Pulse 70; Resp 19; Pulse Ox 100% on Nebulizer Mask; jl7 12:49 Body Mass Index 31.66 (108.86 kg, 185.42 cm) ca1 ED Course: 12:27 Patient arrived in ED. rg4 12:40 Triage completed. ca1 12:43 Niko Lucero RN is Primary Nurse. jl7 12:44 Jose Cobb [facility]. jr8 12:44 Levi Galindo MD is Attending Physician. jr8 12:49 Arm band placed on right wrist. ca1 13:10 Initial lab(s) drawn, by me, sent to lab. Inserted saline lock: 22 gauge in right jl7 wrist, using aseptic technique. Blood collected. 13:15 Patient has correct armband on for positive identification. monitor technician on. Pulse jl7 ox on. NIBP on. Warm blanket given. 13:15 Patient maintains SpO2 saturation greater than 95% on room air. jl7 13:30 EKG done, by interventional technologist. reviewed by Jose MEZA. at1 15:07 Yonatan Frank MD is Referral Physician. jr8 15:11 No provider procedures requiring assistance completed. IV discontinued, intact, jl7 bleeding controlled, No redness/swelling at site. Pressure dressing applied. Administered Medications: 13:05 Drug: SOLU-Medrol 125 mg Route: IVP; Site: right wrist; jl7 13:30 Follow up: Response: No adverse reaction jl7 13:05 Drug: Albuterol - atroVENT (3:1) (2.5 mg - 0.5 mg) 3 ml Route: Nebulizer; jl7 13:30 Follow up: Response: No adverse reaction; Wheezing diminished jl7 14:54 Drug: DuoNeb (3:1) (2.5 mg - 0.5 mg) 3 ml Route: Nebulizer; jl7 15:11 Follow up: Response: No adverse reaction jl7 Outcome: 15:08 Discharge ordered by . jr8 15:11 Discharged to home ambulatory, with family. jl7 15:11 Condition: stable 15:11 Discharge instructions given to patient, family, Instructed on discharge instructions, follow up and referral plans. medication usage, Demonstrated understanding of instructions, follow-up care, medications, Prescriptions given X 1. 15:15 Patient left the ED. jl7 Signatures: Jose Cobb PA PA jr8 Irish Huizar, balance wheel hand filer EKG Tat1 Jessa Elliott rg4 Niko Lucero, RN RN jl7 Emilee Best RN RN ca1
--- NOTE | 2020-01-09 15:16 | EDPHYS ---
Physician Documentation [facility] Name: Zane Dave Age: 69 yrs Sex: Male : 1950 Arrival Date: 01/09/2020 Time: 12:27 Bed 7 Private MD: ED Physician Levi Galindo HPI: 01/09 12:57 This 69 yrs old Male presents to ER via Ambulatory with complaints of Chest jr8 Tightness, Breathing Difficulty. 12:57 The patient has shortness of breath at rest. Onset: The symptoms/episode began/occurred jr8 gradually, 3 week(s) ago, and became worse and became persistent. Duration: The symptoms are continuous. The patient's shortness of breath is aggravated by supine position, talking, walking. Associated signs and symptoms: Pertinent positives: chest pain. Severity of symptoms: At their worst the symptoms were moderate in the emergency department the symptoms are unchanged. The patient has experienced similar episodes in the past, several times. The patient has not recently seen a physician. Historical: - Allergies: 12:49 No Known Allergies; ca1 - Home Meds: 12:49 albuterol sulfate 2.5 mg /3 mL (0.083 %) Inhl nebu 3 mL 3 times per day [Active]; ca1 prednisone 5 mg Oral tab once daily [Active]; losartan oral oral [Active]; Restoril Oral [Active]; - PMHx: 12:49 Asthma; COPD; Hypertension; ca1 - PSHx: 12:49 None; ca1 - Immunization history:: Adult Immunizations up to date. - Coronavirus screen:: The patient has NOT traveled to [place], [place], or [place] in the past 14 days. The patient has NOT had contact with known/suspected case of Coronavirus?. - Social history:: Smoking status: Patient/guardian denies using tobacco, the patient reports quitting approximately 20 years ago. - Ebola Screening: : Patient negative for fever greater than or equal to 101.5 degrees Fahrenheit, and additional compatible Ebola Virus Disease symptoms Patient denies exposure to infectious person Patient denies travel to an Ebola-affected area in the 21 days before illness onset No symptoms or risks identified at this time. ROS: 12:57 Eyes: Negative for injury, pain, redness, and discharge, ENT: Negative for injury, jr8 pain, and discharge, Neck: Negative for injury, pain, and swelling, Abdomen/GI: Negative for abdominal pain, nausea, vomiting, diarrhea, and constipation, Back: Negative for injury and pain, MS/Extremity: Negative for injury and deformity, Skin: Negative for injury, rash, and discoloration, Neuro: Negative for headache, weakness, numbness, tingling, and seizure. 12:57 Cardiovascular: Positive for chest pain, Negative for edema, orthopnea, palpitations, paroxysmal nocturnal dyspnea. 12:57 Respiratory: Positive for cough, dyspnea on exertion, shortness of breath, wheezing. Exam: 12:57 Eyes: Pupils equal round and reactive to light, extra-ocular motions intact. Lids and jr8 lashes normal. Conjunctiva and sclera are non-icteric and not injected. Cornea within normal limits. Periorbital areas with no swelling, redness, or edema. ENT: Nares patent. No nasal discharge, no septal abnormalities noted. Tympanic membranes are normal and external auditory canals are clear. Oropharynx with no redness, swelling, or masses, exudates, or evidence of obstruction, uvula midline. Mucous membranes moist. Neck: Trachea midline, no thyromegaly or masses palpated, and no cervical lymphadenopathy. Supple, full range of motion without nuchal rigidity, or vertebral point tenderness. No Meningismus. Cardiovascular: Regular rate and rhythm with a normal S1 and S2. No gallops, murmurs, or rubs. Normal PMI, no JVD. No pulse deficits. Abdomen/GI: Soft, non-tender, with normal bowel sounds. No distension or tympany. No guarding or rebound. No evidence of tenderness throughout. Back: No spinal tenderness. No costovertebral tenderness. Full range of motion. Skin: Warm, dry with normal turgor. Normal color with no rashes, no lesions, and no evidence of cellulitis. MS/ Extremity: Pulses equal, no cyanosis. Neurovascular intact. Full, normal range of motion. Neuro: Awake and alert, GCS 15, oriented to person, place, time, and situation. Cranial nerves II-XII grossly intact. Motor strength 5/5 in all extremities. Sensory grossly intact. Cerebellar exam normal. Normal gait. 12:57 Respiratory: the patient does not display signs of respiratory distress, Respirations: normal, symetrical, no use of accessory muscles, no grunting, no evidence of nasal flaring, no prolonged exhalations, no pursed lip breathing, no retractions, no shallow respirations, no splinting, no tachypnea, Breath sounds: decreased breath sounds, that are mild, are located in both bases, wheezing: expiratory that is moderate, is heard diffusely. 13:18 ECG was reviewed by the Attending Physician. jr8 Vital Signs: 12:49 BP 133 / 85; Pulse 77; Resp 10; Temp 97.9(O); Pulse Ox 96% on R/A; Weight 108.86 kg ca1 (R); Height 6 ft. 1 in. (185.42 cm) (R); Pain 1/10; 13:15 BP 144 / 66; Pulse 67; Resp 21 S; Pulse Ox 98% on R/A; jl7 14:02 BP 128 / 55; Pulse 68; Resp 21; Pulse Ox 96% ; jl7 15:01 BP 141 / 70; Pulse 70; Resp 19; Pulse Ox 100% on Nebulizer Mask; jl7 12:49 Body Mass Index 31.66 (108.86 kg, 185.42 cm) ca1 MDM: 12:44 Patient medically screened. jr8 15:06 Data reviewed: vital signs, nurses notes, lab test result(s), EKG, radiologic studies, jr8 plain films. Data interpreted: Pulse oximetry: on room air is 94 %. Interpretation: acceptable. Counseling: I had a detailed discussion with the patient and/or guardian regarding: the historical points, exam findings, and any diagnostic results supporting the discharge/admit diagnosis, lab results, radiology results, the need for outpatient follow up, a family practitioner, a fabric sourcer, to return to the emergency department if symptoms worsen or persist or if there are any questions or concerns that arise at home. Response to treatment: the patient's symptoms have markedly improved after treatment. ED course: Patient feeling much better. No acute distress at this time. Much less wheezing with more air movement. Will d/c home to f/u with pulmonology. Will increase prednisone for next 5 days . 01/09 12:44 Order name: Basic Metabolic Panel 8 01/09 12:44 Order name: CBC with Diff 8 01/09 12:44 Order name: LFT's 8 01/09 12:44 Order name: Magnesium jr8 01/09 12:44 Order name: NT PRO-BNP 01/09 12:44 Order name: PT-INR 01/09 12:44 Order name: Troponin (emerg Dept Use Only) 01/09 13:22 Order name: CBC with Automated Diff; Complete Time: 13:29 EDMS 01/09 13:39 Order name: Basic Metabolic Panel; Complete Time: 13:55 EDMS 01/09 13:39 Order name: Liver (Hepatic) Function; Complete Time: 13:55 EDMS 10 13:39 Order name: Troponin (Emerg Dept Use Only); Complete Time: 13:55 EDMS 01/09 13:39 Order name: NT PRO-BNP; Complete Time: 13:55 EDMS 01/09 13:39 Order name: Magnesium; Complete Time: 13:55 EDMS 01/09 14:19 Order name: Protime (+INR); Complete Time: 14:28 EDMS 01/09 12:44 Order name: XRAY Chest (1 view) 01/09 12:44 Order name: EKG; Complete Time: 13:18 01/09 12:44 Order name: Cardiac monitoring; Complete Time: 13:11 01/09 12:44 Order name: EKG - Nurse/Tech; Complete Time: 13:16 01/09 12:44 Order name: IV Saline Lock; Complete Time: 13:11 01/09 12:44 Order name: Labs collected and sent; Complete Time: 13:11 01/09 12:44 Order name: O2 Per Protocol; Complete Time: 13:11 01/09 12:44 Order name: O2 Sat Monitoring; Complete Time: 13:11 01/09 14:14 Order name: RAD; Complete Time: 14:17 EDMS EC:18 Rate is 65 beats/min. Rhythm is regular, Normal Sinus Rhythm. QRS [place] is Normal. IN jr8 interval is normal at 166 msec. QRS interval is prolonged at 150 msec. QT interval is normal at 453 msec. No Q waves. T waves are Inverted in leads V1, V2, V3. No ST changes noted. Clinical impression: NSR w/ Non-specific ST/T Changes and RBBB. Interpreted by me. Reviewed by me. Administered Medications: 13:05 Drug: SOLU-Medrol 125 mg Route: IVP; Site: right wrist; jl7 13:30 Follow up: Response: No adverse reaction jl7 13:05 Drug: Albuterol - atroVENT (3:1) (2.5 mg - 0.5 mg) 3 ml Route: Nebulizer; jl7 13:30 Follow up: Response: No adverse reaction; Wheezing diminished jl7 14:54 Drug: DuoNeb (3:1) (2.5 mg - 0.5 mg) 3 ml Route: Nebulizer; jl7 15:11 Follow up: Response: No adverse reaction jl7 Disposition: 16:45 Co-signature as Attending Physician, Levi Galindo MD I agree with the assessment and rica plan of care. Disposition: 01/09/20 15:08 Discharged to Home. Impression: Chronic obstructive pulmonary disease with (acute) exacerbation. - Condition is Stable. - Discharge Instructions: Chronic Obstructive Pulmonary Disease. - Prescriptions for Prednisone 20 mg Oral Tablet - take 3 tablet by ORAL route once daily for 5 days; 15 tablet. - Medication Reconciliation Form, Thank You Letter, Antibiotic Education, Prescription Opioid Use form. - Follow up: Yonatan Frank MD; When: 2 - 3 days; Reason: Recheck today's complaints, Continuance of care, Re-evaluation by your physician. - Problem is new. - Symptoms have improved. Signatures: Dispatcher [employer] EDWA Levi Galindo MD MD cha Roszak, Josh, PA PA jr8 Niko Lucero RN RN jl7 Emilee Best RN RN ca1 Corrections: (The following items were deleted from the chart) 15:15 15:08 01/09/2020 15:08 Discharged to Home. Impression: Chronic obstructive pulmonary jl7 disease with (acute) exacerbation. Condition is Stable. Forms are Medication Reconciliation Form, Thank You Letter, Antibiotic Education, Prescription Opioid Use. Follow up: Yonatan Frank; When: 2 - 3 days; Reason: Recheck today's complaints, Continuance of care, Re-evaluation by your physician. Problem is new. Symptoms have improved. jr8
--- NOTE | 2020-01-09 17:43 | EKG ---
Test Date: 2020-01-09 Test Time: 13:16:47 [employer] Reseller: OREN MEASUREMENT RESULTS: Intervals: Rate: 65 AR: 166 QRSD: 150 QT: 436 QTc: 453 [place]: P: 60 AR: 166 QRS: 88 T: 72 INTERPRETIVE STATEMENTS: Normal sinus rhythm Right bundle branch block Abnormal ECG Compared to ECG 09/07/2019 09:32:10 No significant changes Electronically Signed On 01-09-20 17:42:27 ACCOUNTING GENERALIST by Aryan Isidro
[2020-01-10 00:19] VITALS: TEMP 97.9
[2020-01-10 00:23] VITALS: BP 141/70; O2SAT 100
== END 2020-01-09 15:15 | disposition home or self-care (01) ==
LOC: ER 12:25
DX: J44.1 Chronic obstructive pulmonary disease with (acute) exacerbation (principal); I10 Essential (primary) hypertension
CPT/HCPCS: 93005; 85025; 80048; 36415; 83735; 85610; 80076; 84484; 83880; 71045; 94640; 96374; 99285; J2930

== ENCOUNTER → 2023-12-17 | Emergency (ER) | payer MEDICARE ==
[~2023-12-17] MED LIST: ALBUTEROL 2.5 MG/3 ML NEB SOL ONE; IPRATROPIUM BROM 0.5MG/2.5ML ONE; METHYLPREDNISOLONE 125 MG INJ ONE
--- OUTSIDE RECORDS SUMMARY | 2023-12-17 13:20 | XMS REPORT | Continuity of Care Document ---
Author Name Unknown Address [address] [place] [address] thconnect Address [address] [place] [address] 1 [address] [place] [address] Care Team Providers Care Link Trainer Maintenance Worker Name Role Phone Unavailable Unavailable Unavailable Payers Payer Name Policy Type Policy Number Effective Date Expirati on Date Source [employer] [facility] (MEDICARE REPLACEMENT HMO) [id number] 00:00:00 Encounters Start Date/Time End Date/Time Encounter Type Admission Type Attending [facility] Facility Care Department Encounter ID Source 2022-06-18 08:00:00 2022-06-18 08:00:00 Outpatient [id number] 2022-06-18 00:00:00 2022-06-18 00:00:00 Outpatient [facility] [id number] 2022-06-13 08:18:00 2022-06-13 08:18:00 Outpatient [facility] [id number]
[2023-12-17 14:35] LABS: Absolute Lymphocytes (CBC) 1.4 K/uL (0.7-4.9); Hematocrit 44.7 % (39.6-49.0); Lymphocytes % 22.5 % (15.3-44.8); MCV 92.8 fL (80-100); MPV 6.1 fL (7.6-11.3); Platelets 234 thou/uL (152-406); RBC Red Blood Cell Count 4.81 M/uL (4.33-5.43)
[2023-12-17 14:42] LABS: Protime INR 1.07
[2023-12-17 14:56] LABS: Albumin 3.6 g/dL (3.4-5.0); Bilirubin Direct 0.2 mg/dL (0-0.2); Bilirubin Indirect, Calculated 0.4 mg/dL (0.2-0.8); Bilirubin Total 0.6 mg/dL (0.2-1.0); Magnesium 2.1 mg/dL (1.6-2.4); Protein, Total 7.4 g/dL (6.4-8.2); Troponin High Sensitivity 19.2 pg/mL (<58.9)
--- NOTE | 2023-12-17 15:36 | RAD REPORT ---
EXAM DESCRIPTION: Lola Single View12/17/2023 2:28 pm CLINICAL HISTORY: Shortness breath COMPARISON: 2019 FINDINGS: Lungs are moderately hyperaerated. The lungs appear clear of acute infiltrate. The heart is normal size IMPRESSION: COPD without visualization of an acute abnormality
--- NOTE | 2023-12-17 17:36 | EDPHYS ---
Physician Documentation [facility] Name: Zane Dave Age: 73 yrs Sex: Male : 1950 Arrival Date: 12/17/2023 Time: 13:13 Bed 14 Private MD: Mansoor Lucero ED Physician Levi Galindo HPI: 12/17 13:50 This 73 yrs old Male presents to ER via Ambulatory with complaints of Breathing cp Difficulty. 13:50 The patient has shortness of breath with light activity. cp 13:50 Onset: The symptoms/episode began/occurred 3 week(s) ago. Duration: The symptoms are cp continuous, and are steadily getting worse. Associated signs and symptoms: Pertinent positives: non-productive cough, Pertinent negatives: chest pain, diaphoresis, fever, hemoptysis, vomiting. Severity of symptoms: in the emergency department the symptoms are unchanged despite home interventions. Historical: - Allergies: 13:38 No Known Drug Allergies; iw - PMHx: 13:38 Asthma; COPD; Hypertension; iw - PSHx: 13:38 None; iw - Immunization history:: Adult Immunizations up to date. - Social history:: Smoking status: Patient denies any tobacco usage or history of. ROS: 13:55 Constitutional: Negative for body aches, chills, fever, poor PO intake, cp 13:55 Eyes: Negative for injury, pain, redness, and discharge, cp 13:55 ENT: Negative for drainage from ear(s), ear pain, sore throat, difficulty swallowing, difficulty handling secretions, 13:55 Cardiovascular: Negative for chest pain, edema, palpitations, 13:55 Respiratory: Positive for cough, with no reported sputum, shortness of breath, on exertion. wheezing, 13:55 Abdomen/GI: Negative for abdominal pain, vomiting, diarrhea, constipation, 13:55 Back: Negative for pain at rest, pain with movement, 13:55 Neuro: Negative for altered mental status, dizziness, headache, loss of consciousness, syncope, weakness, 13:55 All other systems are negative, Exam: 14:00 Constitutional: The patient appears in no acute distress, alert, awake, cp non-diaphoretic, non-toxic, well developed, well nourished, 14:00 Head/Face: Normocephalic, atraumatic. cp 14:00 Eyes: Periorbital structures: appear normal, Conjunctiva: normal, no exudate, no injection, Sclera: no appreciated abnormality, Lids and lashes: appear normal, bilaterally, 14:00 ENT: External ear(s): are unremarkable, Nose: is normal, Mouth: Lips: moist, Oral mucosa: pink and intact, moist, Posterior pharynx: Airway: no evidence of obstruction, patent, erythema, is not appreciated, exudate, is not appreciated, 14:00 Neck: ROM/movement: is normal, is supple, without pain, no range of motions limitations, no meningismus, no nuchal rigidity, 14:00 Chest/axilla: Inspection: normal, 14:00 Cardiovascular: Rate: normal, Rhythm: regular, Edema: is not appreciated, JVD: is not appreciated, 14:00 Respiratory: the patient does not display signs of respiratory distress, Respirations: normal, no use of accessory muscles, no retractions, labored breathing, is not present, Breath sounds: decreased breath sounds, that are mild, throughout, stridor, is not appreciated, wheezing: that is mild, is heard diffusely, 14:00 Abdomen/GI: Inspection: abdomen appears normal, Palpation: abdomen is soft and non-tender, in all quadrants, 14:00 Back: pain, is absent, ROM is normal, 14:00 Neuro: Orientation: to person, place \T\ time. Mentation: is normal, Motor: moves all fours, strength is normal, Sensation: is normal, Gait: is steady, 14:18 ECG was reviewed by the Attending Physician. cp Vital Signs: 13:39 BP 167 / 98; Pulse 88; Resp 20; Temp 98; Pulse Ox 95% on R/A; Weight 102.06 kg; Height iw 6 ft. 0 in. ; Pain 8/10; 16:00 BP 147 / 69; Pulse 75; Resp 20; Pulse Ox 96% on R/A; nj1 17:00 BP 185 / 90; Pulse 64; Resp 21; Pulse Ox 97% on R/A; nj1 17:45 BP 173 / 91; Pulse 82; Resp 20; Pulse Ox 95% on R/A; nj1 13:39 Body Mass Index 30.52 (102.06 kg, 182.88 cm) iw 13:39 Pain Scale: Adult iw MDM: 13:38 Patient medically screened. rica 14:00 Differential diagnosis: Bronchitis CHF exacerbation, Chronic Obstructive Pulmonary cp Disease Myocardial Infarction pneumonia, Pneumothorax pulmonary edema, Pulmonary Embolism Unstable Angina. 17:35 Data reviewed: vital signs, nurses notes, lab test result(s), EKG, radiologic studies, cp plain films. 17:35 Consideration of Admission/Observation Escalation of care including cp admission/observation considered. 17:35 I considered the following discharge prescriptions or medication management in the emergency department Medications were administered in the Emergency Department. See MAR. 17:35 Independent interpretation of the following test(s) in the Emergency Department EKG: cp See my EKG interpretation above. Counseling: I had a detailed discussion with the patient and/or guardian regarding the historical points, exam findings, and any diagnostic results supporting the discharge/admit diagnosis, lab results, radiology results, the need for outpatient follow up, a family practitioner, to return to the emergency department if symptoms worsen or persist or if there are any questions or concerns that arise at home. Response to treatment: the patient's symptoms have markedly improved after treatment, and as a result, I will discharge patient. ED course: VSS. Patient resting in exam room. Oxygen sats remain above 90% on RA. Will discharge to home for continued monitoring. 12/17 13:43 Order name: Basic Metabolic Panel; Complete Time: 16:25 12/17 16:26 Interpretation: Normal except: CO2 34; GLUC 118; GFR 73. 12/17 13:43 Order name: CBC with Diff; Complete Time: 16:25 12/17 16:26 Interpretation: Normal except: MPV 6.1; EOSINOPHIL % 7.1. 12/17 13:43 Order name: LFT's; Complete Time: 16:25 12/17 13:43 Order name: Magnesium; Complete Time: 16:25 12/17 13:43 Order name: NT PRO-BNP; Complete Time: 16:25 cp 12/17 13:43 Order name: PT-INR; Complete Time: 16:25 12/17 13:43 Order name: Troponin HS; Complete Time: 16:25 12/17 13:43 Order name: XRAY Chest (1 view); Complete Time: 16:25 12/17 13:43 Order name: EKG; Complete Time: 13:44 12/17 13:43 Order name: Cardiac monitoring; Complete Time: 16:25 12/17 13:43 Order name: EKG - Nurse/Tech; Complete Time: 16:25 12/17 13:43 Order name: IV Saline Lock; Complete Time: 16: 12/17 13:43 Order name: Labs collected and sent; Complete Time: 16: 12/17 13:43 Order name: O2 Per Protocol; Complete Time: 16: 12/17 13:43 Order name: O2 Sat Monitoring; Complete Time: 16:25 EC:18 Rate is 77 beats/min. Rhythm is regular. [place] interval is normal. QRS interval is cp prolonged at 140 msec. QT interval is normal. T waves are Inverted in lead aVR. Interpreted by me. Reviewed by me. Administered Medications: 16:28 Drug: DuoNeb Nebulize (2.5 mg - 0.5 mg) 3 ml Nebulizer once Route: Nebulizer; nj1 17:09 Follow up: Response: No adverse reaction nj1 16:29 Drug: MethylPrednisoLONE IVP 125 mg IVP once Route: IVP; Site: left antecubital; nj1 17:08 Follow up: Response: No adverse reaction nj1 17:52 Not Given (Patient Refused): clonidine0.1 mg PO once nj1 Disposition Summary: 12/17/23 17:36 Discharge Ordered Notes: Location: Home cp Problem: an acute exacerbation cp Symptoms: have improved cp Condition: Stable cp Diagnosis - COPD/ Chronic obstructive pulmonary disease with (acute) exacerbation cp - Hypertensive heart disease without heart failure cp Followup: cp - With: Private Physician - When: 2 - 3 days - Reason: Recheck today's complaints Discharge Instructions: - Discharge Summary Sheet cp - Chronic Obstructive Pulmonary Disease Exacerbation cp Forms: - Medication Reconciliation Form cp - Thank You Letter cp - Antibiotic Education cp - Prescription Opioid Use cp - Patient Portal Instructions cp - Leadership Thank You Letter cp Prescriptions: - ipratropium-albuterol 0.5 mg-3 mg(2.5 mg base)/3 mL Inhalation Solution for Nebulization - nebulize 3 milliliter INHALATION route every 6 hours; 1 unit; Refills: 0, cp Product Selection Permitted - Prednisone 20 mg Oral Tablet - take 2 tablets ORAL route once daily for 5 days; 10 tablet; Refills: 0, Product cp Selection Permitted Signatures: Dispatcher [employer] Levi Morales MD MD cha Williams, Irene, RN RN iw Levi Montgomery PA PA cp Jaco, Norma RN RN nj1
--- NOTE | 2023-12-17 17:36 | ER ---
Nurse's Notes [facility] Name: Zane Dave Age: 73 yrs Sex: Male : 1950 Arrival Date: 12/17/2023 Time: 13:13 Bed 14 Private MD: Mansoor Lucero Diagnosis: COPD/ Chronic obstructive pulmonary disease with (acute) exacerbation;Hypertensive heart disease without heart failure Presentation: 12/17 13:39 Chief complaint: Patient states: SOB for 3 weeks. No fevers. Coronavirus screen: iw Vaccine status: Patient reports being unvaccinated. Client denies travel out of the [place] in the last 14 days. cough unrelated to allergies, difficulty breathing, shortness of breath. Ebola Screen: Patient denies travel to an Ebola-affected area in the 21 days before illness onset. Initial Sepsis Screen: Does the patient meet any 2 criteria? No. Patient's initial sepsis screen is negative. Does the patient have a suspected source of infection? Yes: Productive cough/pneumonia. Risk Assessment: Do you want to hurt yourself or someone else? Patient reports no desire to harm self or others. Onset of symptoms was November 26, 2023. 13:39 Method Of Arrival: Ambulatory iw 13:39 Acuity: TABBY 3 iw Triage Assessment: 13:42 General: Appears uncomfortable, Behavior is calm, cooperative, appropriate for age. iw Pain: Complains of pain in head Pain currently is 5 out of 10 on a pain scale. Quality of pain is described as aching. Neuro: Reports headache. Respiratory: Reports shortness of breath cough that is labored breathing pain with cough Onset: The symptoms/episode began/occurred 2-3 weeks, the patient has moderate shortness of breath. Historical: - Allergies: 13:38 No Known Drug Allergies; iw - PMHx: 13:38 Asthma; COPD; Hypertension; iw - PSHx: 13:38 None; iw - Immunization history:: Adult Immunizations up to date. - Social history:: Smoking status: Patient denies any tobacco usage or history of. Screenin:07 [facility] ED Fall Risk Assessment (Adult) Score/Fall Risk Level 0 - 2 = Low Risk nj1 Oriented to surroundings, Maintained a safe environment, Hourly rounding (assess needs \T\ fall precautionary measures) done. Abuse screen: Denies threats or abuse. Denies injuries from another. Nutritional screening: No deficits noted. Tuberculosis screening: No symptoms or risk factors identified. Assessment: 16:00 General: Appears in no apparent distress. comfortable, Behavior is calm, cooperative, nj1 appropriate for age. 16:00 Neuro: Level of Consciousness is awake, alert, obeys commands, Oriented to person, nj1 place, time, situation. Cardiovascular: Patient's skin is warm and dry. Respiratory: Airway is patent Respiratory effort is even, unlabored. 17:09 Reassessment: Patient appears in no apparent distress at this time. Patient and/or nj1 family updated on plan of care and expected duration. Pain level reassessed. Patient is alert, oriented x 3, equal unlabored respirations, skin warm/dry/pink. 17:45 Reassessment: Patient appears in no apparent distress at this time. Patient and/or nj1 family updated on plan of care and expected duration. Pain level reassessed. Patient is alert, oriented x 3, equal unlabored respirations, skin warm/dry/pink. Vital Signs: 13:39 BP 167 / 98; Pulse 88; Resp 20; Temp 98; Pulse Ox 95% on R/A; Weight 102.06 kg; Height iw 6 ft. 0 in. ; Pain 8/10; 16:00 BP 147 / 69; Pulse 75; Resp 20; Pulse Ox 96% on R/A; nj1 17:00 BP 185 / 90; Pulse 64; Resp 21; Pulse Ox 97% on R/A; nj1 17:45 BP 173 / 91; Pulse 82; Resp 20; Pulse Ox 95% on R/A; nj1 13:39 Body Mass Index 30.52 (102.06 kg, 182.88 cm) iw 13:39 Pain Scale: Adult iw ED Course: 13:19 Patient arrived in ED. mr 13:19 Mansoor Lucero MD is Private Physician. mr 13:30 Levi Montgomery PA is PHCP. cp 13:30 Levi Galindo MD is Attending Physician. cp 13:41 Triage completed. iw 13:41 Arm band placed on. iw 14:30 XRAY Chest (1 view) In Process Unspecified. EDMS 16:00 Gloria Mohan, GERARDO is Primary Nurse. nj1 16:00 Patient has correct armband on for positive identification. Bed in low position. Call nj1 light in reach. Provided Education on: call light, fall precautions. 17:53 No provider procedures requiring assistance completed. IV discontinued, intact, nj1 bleeding controlled. Administered Medications: 16:28 Drug: DuoNeb Nebulize (2.5 mg - 0.5 mg) 3 ml Nebulizer once Route: Nebulizer; nj1 17:09 Follow up: Response: No adverse reaction nj1 16:29 Drug: MethylPrednisoLONE IVP 125 mg IVP once Route: IVP; Site: left antecubital; nj1 17:08 Follow up: Response: No adverse reaction nj1 17:52 Not Given (Patient Refused): clonidine0.1 mg PO once nj1 Medication: 17:55 VIS not applicable for this client. nj1 Outcome: 17:36 Discharge ordered by MD. cp 17:54 Discharged to home ambulatory, nj1 17:54 Condition: stable 17:54 Discharge instructions given to patient, Instructed on discharge instructions, follow up and referral plans. medication usage, Demonstrated understanding of instructions, follow-up care, medications, Prescriptions given X 2, 17:55 Patient left the ED. nj1 Signatures: Dispatcher [employer] EDGA Hiral Jeffrey, Reg Reg mr Carly Asencio RN RN Levi Dash PA PA cp Jaco, Norma, RN RN nj1 Corrections: (The following items were deleted from the chart) 17:53 17:45 Pulse 82bpm; Resp 20bpm; Pulse Ox 95% RA; nj1 nj1
[2023-12-17 19:32] VITALS: TEMP 98
[2023-12-17 19:48] VITALS: BP 173/91; O2SAT 95
--- NOTE | 2023-12-21 17:07 | EKG ---
Test Date: 2023-12-17 Test Time: 14:13:09 Cardiac Nurse Practitioner: JAVON MEASUREMENT RESULTS: Intervals: Rate: 77 CO: 162 QRSD: 140 QT: 402 QTc: 454 [place]: P: 76 CO: 162 QRS: 87 T: 75 INTERPRETIVE STATEMENTS: Normal sinus rhythm Right bundle branch block Abnormal ECG Compared to ECG 01/09/2020 13:16:47 No significant changes Electronically Signed On 12-21-23 16:56:17 PROPOSAL WRITER by Edi Perry
== END ==
LOC: ER 13:13
DX: J44.1 Chronic obstructive pulmonary disease with (acute) exacerbation (principal); I11.9 Hypertensive heart disease without heart failure
CPT/HCPCS: 93005; 85025; 80048; 36415; 83735; 85610; 80076; 84484; 83880; 71045; 94640; 96374; 99284; J7613; J7644; J2930

== ENCOUNTER 2025-03-13 08:19 | Inpatient (IN) | payer MEDICARE ==
--- OUTSIDE RECORDS SUMMARY | 2025-03-13 08:22 | XMS REPORT | Continuity of Care Document ---
Author Name Unknown Address [address] [place] [address] [address] [place] [address] [facility] Address [address] [place] [address]. [address] [place] [address] Care Team Providers Care Strapper Operator Name Role Phone Unavailable Unavailable Unavailable Payers Payer Name Policy Type Policy Number Effective Date Expirati on Date Source [email or web address] [facility] (MEDICARE REPLACEMENT HMO) [id number] 00:00:00 Encounters Start Date/Time End Date/Time Encounter Type Admission Type Attending [facility] Facility Care Department Encounter ID Source 2022-06-18 08:00:00 2022-06-18 08:00:00 Outpatient [id number] 2022-06-18 00:00:00 2022-06-18 00:00:00 Outpatient [facility] [id number] 2022-06-13 08:18:00 2022-06-13 08:18:00 Outpatient [id number]
--- NOTE | 2025-03-13 08:44 | RAD REPORT ---
EXAMINATION: ONE VIEW CHEST XR CLINICAL INDICATION: DYSPNEA TECHNIQUE: Frontal chest projection is submitted. Examination is limited by patient positioning and t echnique. COMPARISON: 12/17/2023 FINDINGS: The lungs are well inflated and clear. The heart is upper limit of normal in size. No displaced fract ures identified. IMPRESSION: No acute intrathoracic abnormalities.
[2025-03-13] MEDS ORDERED: IPRATROPIUM BROM 0.5MG/2.5ML ONE (09:08)
[2025-03-13] MEDS ORDERED: METHYLPREDNISOLONE 125 MG INJ ONE (09:08)
[2025-03-13] MEDS ORDERED: LEVALBUTEROL 1.25 MG/3 ML NEB ONE (09:08)
[2025-03-13 09:29] LABS: Absolute Lymphocytes (CBC) 0.7 K/uL (0.7-4.9); Absolute Monocytes 0.7 K/uL (0.1-1.3); Absolute Neutrophil 5.6 K/uL (1.8-8.0); Basophils % 0.2 % (0-1.3); Eosinophils % 0.3 % (0-4.4); Hematocrit 39.6 % (39.6-49.0); Hemoglobin 13.5 g/dL (13.6-17.9); Lymphocytes % 10.1 % (15.3-44.8); MCH 31.9 pg (27.0-35.0); MCHC 34.1 g/dL (32.0-36.0); MCV 93.6 fL (80-100); MPV 6.5 fL (7.6-11.3); Monocytes % 10.3 % (3.3-12.3); Neutrophils % 79.1 % (41.7-73.7); Platelets 196 thou/uL (152-406); RBC Red Blood Cell Count 4.23 M/uL (4.33-5.43); Red Cell Distribution Width 13.3 % (12.1-15.2)
[2025-03-13 09:33] LABS: PT Prothrombin Time 11.6 SECONDS (10-13.0); PTT, Activated Partial Thromb 27.8 SECONDS (27.2-37.4); Protime INR 1.02
[2025-03-13 09:40] LABS: Albumin 3.4 g/dL (3.4-5.0); Albumin/Globulin Ratio 0.9 (1.1-1.8); Anion Gap 6.6 mEq/L (5.0-15.0); Bilirubin Total 0.4 mg/dL (0.2-1.0); Globulin 3.8 g/dL (2.3-3.5); Potassium 3.6 mEq/L (3.5-5.1); Protein, Total 7.2 g/dL (6.4-8.2)
[2025-03-13 09:44] LABS: Influenza A Ag Negative; Influenza B Ag Negative; SARS-CoV-2 Antigen Rapid Res Negative (Negative)
--- NOTE | 2025-03-13 09:51 | EDPHYS ---
Physician Documentation [facility] Name: Zane Dave Age: 74 yrs Sex: Male : 1950 Arrival Date: 03/13/2025 Time: 08:19 Bed 14 Private MD: ED Physician Surinder Car HPI: 03/13 09:10 This 74 yrs old Male presents to ER via Wheelchair with complaints of Breathing rn Difficulty. 09:10 The patient has shortness of breath at rest, with light activity, during heavy rn activity. Onset: The symptoms/episode began/occurred 2 week(s) ago. Duration: The symptoms are continuous. The patient's shortness of breath is aggravated by exertion, light activity, talking, walking. Associated signs and symptoms: Pertinent positives: productive cough, Pertinent negatives: fever, hemoptysis. Severity of symptoms: At their worst the symptoms were moderate in the emergency department the symptoms are unchanged. The patient has experienced similar episodes in the past. Patient reports 2 weeks of shortness of breath, productive cough. Seen [facility] recently, given antibiotics and steroids and using inhaler without improvement of symptoms. Patient feels worse. Patient feels that this is one of his worst COPD exacerbations to date.. Historical: - Allergies: 08:34 No Known Allergies; ss - PMHx: 08:34 Asthma; COPD; Hypertension; ss - Immunization history:: Adult Immunizations up to date. - Infectious Disease History:: Denies. - Social history:: Smoking status: Patient/guardian denies using tobacco, but has a distant history of tobacco abuse. - Family history:: not pertinent. - Hospitalizations: : No recent hospitalization is reported. ROS: 09:10 Constitutional: Negative for fever, chills, and weight loss, Cardiovascular: Negative rn for chest pain, palpitations, and edema, Respiratory: Positive for cough and shortness of breath Abdomen/GI: Negative for abdominal pain, nausea, vomiting, diarrhea, and constipation, MS/Extremity: Negative for injury and deformity, Neuro: Positive for generalized weakness and malaise Exam: 09:10 Constitutional: This is a well developed, well nourished patient who is awake, alert, rn moderate tachypnea and appears in respiratory distress Head/Face: Normocephalic, atraumatic. ENT: No stridor Cardiovascular: Regular rate and rhythm. No pulse deficits. Respiratory: Wheezing noted bilaterally with moderate tachypnea Neuro: Awake and alert, GCS 15 10:43 ECG was reviewed by the Attending Physician. rn Vital Signs: 08:32 BP 170 / 75; Pulse 96; Resp 26; Temp 98.4(O); Pulse Ox 97% on R/A; Weight 90.72 kg; ss Height 6 ft. 0 in. ; Pain 0/10; 09:00 BP 150 / 73; Pulse 92; Resp 31; Pulse Ox 90% on R/A; ld1 09:10 Pulse Ox 96% on 5 lpm NC; ld1 09:27 BP 143 / 57; Pulse 98; Resp 18; Pulse Ox 97% on 8 lpm Nebulizer Mask; ld1 11:18 BP 130 / 50; Pulse 82; Resp 21; Pulse Ox 96% on 6 lpm NC; ld1 08:32 Body Mass Index 27.12 (90.72 kg, 182.88 cm) ss 08:32 Pain Scale: Adult ss MDM: 08:24 Medical Screening Exam initiated rn 09:49 Differential diagnosis: Chronic Obstructive Pulmonary Disease pneumonia, Pneumothorax rn pulmonary edema. Data reviewed: vital signs, nurses notes, lab test result(s), EKG, radiologic studies, plain films, and as a result, I will admit patient. Consideration of Admission/Observation Patient was admitted/placed on observation. Escalation of care including admission/observation considered. Care significantly affected by the following chronic conditions: Chronic Obstructive Pulmonary Disease. Counseling: I had a detailed discussion with the patient and/or guardian regarding the historical points, exam findings, and any diagnostic results supporting the discharge/admit diagnosis, lab results, radiology results, the need for further work-up and treatment in the hospital. Response to treatment: the patient's symptoms have mildly improved after treatment. 03/13 08:26 Order name: Blood Culture Adult (2) rn 03/13 08:26 Order name: CBC with Diff; Complete Time: 09:48 rn 03/13 08:26 Order name: CMP; Complete Time: 09:48 rn 03/13 08:26 Order name: Lactate w/ 2H reflex if indic.; Complete Time: 09:48 rn 03/13 08:26 Order name: Protime (+inr); Complete Time: 09:48 rn 03/13 08:26 Order name: Ptt, Activated; Complete Time: 09:48 rn 03/13 08:26 Order name: BNP; Complete Time: 09:48 rn 03/13 08:26 Order name: COVID-19 Ag + Flu A+B Ag; Complete Time: 09:48 rn 03/13 09:49 Order name: Ghost Lactate-NO COLLECT Timer; Complete Time: 12:15 EDMS 03/13 08:26 Order name: Chest Single View XRAY; Complete Time: 08:46 rn 03/13 10:49 Order name: CONS Physician Consult EDMS 03/13 08:26 Order name: Accucheck; Complete Time: 09:09 rn 03/13 08:26 Order name: Cardiac monitoring; Complete Time: 09:09 rn 03/13 08:26 Order name: EKG - Nurse/Tech; Complete Time: 09:09 rn 03/13 08:26 Order name: IV Saline Lock - Large Bore; Complete Time: 09:09 rn 03/13 08:26 Order name: Labs collected and sent; Complete Time: 09:09 rn 03/13 08:26 Order name: O2 Per Protocol; Complete Time: 08:29 rn 03/13 08:26 Order name: O2 Sat Monitoring; Complete Time: 08:29 rn 03/13 08:26 Order name: Vital Signs; Complete Time: 09:09 rn EC:43 Rate is 95 beats/min. Rhythm is regular. QRS [place] is Normal. [place] interval is normal. QRS rn interval is prolonged at 136 msec. QT interval is normal. No Q waves. T waves are Normal. No ST changes noted. Clinical impression: NSR w/ Non-specific ST/T Changes. Interpreted by me. Reviewed by me. Administered Medications: 09:20 Drug: MethylPrednisoLONE IVP 125 mg IVP once Route: IVP; Site: left forearm; ld1 10:28 Follow up: Response: No adverse reaction ld1 09:20 Drug: Levalbuterol Inhalation 1.25 mg Inhalation once Route: Inhalation; ld1 10:28 Follow up: Response: No adverse reaction ld1 09:20 Drug: Levalbuterol Inhalation 1.25 mg Inhalation once Route: Inhalation; ld1 10:28 Follow up: Response: No adverse reaction ld1 09:20 Drug: Ipratropium Inhalation Aerosol 0.5 mg Inhalation once Route: Inhalation; ld1 10:29 Follow up: Response: No adverse reaction ld1 10:28 Drug: Rocephin IV 1 grams IV at calculated rate once; Given slow IV push per pharmacy ld1 instructions Route: IV; Rate: calculated rate; Site: left wrist; 10:28 Drug: Zithromax IVPB 500 mg IVPB once over 1 hrs; mix in 250 mL NS Route: IVPB; Infused ld1 Over: 1 hrs; Site: left wrist; Disposition: 09:50 Critical Care:. 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 Total time: 35 rn minutes Signatures: Dispatcher [employer] EDMS Aline Almanzar Roman, MD MD rn Blanchard, Shelby, RN RN Belkis Post RN RN ld1 Corrections: (The following items were deleted from the chart) 08:27 08:26 BLOOD CULTURE*+BA.LAB.BRZ ordered. EDMS EDMS 08:27 08:26 CBC+H.LAB.BRZ ordered. EDMS EDMS 08:27 08:26 COMPREHENSIVE METABOLIC PANEL+C.LAB.BRZ ordered. EDMS EDMS 08:27 08:26 LACTATE+C.LAB.BRZ ordered. EDMS EDMS 08:27 08:26 PROTIME (+INR)+COAG.LAB.BRZ ordered. EDMS EDMS 08:27 08:26 PTT, ACTIVATED+COAG.LAB.BRZ ordered. EDMS EDMS 08:27 08:26 PROBNP+C.LAB.BRZ ordered. EDMS EDMS 08:27 08:26 COVID-19 Ag + Flu A+B Ag+I.LAB.BRZ ordered. EDMS EDMS 08:27 08:27 Chest Single View+RAD.RAD.BRZ ordered. EDMS EDMS 08:35 08:34 Allergies: Aspirin; ss ss 11:00 09:50 rn bd
--- NOTE | 2025-03-13 09:51 | ER ---
Nurse's Notes [facility] Name: Zane Dave Age: 74 yrs Sex: Male : 1950 Arrival Date: 03/13/2025 Time: 08:19 Bed 14 Private MD: Diagnosis: COPD/ Chronic obstructive pulmonary disease with (acute) exacerbation Presentation: 03/13 08:32 Chief complaint: Patient states: SOB x 2 weeks. Pt reports that he was seen at [facility] 2 days ago, given abx for URI. Pt reports he is not feeling any better, and cannot make it to his [address] Frank today. Coronavirus screen: Client denies travel out of the [place] in the last 14 days. Ebola Screen: Patient denies exposure to infectious person. Patient denies travel to an Ebola-affected area in the 21 days before illness onset. Initial Sepsis Screen: Does the patient meet any 2 criteria? No. Patient's initial sepsis screen is negative. Does the patient have a suspected source of infection? No. Patient's initial sepsis screen is negative. Risk Assessment: Do you want to hurt yourself or someone else? Patient reports no desire to harm self or others. Onset of symptoms was February 27, 2025. 08:32 Method Of Arrival: Wheelchair ss 08:32 Acuity: TABBY 2 Triage Assessment: 11:19 General: Appears in no apparent distress. uncomfortable, Behavior is calm, cooperative, ld1 appropriate for age. Pain: Denies pain. EENT: No signs and/or symptoms were reported regarding the EENT system. Neuro: Level of Consciousness is awake, alert, obeys commands, Oriented to person, place, time, situation. Cardiovascular: Capillary refill < 3 seconds Patient's skin is warm and dry. Respiratory: Reports the patient has moderate shortness of breath. Respiratory: Airway is patent Respiratory effort is even, labored, Breath sounds with wheezes bilaterally. Onset: The symptoms/episode began/occurred yesterday. GI: Abdomen is round non-distended. : No signs and/or symptoms were reported regarding the genitourinary system. Derm: No signs and/or symptoms reported regarding the dermatologic system. Musculoskeletal: No signs and/or symptoms reported regarding the musculoskeletal system. Historical: - Allergies: 08:34 No Known Allergies; ss - PMHx: 08:34 Asthma; COPD; Hypertension; ss - Immunization history:: Adult Immunizations up to date. - Infectious Disease History:: Denies. - Social history:: Smoking status: Patient/guardian denies using tobacco, but has a distant history of tobacco abuse. - Family history:: not pertinent. - Hospitalizations: : No recent hospitalization is reported. Screenin:[address] [facility] ED Fall Risk Assessment (Adult) History of falling in the last 3 months, ld1 including since admission No falls in past 3 months (0 pts) Confusion or Disorientation No (0 pts) Intoxicated or Sedated No (0 pts) Impaired Gait No (0 pts) Mobility Assist Device Used No (0 pt) Altered Elimination No (0 pt) Score/Fall Risk Level 0 - 2 = Low Risk Oriented to surroundings, Hourly rounding (assess needs \T\ fall precautionary measures) done. Abuse screen: Denies threats or abuse. Denies injuries from another. Nutritional screening: No deficits noted. Tuberculosis screening: No symptoms or risk factors identified. Assessment: 09:27 General: Appears in no apparent distress. comfortable, Behavior is calm, cooperative, ld1 appropriate for age. Pain: Denies pain. Neuro: Level of Consciousness is awake, alert, obeys commands, Oriented to person, place, time, situation. Cardiovascular: Capillary refill < 3 seconds Patient's skin is warm and dry. Rhythm is sinus rhythm. Respiratory: Airway is patent Respiratory effort is even, unlabored, Breath sounds with wheezes bilaterally. GI: Abdomen is round non-distended. : No signs and/or symptoms were reported regarding the genitourinary system. EENT: No signs and/or symptoms were reported regarding the EENT system. Derm: No signs and/or symptoms reported regarding the dermatologic system. Musculoskeletal: No signs and/or symptoms reported regarding the musculoskeletal system. 10:15 Reassessment: Patient appears in no apparent distress at this time. No changes from ld1 previously documented assessment. Patient and/or family updated on plan of care and expected duration. Pain level reassessed. Patient is alert, oriented x 3, equal unlabored respirations, skin warm/dry/pink. 11:18 Reassessment: Patient appears in no apparent distress at this time. No changes from ld1 previously documented assessment. Patient and/or family updated on plan of care and expected duration. Pain level reassessed. Vital Signs: 08:32 BP 170 / 75; Pulse 96; Resp 26; Temp 98.4(O); Pulse Ox 97% on R/A; Weight 90.72 kg; ss Height 6 ft. 0 in. ; Pain 0/10; 09:00 BP 150 / 73; Pulse 92; Resp 31; Pulse Ox 90% on R/A; ld1 09:10 Pulse Ox 96% on 5 lpm NC; ld1 09:27 BP 143 / 57; Pulse 98; Resp 18; Pulse Ox 97% on 8 lpm Nebulizer Mask; ld1 11:18 BP 130 / 50; Pulse 82; Resp 21; Pulse Ox 96% on 6 lpm NC; ld1 08:32 Body Mass Index 27.12 (90.72 kg, 182.88 cm) ss 08:32 Pain Scale: Adult ss ED Course: 08:23 Patient arrived in ED. al6 08:24 Surinder Car MD is Attending Physician. rn 08:29 Belkis Lorenzana RN is Primary Nurse. ld1 08:34 Triage completed. ss 08:34 Arm band placed on right wrist. ss 08:40 Chest Single View XRAY In Process Unspecified. EDMS 09:00 Missed attempt(s): 20 gauge in left antecubital area. ld1 09:05 Missed attempt(s): 22 gauge in right wrist. Bleeding controlled, band aid applied, ss catheter tip intact. 09:09 COVID-19 Ag + Flu A+B Ag Sent. ld1 09:10 Inserted saline lock: 22 gauge in left forearm, using aseptic technique. Blood ss collected. Flushed with 10 mL NS. 09:27 Blood Culture Adult (2) Sent. ld1 09:27 Lactate w/ 2H reflex if indic. Sent. ld1 09:30 Patient has correct armband on for positive identification. Placed in gown. Bed in low ld1 position. Call light in reach. Side rails up X2. financial brokers on. Pulse ox on. NIBP on. Door closed. Noise minimized. Warm blanket given. 09:30 No provider procedures requiring assistance completed. ld1 09:50 Jimmie Pascal PA is Hospitalizing Provider. rn 11:19 Patient admitted, IV remains in place. ld1 Administered Medications: 09:20 Drug: MethylPrednisoLONE IVP 125 mg IVP once Route: IVP; Site: left forearm; ld1 10:28 Follow up: Response: No adverse reaction ld1 09:20 Drug: Levalbuterol Inhalation 1.25 mg Inhalation once Route: Inhalation; ld1 10:28 Follow up: Response: No adverse reaction ld1 09:20 Drug: Levalbuterol Inhalation 1.25 mg Inhalation once Route: Inhalation; ld1 10:28 Follow up: Response: No adverse reaction ld1 09:20 Drug: Ipratropium Inhalation Aerosol 0.5 mg Inhalation once Route: Inhalation; ld1 10:29 Follow up: Response: No adverse reaction ld1 10:28 Drug: Rocephin IV 1 grams IV at calculated rate once; Given slow IV push per pharmacy ld1 instructions Route: IV; Rate: calculated rate; Site: left wrist; 10:28 Drug: Zithromax IVPB 500 mg IVPB once over 1 hrs; mix in 250 mL NS Route: IVPB; Infused ld1 Over: 1 hrs; Site: left wrist; Medication: 09:30 VIS not applicable for this client. ld1 Outcome: 09:50 Decision to Hospitalize by Provider. rn 11:19 Admitted to Med/surg ld1 11:19 Condition: stable 11:19 Instructed on the need for admit, 12:29 Patient left the ED. ld1 Signatures: Dispatcher [employer] EDMS Surinder Car MD MD rn Blanchard, Shelby, RN RN ss Sims, Lauren, RN RN ld1 Lisa Dang Corrections: (The following items were deleted from the chart) 08:35 08:34 Allergies: Aspirin; [facility]
[2025-03-13] MEDS ORDERED: AZITHROMYCIN 500 MG INJ IVPB ONE (10:22)
[2025-03-13] MEDS ORDERED: CEFTRIAXONE 1000 MG/VIAL ONE (10:22)
[2025-03-13] MEDS ORDERED: NA CHLORIDE 0.9% 250 ML ONE (10:22)
--- NOTE | 2025-03-13 10:43 | P.HP ---
Certification for Inpatient Patient admitted to: Inpatient Practitioner: I am a practitioner with admitting privileges, knowledge of patient current condition, hospital course, and medical plan of care. Services: Services provided to patient in accordance with Admission requirements found in Title 42 Section 412.3 of the Code of Federal Regulations Patient History Date of Service: 03/13/25 Reason for admission: COPD exacerbation History of Present Illness: 74-year-old male with a past medical history of asthma, COPD, hypertension, presents to the emergency room with shortness of breath. He reports shortness of breath started 2 days ago is getting progressively worse. Shortness of breath worse with exertion, shortness of breath worse with talking, he reports associated productive cough, he denies fever, hemoptysis, he reports similar symptoms in the past, he reports recently being discharged from [facility]. He was treated with antibiotics and steroids. He feels like his COPD is getting pro gressively worse. Plan to admit for COPD exacerbation with pulmonary to consult Allergies No Known Drug Allergies Allergy (Verified 02/05/16 01:06) Unknown No Known Allergies Allergy (Uncoded 02/08/16 05:25) Unknown Home Medications: Albuterol Sulfate [Albuterol Sulfate 0.083% Neb Soln] 1 aer IH Q2HP PRN 09/07/19 Temazepam 1 cap PO BEDTIME 09/07/19 predniSONE [Deltasone*] 10 mg PO BID 09/07/19 Albuterol Neb [Proventil 0.083% Neb Soln] 2.5 mg NEB [id number] #1 amp 09/09/19 Ipratropium Neb [Atrovent*] 0.5 mg NEB [id number] #1 amp 09/09/19 - Past Medical/Surgical History Diabetic: No -: COPD -: Asthma -: Hypertension -: Bilateral hand sx -: Tonsilectomy - Family History Mother -: Heart disease, Hypertension, Lung disease, Diabetes Notes: - hx dementia 92 years old Father -: Heart disease, Hypertension, Lung disease, Diabetes Notes: , passed 1994 80 years old COPD Brother -: Heart disease, Hypertension, Lung disease, Cancer Notes: brother , 71 years old lung ca brain ca Sister -: Heart disease, Cancer Notes: ca: leg, varicose veins, brain ca - Social History Alcohol use: Yes CD- Drugs: No Caffeine use: Yes Review of Systems 10-point ROS is otherwise unremarkable Physical Examination - Physical Exam General: Alert, Oriented x3, Mild distress HEENT: Atraumatic, Normocephalic Neck: Supple, 2+ carotid pulse no bruit Respiratory: Normal air movement, Expiratory wheezes, Inspiratory wheezes Cardiovascular: Normal pulses, Regular rate/rhythm, Normal S1 S2 Gastrointestinal: Normal bowel sounds, Soft and benign Musculoskeletal: No swelling, No contractures Integumentary: No breakdown, No significant lesion Neurological: Normal speech, Normal strength at 5/5 x4 extr - Studies Laboratory Data (last 24 hrs) 03/13/25 03/13/25 03/13/25 09:06 09:06 09:06 WBC 7.00 Hgb 13.5 L Hct 39.6 Plt Count 196 PT 11.6 INR 1.02 APTT 27.8 Sodium 138 Potassium 3.6 BUN 22 H Creatinine 1.15 Glucose 142 H Total Bilirubin 0.4 AST 32 ALT 39 Alkaline Phosphatase 100 Assessment and Plan - Problems (Diagnosis) (1) Acute hypoxic respiratory failure Current Visit: Yes Status: Acute (2) COPD with acute exacerbation Onset Date: 04/16/16 Current Visit: No Status: Acute (3) GERD (gastroesophageal reflux disease) Current Visit: No Status: Chronic Qualifiers: Esophagitis presence: esophagitis presence not specified Qualified Code(s): K21.9 - Gastro-esophageal reflux disease without esophagitis (4) On home oxygen therapy Current Visit: No Status: Chronic - Plan Admit to [facility] Acute hypoxic respiratory failure secondary to COPD exacerbation Lactic acidosis Pulmonary consult Steroids, nebs, IV antibiotics, IV fluids O2 titrate sats 90 to 94% Chest x-ray no acute abnormality, Flu COVID-negative, trend cultures Serial lactic Essential hypertension GERD Resume appropriate home meds Full code DVT Lovenox Diet cardiac Discharge Plan: Home - Advance Directives Does patient have a Living Will: No Does patient have a Durable POA for Healthcare: No - Code Status/Comfort Care Code Status: Full Code Critical Care: No Time Spent Managing Pts Care (In Minutes): 55
--- NOTE | 2025-03-13 10:46 | EKG ---
Test Date: 2025-03-13 Test Time: 08:44:01 Vocational Aide: Franco STEINER MEASUREMENT RESULTS: Intervals: Rate: 95 FL: 168 QRSD: 136 QT: 354 QTc: 444 [place]: P: FL: 168 QRS: 143 T: 80 INTERPRETIVE STATEMENTS: Normal sinus rhythm Right bundle branch block Abnormal ECG Compared to ECG 12/17/2023 14:13:09 No significant changes Electronically Signed On 03-13-25 10:45:49 CDT by Zurdo Hayward
[2025-03-13] MEDS ORDERED: ONDANSETRON 4 MG/2 ML VIAL IV PRN (10:53)
[2025-03-13] MEDS: Levofloxacin 750mg IV 750 MG/150 ML BAG IV SCH (11:00)
[2025-03-13] MEDS: METHYLPREDNISOLONE 125 MG INJ IV SCH (13:29)
[2025-03-13] MEDS: NA CHLORIDE 0.9% 1,000 ML IV SCH (13:30)
[2025-03-13] MEDS: ALBUTEROL 2.5 MG/3 ML NEB SOL NEB SCH (14:01)
[2025-03-13] MEDS: IPRATROPIUM BROM 0.5MG/2.5ML NEB SCH (14:01)
[2025-03-14 04:20] LABS: Absolute Lymphocytes (CBC) 0.3 K/uL (0.7-4.9); Absolute Monocytes 0.2 K/uL (0.1-1.3); Absolute Neutrophil 7.4 K/uL (1.8-8.0); Basophils % 0.1 % (0-1.3); Hematocrit 43.3 % (39.6-49.0); Hemoglobin 14.7 g/dL (13.6-17.9); Lymphocytes % 3.2 % (15.3-44.8); MCH 31.9 pg (27.0-35.0); MCHC 33.8 g/dL (32.0-36.0); MCV 94.3 fL (80-100); MPV 6.4 fL (7.6-11.3); Monocytes % 2.5 % (3.3-12.3); Neutrophils % 94.2 % (41.7-73.7); Platelets 206 thou/uL (152-406); RBC Red Blood Cell Count 4.59 M/uL (4.33-5.43); Red Cell Distribution Width 13.5 % (12.1-15.2)
[2025-03-14 04:46] LABS: Anion Gap 3.6 mEq/L (5.0-15.0); Magnesium 2.4 mg/dL (1.6-2.4); Potassium 4.6 mEq/L (3.5-5.1)
[2025-03-14 05:06] LABS: Band Neutrophils 23 % (0-1); Differential Total Cells Count 100; Lymphocytes 4 % (15-42); Monocytes 0 % (0-10); Reactive Lymphocytes 2 %; Segmented Neutrophils 71 % (40-80)
[2025-03-14 05:07] LABS: Blood Morphology Comment NOT SEEN (NOT SEEN); Platelet Estimate ADEQ
[2025-03-14] MEDS: ROFLUMILAST 500 MCG TABLET PO SCH ×2 (09:00→15:32)
[2025-03-14] MEDS: levoFLOXacin 750 MG TAB PO SCH ×2 (09:00→15:32)
[2025-03-14] MEDS: CEFTRIAXONE 1,000 MG in NA CHLORIDE 0.9% 50 ML IVPB SCH (09:34)
[2025-03-14] MEDS: ENOXAPARIN 40 MG/0.4 ML SQ SCH (09:34)
[2025-03-14] MEDS: AZITHROMYCIN 250 MG TAB PO SCH (09:34)
[2025-03-14] MEDS: IPRATROPIUM BROM 0.5MG/2.5ML NEB SCH (10:45)
[2025-03-14] MEDS: ALBUTEROL 2.5 MG/3 ML NEB SOL NEB SCH (10:45)
--- NOTE | 2025-03-14 12:28 | P.CNS ---
Date of Consult: 03/14/25 Reason for Consult: COPD exacerbation Chief Complaint: COPD exacerbation History of Present Illness: Patient is 74 years of age well-known to ma history of severe COPD exacerbation And it appeared in the emergency room Pulmonology consult if not better in the a.m. got sick 2 weeks ago compliant with his inhalers/he was admitted with exacerbation of COPD chest congestion Allergies No Known Drug Allergies Allergy (Verified 02/05/16 01:06) Unknown No Known Allergies Allergy (Uncoded 02/08/16 05:25) Unknown Home Medications: Albuterol Sulfate [Albuterol Sulfate 0.083% Neb Soln] 1 aer IH Q2HP PRN 09/07/19 Temazepam 1 cap PO BEDTIME 09/07/19 predniSONE [Deltasone*] 10 mg PO BID 09/07/19 Albuterol Neb [Proventil 0.083% Neb Soln] 2.5 mg NEB [id number] #1 amp 09/09/19 Ipratropium Neb [Atrovent*] 0.5 mg NEB [id number] #1 amp 09/09/19 - Past Medical/Surgical History Diabetic: No -: COPD -: Asthma -: Hypertension -: Bilateral hand sx -: Tonsilectomy - Family History Mother Medical History: Heart disease, Hypertension, Lung disease, Diabetes Notes: - hx dementia 92 years old Father Medical History: Heart disease, Hypertension, Lung disease, Diabetes Notes: , passed 1994 80 years old COPD Brother Medical History: Heart disease, Hypertension, Lung disease, Cancer Notes: brother , 71 years old lung ca brain ca Sister Medical History: Heart disease, Cancer Notes: ca: leg, varicose veins, brain ca - Social History Smoking Status: Former smoker Alcohol use: Yes CD- Drugs: No Caffeine use: Yes Review of Systems 10-point ROS is otherwise unremarkable General: Weakness Respiratory: Cough, Shortness of Breath Physical Examination Temp Pulse Resp BP Pulse Ox 98.1 F 91 H 24 H 136/64 95 03/14/25 12:00 03/14/25 12:00 03/14/25 12:00 03/14/25 12:00 03/14/25 12:00 General: Alert, Oriented x3 Respiratory: Expiratory wheezes Cardiovascular: No edema, Regular rate/rhythm, Normal S1 S2 Gastrointestinal: Normal bowel sounds, Soft and benign Musculoskeletal: No clubbing, No swelling - Problems (1) COPD with acute exacerbation Onset Date: 04/16/16 Current Visit: No Status: Acute Plan: Patient is 74 years of age admitted with COPD exacerbation chest x-ray shows severe COPD changes labs chemistries reviewed changed to p.o. prednisone add levofloxacin high risk for Pseudomonas lung infection flutter valve every 4 hours add also Daliresp for underlying chronic bronchitis oxygenation satisfactory
--- NOTE | 2025-03-14 16:37 | P.PN ---
Subjective Date of Service: 03/14/25 Chief Complaint: COPD exacerbation Subjective: No chest pain. c/o shortness of breath. No nausea or vomiting. No abdominal pain. No obvious bleeding. Looks comfortable in the bed. Objective: General appearance: Alert and comfortable CVS: Normal S1 and S2 Lungs: Bilateral wheeze present Abdomen: Soft, bowel sounds present, no tenderness Extremities: No lower extremity edema Physical Examination - Vital Signs Temperature: 98.1 F Blood Pressure: 136/64 Pulse: 91 Respirations: 24 Pulse Ox (%): 95 Assessment And Plan - Plan Acute hypoxic respiratory failure secondary to COPD exacerbation Lactic acidosis: resolved Pulmonary consult apprecaited continue Steroids, nebs, and antibiotics continue O2 Flu COVID-negative Essential hypertension GERD cont home meds Plan discussed with patient and nursing staff, discussed with case management team.
[2025-03-14] MEDS: ALBUTEROL 2.5 MG/3 ML NEB SOL NEB PRN (17:20)
[2025-03-14] MEDS: predniSONE 20 MG TAB PO SCH (20:21)
[2025-03-14] MEDS: ACETAMINOPHEN 500 MG TAB PO PRN (21:01)
[2025-03-14] MEDS: hydrOXYzine HCL 25 MG TAB PO ONE (21:01)
[2025-03-15 07:25] LABS: Absolute Lymphocytes (CBC) 0.5 K/uL (0.7-4.9); Absolute Monocytes 0.9 K/uL (0.1-1.3); Absolute Neutrophil 10.8 K/uL (1.8-8.0); Basophils % 0.1 % (0-1.3); Hematocrit 47.2 % (39.6-49.0); Hemoglobin 15.5 g/dL (13.6-17.9); Lymphocytes % 4.1 % (15.3-44.8); MCH 31.6 pg (27.0-35.0); MCHC 32.9 g/dL (32.0-36.0); MPV 6.6 fL (7.6-11.3); Monocytes % 7.3 % (3.3-12.3); Neutrophils % 88.5 % (41.7-73.7); Platelets 180 thou/uL (152-406); RBC Red Blood Cell Count 4.92 M/uL (4.33-5.43); Red Cell Distribution Width 13.8 % (12.1-15.2)
[2025-03-15 07:46] LABS: Anion Gap 8.5 mEq/L (5.0-15.0); Magnesium 2.5 mg/dL (1.6-2.4); Potassium 4.5 mEq/L (3.5-5.1)
[2025-03-15] MEDS: FUROSEMIDE 20 MG/ 2ML VIAL IV SCH (10:38)
[2025-03-15 11:02] LABS: Arterial Blood Carboxyhemoglob 0.9 % (0-1.5); Blood Gas Oxyhemoglobin 96.5 % (94-97); Blood O2 Saturation 98.2 % (92-98.5)
[2025-03-15 11:03] LABS: Blood Gas THB 14.5 g/dl (12-18)
--- NOTE | 2025-03-15 12:07 | P.PN ---
Subjective Date of Service: 03/15/25 Chief Complaint: Hypercapnic respiratory failure Patient was dyspneic no change since admission blood gases shows hypercapnic respiratory failure patient was started on BiPAP Review of Systems General: Weakness Respiratory: Shortness of Breath Physical Examination - Vital Signs Temperature: 97.9 F Blood Pressure: 145/72 Pulse: 84 Respirations: 18 Pulse Ox (%): 95 - Physical Exam General: Alert, Moderate distress Respiratory: Diminished, Expiratory wheezes Cardiovascular: No edema, Regular rate/rhythm, Normal S1 S2 - Studies Microbiology Data (last 24 hrs): 03/13/25 10:00 Sputum Sputum Gram Stain - Final Assessment And Plan - Current Problems (Diagnosis) (1) Acute and chronic respiratory failure ([id number]) Current Visit: No Status: Chronic Plan: Patient has acute on chronic respiratory failure bicarbonate is elevated CO2 is also elevated did not improve despite maximum bronchodilator therapy patient started on BiPAP continue with steroids bronchodilators sputum shows normal jaya continue with present medication he may qualify for home noninvasive ventilator Qualifiers: Respiratory failure complication: hypoxia and hypercapnia Qualified Code(s): J96.21 - Acute and chronic respiratory failure with hypoxia
[2025-03-15] MEDS ORDERED: HYDRALAZINE HCL 20 MG/ML VIAL IV PRN (12:16)
[2025-03-15] MEDS ORDERED: SODIUM CHLORIDE 0.9% 10ML INJ IV PRN (12:18)
--- NOTE | 2025-03-15 12:18 | P.PN ---
Subjective Date of Service: 03/15/25 Chief Complaint: Hypercapnic respiratory failure Subjective: No chest pain. c/o shortness of breath. No nausea or vomiting. No abdominal pain. No obvious bleeding. Looks comfortable in the bed. Objective: General appearance: Alert and comfortable CVS: Normal S1 and S2 Lungs: Bilateral wheeze present Abdomen: Soft, bowel sounds present, no tenderness Extremities: No lower extremity edema Physical Examination - Vital Signs Temperature: 97.9 F Blood Pressure: 145/72 Pulse: 84 Respirations: 18 Pulse Ox (%): 95 - Studies Microbiology Data (last 24 hrs): 03/13/25 10:00 Sputum Sputum Gram Stain - Final Assessment And Plan - Plan Acute hypoxic respiratory failure secondary to COPD exacerbation Lactic acidosis: resolved Pulmonary consult apprecaited continue Steroids, nebs, and antibiotics continue O2 Flu COVID-negative still significant wheezing, hypercapnea on ABG, start Bipap, Tx to ICU Essential hypertension: start lisinopril GERD cont home meds Plan discussed with patient and nursing staff, discussed with case management team.
[2025-03-15] MEDS: PANTOPRAZOLE 40 MG INJ IVP SCH (14:24)
[2025-03-15] MEDS: lisinopriL 20 MG TAB PO SCH (14:24)
[2025-03-15] MEDS: TAMSULOSIN 0.4 MG SR CAP PO SCH (20:32)
[2025-03-16 05:40] LABS: Absolute Lymphocytes (CBC) 0.7 K/uL (0.7-4.9); Absolute Monocytes 0.7 K/uL (0.1-1.3); Absolute Neutrophil 6.1 K/uL (1.8-8.0); Basophils % 0.2 % (0-1.3); Hemoglobin 14.5 g/dL (13.6-17.9); Lymphocytes % 9.6 % (15.3-44.8); MCH 31.8 pg (27.0-35.0); MCHC 33.7 g/dL (32.0-36.0); MCV 94.5 fL (80-100); MPV 6.6 fL (7.6-11.3); Monocytes % 8.8 % (3.3-12.3); Neutrophils % 81.4 % (41.7-73.7); Nucleated Red Blood Cells % 0.1 % (0-0); Platelets 168 thou/uL (152-406); RBC Red Blood Cell Count 4.55 M/uL (4.33-5.43); Red Cell Distribution Width 13.3 % (12.1-15.2)
[2025-03-16 06:07] LABS: Anion Gap 6.6 mEq/L (5.0-15.0); Magnesium 2.3 mg/dL (1.6-2.4); Potassium 4.6 mEq/L (3.5-5.1)
--- NOTE | 2025-03-16 07:28 | ECHO ---
HEIGHT: 6 ft 0 in WEIGHT: 220 lb 0 oz DATE OF STUDY: 03/15/[address]: Yonatan Frank MD 2-DIMENSIONAL: YES M.MODE: YES DOPPLER: YES COLOR FLOW: YES TDS: YES PORTABLE: YES DEFINITY: BUBBLE STUDY: DIAGNOSIS: POSSIBLE CONGESTIVE HEART FAILURE CARDIAC HISTORY: CATHERIZATION: SURGERY: PROSTHETIC VALVE: PACEMAKER: MEASUREMENTS (cm) DIASTOLIC (NORMALS) SYSTOLIC (NORMALS) IVSd 1.1 (0.6-1.2) LA Diam (1.9-4.0) LVEF 79% LVIDd 4.6 (3.5-5.7) LVIDs 2.4 (2.0-3.5) %FS 48% LVPWd 1.1 (0.6-1.2) Ao Diam 2.7 (2.0-3.7) 2 DIMENSIONAL ASSESSMENT: RIGHT ATRIUM: LEFT ATRIUM: RIGHT VENTRICLE: LEFT VENTRICLE: TRICUSPID VALVE: MITRAL VALVE: PULMONIC VALVE: AORTIC VALVE: PERICARDIAL EFFUSION: AORTIC ROOT: LEFT VENTRICULAR WALL MOTION: DOPPLER/COLOR FLOW: COMMENTS: 1. VERY POOR QUALITY ECHOCARDIOGRAM WITH POOR WINDOWS 2. OVERALL LEFT VENTRICULAR EJECTION FRACTION APPEARS NORMAL TECHNOLOGIST: [place], [facility]
--- NOTE | 2025-03-16 11:45 | P.PN ---
Subjective Date of Service: 03/16/25 Chief Complaint: Hypercapnic respiratory failure Subjective: No chest pain. c/o shortness of breath. No nausea or vomiting. No abdominal pain. No obvious bleeding. Looks comfortable in the bed. Objective: General appearance: Alert and comfortable CVS: Normal S1 and S2 Lungs: Bilateral wheeze present,no improvement Abdomen: Soft, bowel sounds present, no tenderness Extremities: No lower extremity edema Physical Examination - Vital Signs Temperature: 96.8 F Blood Pressure: 102/60 Pulse: 84 Respirations: 20 Pulse Ox (%): 92 - Studies Microbiology Data (last 24 hrs): 03/13/25 10:00 Sputum Sputum Gram Stain - Final 03/13/25 10:00 Sputum Culture & Sensitivity - Final Assessment And Plan - Plan 1. Acute hypoxic hypercapnic respiratory failure secondary to COPD exacerbation Lactic acidosis: resolved Pulmonary consult apprecaited continue Steroids (change back to IV), nebs, and antibiotics continue O2 / BiPAP Flu COVID-negative still significant wheezing, hypercapnea on ABG, repeat ABG pending today. Patient is noncompliant with BiPAP, discussed with the patient about need for BiPAP, discussed with nursing staff. 2. Essential hypertension: contt lisinopril 3. GERD PPI Plan discussed with patient and nursing staff, discussed with case management team. 74-year-old patient admitted with acute respiratory failure secondary to COPD exacerbation, he was not improving with maximal treatment on the floor, transferred to ICU for BiPAP, he is noncompliant with BiPAP, discussed with the patient about need for BiPAP, monitor respiratory status closely. Discharge plan depending on clinical progress.
--- NOTE | 2025-03-16 12:07 | P.PN ---
Subjective Date of Service: 03/16/25 Chief Complaint: Hypercapnic respiratory failure Patient will had respiratory failure transferred to the ICU noncompliant with BiPAP he is feeling a little better CO2 has improved Review of Systems General: Weakness Respiratory: Shortness of Breath Physical Examination - Vital Signs Temperature: 97.2 F Blood Pressure: 96/53 Pulse: 89 Respirations: 22 Pulse Ox (%): 93 - Physical Exam General: Alert, Oriented x3 Respiratory: Clear to auscultation bilaterally, Diminished Cardiovascular: No edema, Regular rate/rhythm - Studies Microbiology Data (last 24 hrs): 03/13/25 10:00 Sputum Sputum Gram Stain - Final 03/13/25 10:00 Sputum Culture & Sensitivity - Final Assessment And Plan - Current Problems (Diagnosis) (1) Acute and chronic respiratory failure ([id number]) Current Visit: No Status: Chronic Plan: Patient transferred to the ICU with acute on chronic respiratory failure he has severe COPD noncompliant with BiPAP remained stable echocardiogram normal bicarbonate elevated DC Lasix add Diamox continue with bronchodilators echocardiogram shows normal left ventricular function bicarbonate has increased Qualifiers: Respiratory failure complication: hypoxia and hypercapnia Qualified Code(s): J96.21 - Acute and chronic respiratory failure with hypoxia; J96.22 - Acute and chronic respiratory failure with hypercapnia
[2025-03-16] MEDS: METHYLPREDNISOLONE 40 MG INJ IV SCH (12:15)
[2025-03-16] MEDS: IPRATROPIUM BROM 0.5MG/2.5ML NEB SCH (13:45)
[2025-03-16] MEDS: ALBUTEROL 2.5 MG/3 ML NEB SOL NEB SCH (13:45)
[2025-03-16 14:25] LABS: Blood Gas Oxyhemoglobin 93.8 % (94-97); Blood Gas THB 14.9 g/dl (12-18); Blood O2 Saturation 95.3 % (92-98.5)
[2025-03-16] MEDS: hydrOXYzine HCL 25 MG TAB PO PRN (19:35)
[2025-03-16] MEDS: ACETAZOLAMIDE 500 MG IV IV SCH (20:15)
[2025-03-16] MEDS: WATER FOR INJ,STERILE 10 ML ONE (20:16)
[2025-03-17 06:07] LABS: Absolute Lymphocytes (CBC) 0.4 K/uL (0.7-4.9); Absolute Monocytes 0.3 K/uL (0.1-1.3); Absolute Neutrophil 5.2 K/uL (1.8-8.0); Basophils % 0.2 % (0-1.3); Hematocrit 44.6 % (39.6-49.0); Hemoglobin 15.2 g/dL (13.6-17.9); Lymphocytes % 6.8 % (15.3-44.8); MCH 31.7 pg (27.0-35.0); MCV 93.3 fL (80-100); MPV 6.7 fL (7.6-11.3); Monocytes % 4.9 % (3.3-12.3); Neutrophils % 88.1 % (41.7-73.7); Platelets 181 thou/uL (152-406); RBC Red Blood Cell Count 4.78 M/uL (4.33-5.43); Red Cell Distribution Width 13.2 % (12.1-15.2)
[2025-03-17 06:22] LABS: Anion Gap 8.7 mEq/L (5.0-15.0); Potassium 3.7 mEq/L (3.5-5.1)
[2025-03-17] MEDS: POTASSIUM CL SA 10 MEQ TAB PO ONE (08:05)
[2025-03-17 10:01] LABS: Magnesium 2.4 mg/dL (1.6-2.4); Phosphorus 2.7 mg/dL (2.5-4.9)
--- NOTE | 2025-03-17 11:02 | P.PN ---
Subjective Date of Service: 03/17/25 Chief Complaint: Chronic respiratory failure Patient is doing better on and on invasive ventilator he has chronic respiratory failure Review of Systems General: Weakness Respiratory: Shortness of Breath Physical Examination - Vital Signs Temperature: 98.3 F Blood Pressure: 116/72 Pulse: 99 Respirations: 16 Pulse Ox (%): 93 - Physical Exam General: Alert, Oriented x3 Respiratory: Expiratory wheezes Cardiovascular: No edema, Regular rate/rhythm, Normal S1 S2 - Studies Microbiology Data (last 24 hrs): 03/13/25 10:00 Sputum Sputum Gram Stain - Final 03/13/25 10:00 Sputum Culture & Sensitivity - Final Assessment And Plan - Current Problems (Diagnosis) (1) Chronic respiratory failure Current Visit: Yes Status: Acute Plan: Patient has hypoxic hypercarbic chronic respiratory failure secondary to terminal COPD he is currently doing much better is now stable feeling better stable to be transferred to the floor changed to p.o. prednisone continue with bronchodilators DC lisinopril changed to p.o. Diamox stable to be transferred to the floor noninvasive ventilator has been requested Qualifiers: Respiratory failure complication: hypoxia and hypercapnia Qualified Code(s): J96.11 - Chronic respiratory failure with hypoxia; J96.12 - Chronic respiratory failure with hypercapnia
[2025-03-17] MEDS ORDERED: TEMAZEPAM 15 MG CAP PO PRN (20:40)
[2025-03-17] MEDS: TEMAZEPAM 15 MG CAP PO ONE (21:15)
[2025-03-17] MEDS: predniSONE 20 MG TAB PO SCH (21:15)
[2025-03-18] MEDS: acetaZOLAMIDE 250 MG TAB PO SCH (08:24)
[2025-03-18] MEDS: IPRATROPIUM BROM 0.5MG/2.5ML ONE (19:10)
[2025-03-18] MEDS: ALBUTEROL 2.5 MG/3 ML NEB SOL ONE (19:10)
[2025-03-19] MEDS: ALBUTEROL 2.5 MG/3 ML NEB SOL ONE ×2 (00:19→19:08)
[2025-03-19] MEDS: IPRATROPIUM BROM 0.5MG/2.5ML ONE ×2 (00:19→19:08)
[2025-03-19 07:09] VITALS: BMI 24.9
[2025-03-20] MEDS: ALBUTEROL 2.5 MG/3 ML NEB SOL ONE (01:07)
[2025-03-20] MEDS: IPRATROPIUM BROM 0.5MG/2.5ML ONE (01:07)
--- NOTE | 2025-03-20 03:24 | P.PN ---
Subjective Date of Service: 03/17/25 Patient is clinically doing well. Patient is breathing better. Will go ahead and downgrade to a general medical floor. Continue with nebs, steroids, and antibiotics. Continue with physical therapy and out of bed and ambulate. Working on placement at this time. Review of Systems 10-point ROS is otherwise unremarkable Physical Examination - Vital Signs Temperature: 98.6 F Blood Pressure: 113/62 Pulse: 110 Respirations: 16 Pulse Ox (%): 92 - Physical Exam General: Alert, In no apparent distress, Oriented x3 HEENT: Atraumatic, PERRLA, EOMI Neck: Supple, JVD not distended Respiratory: Diminished, Expiratory wheezes Cardiovascular: Regular rate/rhythm, Normal S1 S2, No murmurs Gastrointestinal: Normal bowel sounds, Soft and benign, Non-distended, No tenderness Musculoskeletal: No clubbing, No tenderness, Swelling Integumentary: No rashes Neurological: Sensation intact, Cranial nerves 3-12 intact - Studies Medications List Reviewed: Yes Assessment & Plan - Problems (Diagnosis) (1) Acute hypoxic respiratory failure Current Visit: Yes Status: Acute (2) COPD with acute exacerbation Onset Date: 04/16/16 Current Visit: No Status: Acute (3) Hypoxia Onset Date: 02/05/16 Current Visit: No Status: Acute (4) Chronic use of steroids Current Visit: No Status: Chronic (5) GERD (gastroesophageal reflux disease) Current Visit: No Status: Chronic Qualifiers: Esophagitis presence: esophagitis presence not specified Qualified Code(s): K21.9 - Gastro-esophageal reflux disease without esophagitis (6) Hypertension Onset Date: 04/16/16 Current Visit: No Status: Chronic Qualifiers: Hypertension type: essential hypertension (7) On home oxygen therapy Current Visit: No Status: Chronic (8) Tobacco abuse Onset Date: 03/01/18 Current Visit: No Status: Chronic - Plan Plan: 1. Patient with acute hypoxic respiratory failure secondary to the COPD exacerbation; continue with nebs, steroids, antibiotics and O2 per protocol. Will continue working with physical therapy and get patient out of bed and ambulated monitor oxygenation. Patient will need to follow up as an outpatient with Pulmonary as well. 2. History of hypertension; resume antihypertensives 3. BPH; resume Flomax 4. History of GERD; continue with PPI 5. Obesity hypoventilation syndrome with hypercapnia; continue with acetazolamide; CPAP support overnight 6. GI/DVT prophylaxis Discharge Plan: Home Plan to discharge in: Greater than 2 days - Advance Directives Does patient have a Living Will: No Does patient have a Durable POA for Healthcare: No - Code Status/Comfort Care Code Status: Full Code Critical Care: No Time Spent Managing PTS Care (In Minutes): 35
--- NOTE | 2025-03-20 03:31 | P.PN ---
Date of Service: 03/18/25 Subjective Patient moved out to general medical floor. Pt ambulated 90ft. Patient's strength is improving. Spoke with family is inpatient and plan is for patient to go home with home health. Strength continues to improve and will go ahead and monitor removed general medical floor for the next couple of days. If he does well her straight continues to improve his oxygenation is stable anticipate will be able to go home once home is arranged. Physical Examination - Vital Signs reviewed - Physical Exam General: Alert, In no apparent distress, Oriented x3 Respiratory: Diminished, Expiratory wheezes Cardiovascular: Regular rate/rhythm, Normal S1 S2, No murmurs Gastrointestinal: Normal bowel sounds, Soft and benign, Non-distended, No tenderness Musculoskeletal: No clubbing, No tenderness, Swelling Integumentary: No rashes Neurological: no focal deficits - Studies Medications List Reviewed: Yes Assessment & Plan - Problems (Diagnosis) (1) Acute hypoxic respiratory failure Current Visit: Yes Status: Acute (2) COPD with acute exacerbation Onset Date: 04/16/16 Current Visit: No Status: Acute (3) Hypoxia Onset Date: 02/05/16 Current Visit: No Status: Acute (4) Chronic use of steroids Current Visit: No Status: Chronic (5) GERD (gastroesophageal reflux disease) Current Visit: No Status: Chronic Qualifiers: Esophagitis presence: esophagitis presence not specified Qualified Code(s): K21.9 - Gastro-esophageal reflux disease without esophagitis (6) Hypertension Onset Date: 04/16/16 Current Visit: No Status: Chronic Qualifiers: Hypertension type: essential hypertension (7) Home oxygen therapy Current Visit: No Status: Chronic (8) Tobacco abuse Onset Date: 03/01/18 Current Visit: No Status: Chronic - Plan Continue plan of care as mentioned below: 1. Patient with acute hypoxic respiratory failure secondary to the COPD exacerbation; continue with nebs, steroids, antibiotics and O2 per protocol. Patient ambulated 90 ft with therapy. He did get short winded afterwards. Patient will need to follow up as an outpatient with Pulmonary as well. 2. History of hypertension; resume antihypertensives 3. BPH; resume Flomax 4. History of GERD; continue with PPI 5. Obesity hypoventilation syndrome with hypercapnia; continue with acetazolamide; CPAP support overnight 6. GI/DVT prophylaxis Discharge Plan: Home Plan to discharge in: Greater than 2 days - Advance Directives Does patient have a Living Will: No Does patient have a Durable POA for Healthcare: No - Code Status/Comfort Care Code Status: Full Code Critical Care: No Time Spent Managing PTS Care (In Minutes): 30
--- NOTE | 2025-03-20 03:32 | P.PN ---
Date of Service: 03/19/25 Subjective Patient is doing well with no new complaints. Patient states he feels much better. Patient denies any new complaints. Patient is working with physical therapy but he has not been able to work with them since Thursday. Will wait for reassessment and arrange for home health. Possible discharge home over the next 48 hours. Physical Examination - Vital Signs reviewed - Physical Exam General: Alert, In no apparent distress, Oriented x3 Respiratory: Diminished, Expiratory wheezes Cardiovascular: Regular rate/rhythm, Normal S1 S2, No murmurs Gastrointestinal: Normal bowel sounds, Soft and benign, Non-distended, No tenderness Musculoskeletal: No clubbing, No tenderness, Swelling Integumentary: No rashes Neurological: no focal deficits - Studies Medications List Reviewed: Yes Assessment & Plan - Problems (Diagnosis) (1) Acute hypoxic respiratory failure Current Visit: Yes Status: Acute (2) COPD with acute exacerbation Onset Date: 04/16/16 Current Visit: No Status: Acute (3) Hypoxia Onset Date: 02/05/16 Current Visit: No Status: Acute (4) Chronic use of steroids Current Visit: No Status: Chronic (5) GERD (gastroesophageal reflux disease) Current Visit: No Status: Chronic Qualifiers: Esophagitis presence: esophagitis presence not specified Qualified Code(s): K21.9 - Gastro-esophageal reflux disease without esophagitis (6) Hypertension Onset Date: 04/16/16 Current Visit: No Status: Chronic Qualifiers: Hypertension type: essential hypertension (7) Home oxygen therapy Current Visit: No Status: Chronic (8) Tobacco abuse Onset Date: 03/01/18 Current Visit: No Status: Chronic - Plan Continue plan of care as mentioned below: 1. Patient with acute hypoxic respiratory failure secondary to the COPD exacerbation; continue with nebs, steroids, antibiotics and O2 per protocol. Patient ambulated 90 ft with therapy. He did get short winded afterwards. Patient will need to follow up as an outpatient with Pulmonary as well. 2. History of hypertension; resume antihypertensives 3. BPH; resume Flomax 4. History of GERD; continue with PPI 5. Obesity hypoventilation syndrome with hypercapnia; continue with acetazolamide; CPAP support overnight 6. GI/DVT prophylaxis Discharge Plan: Home Plan to discharge in: Greater than 2 days - Advance Directives Does patient have a Living Will: No Does patient have a Durable POA for Healthcare: No - Code Status/Comfort Care Code Status: Full Code Critical Care: No Time Spent Managing PTS Care (In Minutes): 30
[2025-03-20 04:59] LABS: Absolute Lymphocytes (CBC) 0.5 K/uL (0.7-4.9); Absolute Monocytes 0.5 K/uL (0.1-1.3); Absolute Neutrophil 6.4 K/uL (1.8-8.0); Basophils % 0.3 % (0-1.3); Hematocrit 43.4 % (39.6-49.0); Lymphocytes % 7.1 % (15.3-44.8); MCH 31.5 pg (27.0-35.0); MCHC 34.5 g/dL (32.0-36.0); MCV 91.5 fL (80-100); MPV 6.6 fL (7.6-11.3); Monocytes % 6.6 % (3.3-12.3); Platelets 240 thou/uL (152-406); RBC Red Blood Cell Count 4.74 M/uL (4.33-5.43)
[2025-03-20 05:08] LABS: Albumin/Globulin Ratio 0.9 (1.1-1.8); Anion Gap 7.2 mEq/L (5.0-15.0); Bilirubin Total 0.3 mg/dL (0.2-1.0); Globulin 3.5 g/dL (2.3-3.5); Potassium 4.2 mEq/L (3.5-5.1); Protein, Total 6.5 g/dL (6.4-8.2)
[2025-03-20 05:31] LABS: Band Neutrophils 4 % (0-1); Differential Total Cells Count 100; Lymphocytes 5 % (15-42); Monocytes 5 % (0-10); Reactive Lymphocytes 4 %; Segmented Neutrophils 82 % (40-80)
[2025-03-20 05:32] LABS: Blood Morphology Comment NOT SEEN (NOT SEEN); Platelet Estimate ADEQ
[2025-03-20] MEDS: METOPROLOL TAR 25 MG TAB PO SCH (06:16)
--- NOTE | 2025-03-21 03:50 | P.PN ---
Date of Service: 03/20/25 Subjective Patient continues to get short of breath upon ambulation.He has improved quite a bit. Working on physical therapy and trying to build his strength up. Arrange for home oxygen. Patient also getting a noninvasive ventilator arranged. Physical Examination - Vital Signs reviewed - Physical Exam General: Alert, In no apparent distress, Oriented x3 Respiratory: Diminished, Expiratory wheezes Cardiovascular: Regular rate/rhythm, Normal S1 S2, No murmurs Gastrointestinal: Normal bowel sounds, Soft and benign, Non-distended, No tenderness Musculoskeletal: No clubbing, No tenderness, Swelling Integumentary: No rashes Neurological: no focal deficits - Studies Medications List Reviewed: Yes Assessment & Plan - Problems (Diagnosis) (1) Acute hypoxic respiratory failure Current Visit: Yes Status: Acute (2) COPD with acute exacerbation Onset Date: 04/16/16 Current Visit: No Status: Acute (3) Hypoxia Onset Date: 02/05/16 Current Visit: No Status: Acute (4) Chronic use of steroids Current Visit: No Status: Chronic (5) GERD (gastroesophageal reflux disease) Current Visit: No Status: Chronic Qualifiers: Esophagitis presence: esophagitis presence not specified Qualified Code(s): K21.9 - Gastro-esophageal reflux disease without esophagitis (6) Hypertension Onset Date: 04/16/16 Current Visit: No Status: Chronic Qualifiers: Hypertension type: essential hypertension (7) Home oxygen therapy Current Visit: No Status: Chronic (8) Tobacco abuse Onset Date: 03/01/18 Current Visit: No Status: Chronic - Plan Continue plan of care as mentioned below: 1. Patient with acute hypoxic respiratory failure secondary to the COPD exacerbation; continue with nebs, steroids, antibiotics and O2 per protocol. Patient Continues to ambulate well and strength has improved although he gets very short of breath. Awaiting for noninvasive ventilator and home oxygen. 2. History of hypertension; resume antihypertensives 3. BPH; resume Flomax 4. History of GERD; continue with PPI 5. Obesity hypoventilation syndrome with hypercapnia; continue with acetazolamide; CPAP support overnight 6. GI/DVT prophylaxis Discharge Plan: Home with HH with PT/OT; will need NIV and O2 Plan to discharge in: Greater than 2 days - Advance Directives Does patient have a Living Will: No Does patient have a Durable POA for Healthcare: No - Code Status/Comfort Care Code Status: Full Code Critical Care: No Time Spent Managing PTS Care (In Minutes): 30
--- NOTE | 2025-03-21 12:40 | P.PN ---
Subjective Date of Service: 03/21/25 Chief Complaint: Chronic respiratory failure Patient is improving doing better and IV approval submitted Review of Systems General: Weakness Respiratory: Shortness of Breath Physical Examination - Vital Signs Temperature: 98.3 F Blood Pressure: 139/80 Pulse: 58 Respirations: 24 Pulse Ox (%): 97 - Physical Exam General: Alert, Oriented x3 Respiratory: Clear to auscultation bilaterally, Diminished Cardiovascular: No edema, Regular rate/rhythm - Studies Medications List Reviewed: Yes Assessment And Plan - Current Problems (Diagnosis) (1) Chronic respiratory failure Current Visit: Yes Status: Acute Plan: Patient admitted with exacerbation of COPD chronic respiratory failure and waiting an IV feeling better labs chemistries all reviewed vital signs oxygenation satisfactory patient has home O2 stable for discharge continue with Diamox and Roflumilast at home Qualifiers: Respiratory failure complication: hypoxia and hypercapnia Qualified Co de(s): J96.11 - Chronic respiratory failure with hypoxia; J96.12 - Chronic respiratory failure with hypercapnia
--- NOTE | 2025-03-21 13:09 | P.PN ---
Subjective Date of Service: 03/21/25 Chief Complaint: Chronic respiratory failure Subjective: No chest pain. shortness of breath better. No nausea or vomiting. No abdominal pain. No obvious bleeding. Looks comfortable in the bed. Objective: General appearance: Alert and comfortable CVS: Normal S1 and S2 Lungs: Bilateral wheeze much better compared with last week, minima wheeze now Abdomen: Soft, bowel sounds present, no tenderness Extremities: No lower extremity edema Physical Examination - Vital Signs Temperature: 98.3 F Blood Pressure: 139/80 Pulse: 58 Respirations: 24 Pulse Ox (%): 97 - Studies Medications List Reviewed: Yes Assessment And Plan - Plan 1. Acute hypoxic hypercapnic respiratory failure secondary to COPD exacerbation Lactic acidosis: resolved Pulmonary consult apprecaited continue Steroids and nebs, DC antibiotics continue O2 Flu COVID-negative 2. Essential hypertension: off lisinopril, on diamox, creat uptrending 3. GERD :PPI Plan discussed with patient and nursing staff, discussed with case management team. 74-year-old patient admitted with acute respiratory failure secondary to COPD exacerbation, he is improving ROSI ashley home with home oxygen soon
[2025-03-22 04:50] LABS: Absolute Lymphocytes (CBC) 0.6 K/uL (0.7-4.9); Absolute Monocytes 0.4 K/uL (0.1-1.3); Absolute Neutrophil 9.1 K/uL (1.8-8.0); Basophils % 0.2 % (0-1.3); Hematocrit 44.2 % (39.6-49.0); Hemoglobin 15.2 g/dL (13.6-17.9); Lymphocytes % 6.1 % (15.3-44.8); MCH 31.7 pg (27.0-35.0); MCHC 34.4 g/dL (32.0-36.0); MPV 6.7 fL (7.6-11.3); Monocytes % 3.6 % (3.3-12.3); Nucleated Red Blood Cells % 0.1 % (0-0); Platelets 257 thou/uL (152-406); Red Cell Distribution Width 13.3 % (12.1-15.2)
[2025-03-22 04:54] LABS: Neutrophils % 90.1 % (41.7-73.7)
[2025-03-22 05:08] LABS: Anion Gap 9.6 mEq/L (5.0-15.0); Potassium 4.6 mEq/L (3.5-5.1)
--- NOTE | 2025-03-22 15:12 | P.PN ---
Subjective Date of Service: 03/22/25 Chief Complaint: Chronic respiratory failure Subjective: No chest pain. shortness of breath better. No nausea or vomiting. No abdominal pain. No obvious bleeding. Looks comfortable in the bed. Objective: General appearance: Alert and comfortable CVS: Normal S1 and S2 Lungs: CTA Bilaterally, no wheeze now Abdomen: Soft, bowel sounds present, no tenderness Extremities: No lower extremity edema Physical Examination - Vital Signs Temperature: 98.2 F Blood Pressure: 110/59 Pulse: 61 Respirations: 18 Pulse Ox (%): 96 - Studies Medications List Reviewed: Yes Assessment And Plan - Plan 1. Acute hypoxic hypercapnic respiratory failure secondary to COPD exacerbation Lactic acidosis: resolved Pulmonary consult apprecaited continue Steroids and nebs, off antibiotics continue O2 Flu COVID-negative 2. Essential hypertension: off lisinopril, on diamox, creat ok, DC lopressor as BP soft 3. GERD :PPI Plan discussed with patient and nursing staff, discussed with case management team. Need home O2 74-year-old patient admitted with acute respiratory failure secondary to COPD exacerbation, he is improving ROSI ashley home with home oxygen when set up
[2025-03-23 07:12] LABS: Absolute Eosinophils 0.1 K/uL (0-0.5); Absolute Lymphocytes (CBC) 1.8 K/uL (0.7-4.9); Absolute Monocytes 0.7 K/uL (0.1-1.3); Absolute Neutrophil 8.1 K/uL (1.8-8.0); Basophils % 0.2 % (0-1.3); Eosinophils % 0.7 % (0-4.4); Hematocrit 40.8 % (39.6-49.0); Hemoglobin 14.2 g/dL (13.6-17.9); MCH 31.9 pg (27.0-35.0); MCHC 34.9 g/dL (32.0-36.0); MCV 91.4 fL (80-100); MPV 6.9 fL (7.6-11.3); Neutrophils % 75.1 % (41.7-73.7); Nucleated Red Blood Cells % 0.2 % (0-0); Platelets 226 thou/uL (152-406); RBC Red Blood Cell Count 4.46 M/uL (4.33-5.43); Red Cell Distribution Width 13.3 % (12.1-15.2)
[2025-03-23 07:28] LABS: Anion Gap 7.5 mEq/L (5.0-15.0); Potassium 3.5 mEq/L (3.5-5.1)
[2025-03-23] MEDS: POTASSIUM CL SA 10 MEQ TAB PO ONE (08:29)
[2025-03-23] MEDS: predniSONE 20 MG TAB PO SCH (08:29)
[2025-03-23 08:51] VITALS: O2SAT 95
--- NOTE | 2025-03-23 10:23 | P.DS ---
Admission Date: 03/13/25 Discharge Date: 03/23/25 Disposition: DC HOME/HOME HEALTH CARE Discharge Condition: GOOD Reason for Admission: Chronic respiratory failure Hospital Course: Discharge diagnosis: 1. Acute hypoxic hypercapnic respiratory failure secondary to COPD exacerbation Lactic acidosis: resolved Pulmonary consult apprecaited given Steroids and nebs, and antibiotics continue O2 Flu COVID-negative 2. Essential hypertension: off lisinopril, on diamox 3. GERD :PPI Plan discussed with patient and nursing staff, discussed with case management team. dc with home O2 Hospital course: 74-year-old patient admitted with acute respiratory failure secondary to COPD exacerbation, he is improving slolwy, when I see the patient he is doing well without any acute problems and feels ready to go home, he is requiring oxygen, discussed with case management team, home oxygen set up, otherwise no other acute issues going on so I am planning to discharge him to go home, follow-up with PCP and pulmonary. Subjective: No chest pain. shortness of breath better. No nausea or vomiting. No abdominal pain. No obvious bleeding. Looks comfortable in the bed. Objective: General appearance: Alert and comfortable CVS: Normal S1 and S2 Lungs: CTA Bilaterally, no wheeze now Abdomen: Soft, bowel sounds present, no tenderness Extremities: No lower extremity edema Vital Signs/Physical Exam: Temp Pulse Resp BP Pulse Ox 97.9 F 76 16 123/62 93 03/23/25 04:00 03/23/25 04:00 03/23/25 04:00 03/23/25 04:00 03/23/25 04:00 Laboratory Data at Discharge: WBC 10.70 thou/uL (4.3-10.9) 03/23/25 06:47 Hgb 14.2 g/dL (13.6-17.9) 03/23/25 06:47 Hct 40.8 % (39.6-49.0) 03/23/25 06:47 Plt Count 226 thou/uL (152-406) 03/23/25 06:47 PT 11.6 SECONDS (10-13.0) 03/13/25 09:06 INR 1.02 03/13/25 09:06 APTT 27.8 SECONDS (27.2-37.4) 03/13/25 09:06 Sodium 141 mEq/L (136-145) 03/23/25 06:47 Potassium 3.5 mEq/L (3.5-5.1) D 03/23/25 06:47 BUN 36 mg/dL (7-18) H 03/23/25 06:47 Creatinine 1.13 mg/dL (0.70-1.30) 03/23/25 06:47 Glucose 112 mg/dL (74-106) H 03/23/25 06:47 Phosphorus 2.7 mg/dL (2.5-4.9) 03/17/25 05:49 Magnesium 2.4 mg/dL (1.6-2.4) 03/17/25 05:49 Total Bilirubin 0.3 mg/dL (0.2-1.0) 03/20/25 04:36 AST 17 U/L (15-37) 03/20/25 04:36 ALT 47 U/L (16-61) 03/20/25 04:36 Alkaline Phosphatase 78 U/L (45-117) 03/20/25 04:36 Home Medications: Albuterol Sulfate [Albuterol Sulfate 0.083% Neb Soln] 1 aer IH Q2HP PRN 09/07/19 Temazepam 7.5 mg PO BEDTIME 09/07/19 predniSONE [Deltasone*] 20 mg PO DAILY 09/07/19 Albuterol Neb [Proventil 0.083% Neb Soln] 2.5 mg NEB [id number] #1 amp 09/09/19 Ipratropium Neb [Atrovent*] 0.5 mg NEB [id number] #1 amp 09/09/19 Tamsulosin [Flomax*] 0.4 mg PO DAILY 03/15/25 Roflumilast [Daliresp*] 500 mcg PO DAILY 30 Days #30 tab 03/21/25 acetaZOLAMIDE [Acetazolamide] 250 mg PO DAILY 30 Days #30 tab 03/21/25 New Medications: acetaZOLAMIDE [Acetazolamide] 250 mg PO DAILY 30 Days #30 tab Roflumilast [Daliresp*] 500 mcg PO DAILY 30 Days #30 tab Followup: Yonatan Frank MD [Primary Care Provider] - 1-2 Weeks (f/u in 1 week with CBC and CMP) Time spent managing pt's care (in minutes): 32
[2025-03-23 10:29] VITALS: BP 113/59; TEMP 97.5
[2025-03-23 12:37] LABS: Band Neutrophils 1 % (0-1); Differential Total Cells Count 100; Eosinophils 1 % (0-3); Lymphocytes 15 % (15-42); Metamyelocytes 1 % (0-0); Monocytes 6 % (0-10); Segmented Neutrophils 76 % (40-80)
[2025-03-23 12:38] LABS: Blood Morphology Comment NOT SEEN (NOT SEEN); Platelet Estimate ADEQ
== END 2025-03-23 11:56 | disposition home health service (06) | DRG 189 ==
LOC: ER 08:19 → ERHOLD 10:44 → 2ND 12:07 → 3RD-ICU 03-15 16:40 → 2ND 03-18 09:41
PROVIDERS: ADMIT Hospitalist; ATTEND Hospitalist
PROC: 4A033R1 Measurement of Arterial Saturation, Peripheral, Percutaneous Approach (ICD-10-PCS; principal; 2025-03-15)
PROC: 5A09557 Assistance with Respiratory Ventilation, Greater than 96 Consecutive Hours, Continuous Positive Airway Pressure (ICD-10-PCS; 2025-03-15)
DX: J96.21 Acute and chronic respiratory failure with hypoxia (principal); J44.1 Chronic obstructive pulmonary disease with (acute) exacerbation; E87.20 Acidosis, unspecified; E66.2 Morbid (severe) obesity with alveolar hypoventilation; J96.22 Acute and chronic respiratory failure with hypercapnia; I10 Essential (primary) hypertension; N40.0 Benign prostatic hyperplasia without lower urinary tract symptoms; K21.9 Gastro-esophageal reflux disease without esophagitis; Z68.24 Body mass index [BMI] 24.0-24.9, adult; Z11.52 Encounter for screening for COVID-19; Z99.81 Dependence on supplemental oxygen; Z79.52 Long term (current) use of systemic steroids; Z79.899 Other long term (current) drug therapy; Z87.891 Personal history of nicotine dependence
CPT/HCPCS: 36415; 36600; 71045; 80048; 80053; 82805; 82947; 83036; 83605; 83735; 83880; 84100; 84484; 85025; 85610; 85730; 87040; 87070; 87205; 87428; 93005; 93306; 94640; 94660; 97116; 97161; 99285; J0696; J1120; J1650; J1938; J2470; J2919; J7030; J7050; J7512; J7613; J7614; J7644